=== PATIENT | male | born 1960 | race Caucasian/White ===

== ENCOUNTER → 2017-02-21 | Outpatient (CLI) | payer BC ==
[2017-02-24 18:04] LABS: Large VLDL Particle Number,NMR 1.8 nmol/L (<=2.7)
== END | disposition home or self-care (01) ==
LOC: LABWHC1 07:41
PROVIDERS: ATTEND Internal Medicine Cardiovascular Disease
DX: I10 Essential (primary) hypertension (principal)
CPT/HCPCS: 36415; 83704

== ENCOUNTER → 2017-04-23 | Outpatient (CLI) | payer BC ==
--- NOTE | 2017-04-23 10:12 | CT ---
EXAMINATION TYPE: CT abdomen pelvis w con DATE OF EXAM: 04/23/2017 COMPARISON: NONE HISTORY: 57-year-old male with full sensation, loss of appetite, wt loss TECHNIQUE: Contiguous axial scanning of the abdomen and pelvis following administration of 100 ml Omn ipaque 300 IV contrast. Delayed images through the kidneys and coronal/sagittal reconstructions perf ormed. CT DLP: 1859 mGycm Automated exposure control for dose reduction was used. FINDINGS: The heart is normal size without pericardial effusion. Visualized lung bases are clear without pleura l effusion. - There is paraesophageal lymphadenopathy measuring up to 2.8 cm. Some areas are difficult to delinea te from the distal esophagus. - Retrocrural lymphadenopathy measuring up to 1.2 cm on the right. - Gastrohepatic ligament lymph nodes measuring up to 1 cm. - Peripancreatic lymph nodes measuring up to 1.3 cm. Numerous are present. - Lymph nodes at the splenic hilum are conglomerate measuring up to 5.8 cm. - Portacaval lymph node measures up to 2.0 cm. - Retroperitoneal lymphadenopathy is present diffusely largest in the left periaortic region measurin g up to 4.7 x 2.6 cm. - Right mid abdominal mesenteric mass is conglomerate measuring up to 12.9 x 11.9 cm. There is focal wall thickening of the small bowel which shows focal dilatation along the third segmen t of the duodenum, axial image 43. Spleen enlarged measuring 16.3 cm craniocaudal with multiple hypodense lesions measuring up to 6.1 cm . Tiny subcentimeter hypodensities within the right liver lobe are nonspecific, probable cysts. 1.3 cm hypodensity posterior upper pole right kidney too small for accurate CT characterization but p robably representing a cyst. Gallbladder, adrenal glands, and left kidney within normal limits. No definite abnormality of the ball creas though there are multiple adjacent peripancreatic lymph nodes. There is otherwise no dilated small bowel or free air. Oral contrast has progressed to the proximal t ransverse colon. No significant stool burden. Sigmoid diverticulosis without pericolonic inflammatory change. Mild to moderate circumferential bladder wall thickening. Prostate gland mildly enlarged at 5.1 cm wi de with central calcifications. Trace pelvic free fluid is noted. No pelvic lymphadenopathy seen. Bones: Endplate spondylosis lower thoracic spine. No osseous destructive process. IMPRESSION: 1. LOWER PARAESOPHAGEAL, UPPER ABDOMINAL, MESENTERIC, AND RETROPERITONEAL LYMPHADENOPATHY. LARGEST CO NGLOMERATE SABAS MASS IS IN THE RIGHT MESENTERY MEASURING UP TO 12.9 CM AND LEFT PERIAORTIC LYMPH NOD E MEASURES UP TO 4.7 CM. 2. ADDITIONAL SPLENOMEGALY (16.3 CM) WITH NUMEROUS LESIONS MEASURING UP TO 6.1 CM. 3. FOCAL WALL THICKENING OF THE THIRD PORTION OF THE DUODENUM WHICH SHOWS SOME ANEURYSMAL DILATATION. 4. GIVEN THE ABOVE FINDINGS, LYMPHOMA IS FAVORED. METASTATIC DISEASE FROM AN UNKNOWN PRIMARY WOULD BE THE ALTERNATIVE CONSIDERATION. 5. SOME OF THE PARAESOPHAGEAL SOFT TISSUE IS DIFFICULT TO SEPARATE FROM THE ESOPHAGUS. WHILE AN ESOPH AGEAL MASS IS CONSIDERED LESS LIKELY, DIRECT VISUALIZATION CAN EXCLUDE THIS POSSIBILITY. 6. SIGMOID DIVERTICULOSIS. 7. CIRCUMFERENTIAL BLADDER WALL THICKENING COULD REPRESENT CYSTITIS OR CHRONIC BLADDER WALL HYPERTROP HY. CLINICALLY CORRELATE.
== END | disposition home or self-care (01) ==
LOC: RADCTMAIN 07:24
PROVIDERS: ATTEND Family Medicine
DX: R59.0 Localized enlarged lymph nodes (principal); K57.90 Diverticulosis of intestine, part unspecified, without perforation or abscess without bleeding; R16.1 Splenomegaly, not elsewhere classified; E07.89 Other specified disorders of thyroid; N32.89 Other specified disorders of bladder
CPT/HCPCS: 74177; Q9967

== ENCOUNTER 2017-05-07 12:08 | Day surgery (SDC) | payer BC ==
--- NOTE | 2017-05-07 13:59 | US ---
ULTRASOUND GUIDED CORE BIOPSY LEFT NECK LYMPHADENOPATHY: CLINICAL HISTORY: Left supraclavicular lymphadenopathy FINDINGS: The procedure was explained to the patient. The risks, complications, benefits and alternatives were discussed and any questions were answered. Informed consent was obtained. Patient was placed supin e on the ultrasound table and prepped and draped in the usual sterile fashion. Utilizing a 18-gauge core biopsy needle, four passes were made into the left neck mass. Patient was stable throughout the procedure. Pathology is pending. All elements of maximal barrier and sterile technique were utilized. IMPRESSION: 1. Successful ultrasound guided core biopsy left neck mass. Pathology pending.
[2017-05-07 23:27] VITALS: BP 141/73; PULSE 85; RESP 16; TEMP 97.3
== END 2017-05-07 13:25 | disposition home or self-care (01) ==
LOC: RADPROMAIN 12:08
PROVIDERS: ATTEND Internal Medicine Hematology & Oncology
DX: C83.31 Diffuse large B-cell lymphoma, lymph nodes of head, face, and neck (principal)
CPT/HCPCS: 20206; 76942; 88305; 88341; 88342

== ENCOUNTER → 2017-05-10 | Outpatient (CLI) | payer BC ==
--- NOTE | 2017-05-10 22:48 | PE ---
EXAMINATION TYPE: PET CT fusion skull to thigh DATE OF EXAM: 05/10/2017 COMPARISON: CT abdomen and pelvis April 23, 2017 HISTORY: Newly diagnosed lymphoma. TECHNIQUE: Following the intravenous administration of 14.49 mCi of F-18 FDG, whole body images are performed from the skull base to the midthigh. Images are reviewed on the computer in the coronal, a xial, and sagittal planes. Reconstructed rotating images are created on independent workstation and reviewed on the computer. A noncontrast CT is performed in conjunction with the PET scan. SCAN: Initial Scan FINDINGS: Average SUV of liver: 1.67 Average SUV of mediastinum: 0.83 SKULL BASE AND NECK: There is hypermetabolic 4 mm lymph node posterior left parotid gland on axial i mage 32. Corresponding to recent biopsy there are multiple hypermetabolic left supraclavicular lymph nodes bret r axial image 46 which have almost confluent appearance anteriorly, max SUV at this level is 17.58. T here is inferior and medial extension to the level of left thyroid gland noted. There are posterior supraclavicular hypermetabolic lymph nodes, for reference 10 x 9 mm lymph node an teriorly and medially to adjacent lymph node on axial image 46 has max SUV of 13.92. There are abnormal right supraclavicular lymph nodes with hypermetabolic uptake also identified near right thyroid lobe. CHEST, MEDIASTINUM, AND HILAR REGION: There is abnormal hypermetabolic left axillary lymph node measu ring 1.7 x 0.8 cm axial image 78 with max SUV of 11.88s. No suspicious right axillary adenopathy is p resent. There is large abnormal hypermetabolic subcarinal mass, this measures 5.7 x 3.0 cm axial image 92, ma x SUV is 25.19. Inferior to this there is abnormal hypermetabolic paraesophageal lymph node measuring 4.4 x 2.9 cm axial image 106 with max SUV of 19.8. There are additional multiple abnormal thoracic l ymph nodes prevascular region and paratracheal region, largest measures 1.6 x 1.5 cm axial image 78 w ith max SUV of 19.39. ABDOMEN AND PELVIS: There is marked splenomegaly with lobulation multifocal areas of hypermetabolic u ptake, measurement of lesions is difficult as they are fairly isodense on noncontrast study. Discrete lesions are seen better on recent contrast-enhanced CT. There is a central necrotic large lesion bret r axial image 120 with max SUV of. There is abnormal perisplenic and peripancreatic adenopathy in the upper abdomen near axial image 138 , confluent lymph node measures 4.3 x 4.2 cm, max SUV is 17.61. There are abnormal mesenteric and retroperitoneal lymph nodes, large right-sided confluent adenopathy felt to reflect mass of multiple lymph nodes is seen axial image 172 measuring 10 cm AP diameter by 12 cm transversely, max SUV is 27.76. Local mass effect is present. One of larger retroperitoneal lym ph nodes at the left para-aortic level posteriorly measuring 3.1 x 2.6 cm axial image 150, max SUV is 25.28. There is abnormal hypermetabolic right iliac lymph node measuring 2.3 x 1.0 cm axial image 207 with m ax SUV of 7.52. There are additional subcentimeter hypermetabolic distal right external iliac chain lymph nodes. Max SUV is 4.77. No definitive abnormal left pelvic or groin lymph nodes are seen bilaterally. OSSEOUS STRUCTURES: No abnormal hypermetabolic uptake is seen in osseous structures. OTHER CT: There is new fairly moderate to large size right pleural effusion. There is stable tiny pericardial effusion. There is stable irregular lesion with central gas in the posterior mid abdomen just anterior to the a wade just left of midline axial image 161 worrisome for large diverticulum or duodenal abscess. Corre late clinically. There is new inferior oval density axial image 165 could reflect ingested pill. Necr otic adenopathy is in differential. Sigmoid colonic diverticulosis is redemonstrated. Bladder wall thickness is felt upper limits of normal on current study. Some central zone calcificati ons in slightly enlarged prostate gland is redemonstrated. There is mild facet arthropathy lower lumbar levels. IMPRESSION: 1. There is lymphoma or neoplastic involvement above and below diaphragm as detailed above. 2. New moderate to large size right pleural effusion . 3. Persistent suspicious lesion anterior to distal third portion of duodenum could reflect intra-abdo frida abscess. Correlate clinically.
== END | disposition home or self-care (01) ==
LOC: RADPETMAIN 10:50
PROVIDERS: ATTEND Internal Medicine Hematology & Oncology
DX: C96.Z Other specified malignant neoplasms of lymphoid, hematopoietic and related tissue (principal); J90 Pleural effusion, not elsewhere classified
CPT/HCPCS: 78815; A9552

== ENCOUNTER 2017-05-14 10:02 | Day surgery (SDC) | payer BC ==
[2017-05-14 10:22] VITALS: TEMP 98.6
--- NOTE | 2017-05-14 10:42 | P.GSHP ---
History of Present Illness H&P Date: 05/14/17 Chief Complaint: Lymphoma Patient has been having complaints of pain in the upper abdomen. A CAT scan showed lymphadenopathy suspicious for lymphoma. A needle biopsy of a lymph node in the left neck took place confirming lymphoma. Patient is here today for Port-A-Cath placement. He is also going to have a bone marrow biopsy done simultaneously. Past Medical History Past Medical History: Hypertension Additional Past Medical History / Comment(s): being investigated for lymphoma History of Any Multi-Drug Resistant Organisms: None Reported Past Psychological History: No Psychological Hx Reported Smoking Status: Never smoker Past Alcohol Use History: Occasional Past Drug Use History: None Reported - Past Family History Father Family Medical History: Prostate Disorder Medications and Allergies Home Medications Medication Instructions Recorded Confirmed Type Aspirin [Adult Low Dose Aspirin EC] 81 mg PO DAILY 05/07/17 05/07/17 History Losartan/Hydrochlorothiazide 1 each PO DAILY 05/07/17 05/07/17 History [Losartan-Hctz 100-25 mg Tab] Metoprolol Succinate [Toprol XL] 50 mg PO DAILY 05/07/17 05/07/17 History Potassium Chloride [Klor-Con 10] 10 meq PO DAILY 05/07/17 05/07/17 History Tamsulosin HCl [Flomax] 0.4 mg PO DAILY 05/07/17 05/07/17 History amLODIPine [Norvasc] 10 mg PO DAILY 05/07/17 05/07/17 History Allergies Allergy/AdvReac Type Severity Reaction Status Date / Time No Known Allergies Allergy Verified 05/14/17 10:40 Surgical - Exam Vital Signs Temp Pulse Resp BP Pulse Ox 98.6 F 95 18 131/69 95 05/14/17 10:21 05/14/17 10:21 05/14/17 10:21 05/14/17 10:21 05/14/17 10:21 Physical exam: General: Well-developed, well-nourished HEENT: Normocephalic, sclerae nonicteric, left neck adenopathy Abdomen: Nontender, nondistended Extremities: No edema Neuro: Alert and oriented Assessment and Plan (1) Lymphoma Narrative/Plan: Will proceed with Port-A-Cath placement at this time. Risks of bleeding, infection, DVT, pneumothorax, catheter malfunction, anesthesia related complications were discussed. The patient understands and wishes to proceed. Current Visit: Yes Status: Acute Code(s): C85.90 - NON-HODGKIN LYMPHOMA, UNSPECIFIED, UNSPECIFIED SITE SNOMED Code(s): 816184221
[2017-05-14] MEDS ORDERED: LIDOCAINE 1% 20 ML VIAL (10MG/ML) FOR IV START INTRADERMA ONE (11:00)
[2017-05-14] MEDS ORDERED: LACTATED RINGERS 1,000 ML IV ONE (11:04)
[2017-05-14] MEDS ORDERED: MIDAZOLAM 2 MG/2 ML VIAL ONE (11:10)
[2017-05-14] MEDS ORDERED: GLYCOPYRROLATE 0.2 MG/ML 2 ML VIAL ONE (11:10)
[2017-05-14] MEDS ORDERED: PROPOFOL 10 MG/ML 20 ML VIAL IV ONE (11:10)
[2017-05-14] MEDS ORDERED: KETAMINE 10 MG/ML 20 ML VIAL ONE (11:10)
[2017-05-14] MEDS ORDERED: fentaNYL (PF) 50 MCG/ML 2 ML AMP ONE (11:10)
[2017-05-14] MEDS ORDERED: SODIUM CHLORIDE 0.9% 50 ML with ceFAZolin 2,000 MG IV ONE ×2 (11:30)
[2017-05-14] MEDS ORDERED: HEPARIN SODIUM,PORCINE 100 UNIT/ML 5 ML VIAL IV ONE (11:35)
[2017-05-14] MEDS ORDERED: LIDOCAINE (PF) 10 MG/ML 2 ML VIAL SQ ONE (11:36)
[2017-05-14] MEDS ORDERED: HYDROcodone/APAP 5-325MG 1 EACH TAB PO PRN (12:09)
[2017-05-14] MEDS ORDERED: NALOXONE 0.4 MG/ML 1 ML VIAL IV PRN (12:09)
--- NOTE | 2017-05-14 12:09 | P.OP ---
Date of Procedure: 05/14/17 Procedure(s) Performed: PREOPERATIVE DIAGNOSIS: Lymphoma POSTOPERATIVE DIAGNOSIS: Same PROCEDURE: Port-A-Cath placement SURGEON: Mary EBL: Minimal ANESTHESIA: Sedation COMPLICATIONS: None OPERATIVE PROCEDURE: Patient was brought and placed on the operative table in the supine position. The patient was sedated per anesthesia that time. The chest and neck were prepped and draped in usual sterile fashion. The ultrasound probe was used to identify the location of the right internal jugular vein. The skin was localized with lidocaine. The Seldinger needle was advanced into the IJ under ultrasound guidance. The wire was advanced through the needle under fluoroscopic guidance into the superior vena cava. A port pocket was created in the right infraclavicular location. The catheter was tunneled from the wire entrance site to the port pocket. The port was then connected to the catheter. The dilator introducer was threaded over the guidewire. The guidewire and dilator were then removed. The catheter was advanced through the introducer and introducer was then removed. The tip was seen to be in the right atrial junction. Port was flushed with both saline and a Hep-Lock solution. There was good flow both in and out of the port. The port was sutured in underlying tissues using 3-0 silk sutures. The subcutaneous tissues were reapproximated using 3-0 Vicryl sutures and the skin at both locations using 4-0 Monocryl sutures. Steri-Strips and sterile dressings then applied. DISPOSITION: Stable to recovery room
[2017-05-14] MEDS ORDERED: LIDOCAINE 2% (PF) 20 MG/ML 2 ML VIAL SQ ONE (12:12)
--- NOTE | 2017-05-14 12:15 | FL ---
Fluoroscopy History: Port-A-Cath insertion dr. oreilly supervised use of anastacio for the insert of a portacath. 33 secs fluoro and 1 paper image
[2017-05-14] MEDS ORDERED: DEXAMETHASONE SOD PHOSPHATE 10 MG/ML 1 ML VIAL IV ONE (12:39)
[2017-05-14] MEDS ORDERED: LACTATED RINGERS 1,000 ML IV SCH (12:39)
[2017-05-14] MEDS ORDERED: HYDROmorphone 0.5 MG/0.5 ML SYRINGE IVP PRN (12:39)
[2017-05-14] MEDS ORDERED: ONDANSETRON 4 MG/2 ML VIAL IVP ONE (12:39)
[2017-05-14 12:53] VITALS: RESP 16
--- NOTE | 2017-05-14 12:58 | XR ---
EXAMINATION TYPE: XR chest 1V DATE OF EXAM: 05/14/2017 HISTORY: Line placement COMPARISON: None TECHNIQUE: Single view of the chest is submitted. FINDINGS: Right-sided central venous line is noted with its distal tip overlying the SVC. There is no evidence for pneumothorax. Demonstrated are scattered senescent parenchymal change. Right basilar infiltrate and/or atelectasis identified. The heart is stable. Hilar and mediastinal structures are within normal limits. Degenerative changes are seen of the dorsal spine. IMPRESSION: 1. Right-sided central venous line as discussed.
[2017-05-14 13:20] VITALS: BP 112/74; PULSE 77
[2017-05-14 13:38] LABS: Basophils # (A) 0.1 k/uL (0-0.2); Basophils % (A) 1 %; Eosinophils # (A) 0.1 k/uL (0-0.7); Eosinophils % (A) 2 %; HCT 35.3 % (39.0-53.0); Lymphocytes # (A) 0.2 k/uL (1.0-4.8); Lymphocytes % (A) 5 %; MCH 26.4 pg (25.0-35.0); MCHC 31.2 g/dL (31.0-37.0); MCV 84.7 fL (80.0-100.0); Mean Platelet Volume 8.6; Monocytes # (A) 0.6 k/uL (0-1.0); Monocytes % (A) 12 %; Neutrophils # (A) 3.8 k/uL (1.3-7.7); Neutrophils % (A) 78 %; Platelet Count 213 k/uL (150-450); RBC 4.17 m/uL (4.30-5.90); RDW 13.9 % (11.5-15.5); WBC 4.9 k/uL (3.8-10.6)
--- NOTE | 2017-05-14 14:17 | PCN ---
PROCEDURE NOTE DATE OF PROCEDURE: May 14, 2017. PREOP DIAGNOSIS: Non-Hodgkin lymphoma. POSTOP DIAGNOSIS: Non-Hodgkin lymphoma. PROCEDURE: Bone marrow aspirate and biopsy SITE: Right iliac crest. ANESTHESIA: Local with IV systemic sedation. DETAILS: Utilizing sterile technique, the skin overlying the right iliac crest was prepared with Betadine and alcohol. After adequate sterile draping systemic sedation, local anesthesia with 1% lidocaine size 11 4 inch Jamshidi needle utilized to access the periosteum disease. A total of 15 mL of aspirate were obtained as well as 1 cm core biopsy. The patient tolerated the procedure well. There was no immediate procedure related complications. TOTAL BLOOD LOSS: Less than 1 mL. RESULTS: Pending. MMODL / IJN: [id number] /
== END 2017-05-14 13:35 | disposition home or self-care (01) ==
LOC: OR 10:02
PROVIDERS: ATTEND Surgery
DX: C85.81 Other specified types of non-Hodgkin lymphoma, lymph nodes of head, face, and neck (principal); I10 Essential (primary) hypertension; N42.9 Disorder of prostate, unspecified; Z79.82 Long term (current) use of aspirin; Z79.899 Other long term (current) drug therapy
CPT/HCPCS: 36561; 76937; 38222; 85025; 77001; 71045; C1788; J2250; J2001 ×2; J1642; J3010; J0690; J2704

== ENCOUNTER 2017-05-19 09:47 | Inpatient (IN) | payer BC ==
--- NOTE | 2017-05-19 10:36 | ED ---
General Adult HPI - General Chief complaint: Shortness of Breath Stated complaint: MERLENE, COUGH FOLLOWING SUHAIL PORT Time Seen by Provider: 05/19/17 10:00 Source: patient, RN notes reviewed Mode of arrival: ambulatory Limitations: no limitations - History of Present Illness Initial comments: This is a 57-year-old male who presents emergency Department with a recent diagnosis of lymphoma May 05. Patient had a port placed last Friday. Patient states over the last couple of days he's been short of breath and is finding it difficult to even walk from room to room. Patient denies any chest pain or palpitations. Patient states he does not have a fever or chills today but the other day he did have a temp of 100. Patient denies any significant abdominal pain patient denies nausea vomiting diarrhea. Denies any lightheadedness or dizziness. - Related Data Home Medications Medication Instructions Recorded Confirmed Losartan/Hydrochlorothiazide 1 tab PO DAILY 05/07/17 05/19/17 [Losartan-Hctz 100-25 mg Tab] Metoprolol Succinate [Toprol XL] 50 mg PO DAILY 05/07/17 05/19/17 Potassium Chloride [Klor-Con 10] 10 meq PO DAILY 05/07/17 05/19/17 Tamsulosin HCl [Flomax] 0.4 mg PO HS 05/07/17 05/19/17 amLODIPine [Norvasc] 10 mg PO HS 05/07/17 05/19/17 Allergies Allergy/AdvReac Type Severity Reaction Status Date / Time No Known Allergies Allergy Verified 05/19/17 10:34 Review of Systems ROS Statement: Those systems with pertinent positive or pertinent negative responses have been documented in the HPI. ROS Other: All systems not noted in ROS Statement are negative. Past Medical History Past Medical History: Cancer, Hypertension Additional Past Medical History / Comment(s): being investigated for lymphoma History of Any Multi-Drug Resistant Organisms: None Reported Additional Past Surgical History / Comment(s): port placement Past Psychological History: No Psychological Hx Reported Smoking Status: Never smoker Past Alcohol Use History: Occasional Past Drug Use History: None Reported - Past Family History Father Family Medical History: Prostate Disorder General Exam - General Exam Comments Initial Comments: GENERAL: Patient is well-developed and well-nourished. Patient is nontoxic and well- hydrated and is in mild distress. ENT: Neck is soft and supple. No significant lymphadenopathy is noted. Oropharynx is clear. Moist mucous membranes. Neck has full range of motion without eliciting any pain. EYES: The sclera were anicteric and conjunctiva were pink and moist. Extraocular movements were intact and pupils were equal round and reactive to light. Eyelids were unremarkable. PULMONARY: Lung sounds are very diminished along the right side. CARDIOVASCULAR: There is a regular rate and rhythm without any murmurs gallops or rubs. ABDOMEN: Soft and nontender with normal bowel sounds. No palpable organomegaly was noted. There is no palpable pulsatile mass. SKIN: Skin is clear with no lesions or rashes and otherwise unremarkable. NEUROLOGIC: Patient is alert and oriented x3. Cranial nerves II through XII are grossly intact. Motor and sensory are also intact. Normal speech, volume and content. Symmetrical smile. MUSCULOSKELETAL: Normal extremities with adequate strength and full range of motion. No edema bilaterally no calf pain bilaterally LYMPHATICS: No significant lymphadenopathy is noted PSYCHIATRIC: Normal psychiatric evaluation. Normal interpersonal interactions appears functionally intact in deals appropriately with others. No signs of depression. No signs of anxiety. Limitations: no limitations Course Vital Signs 05/19/17 05/19/17 05/19/17 10:01 10:15 12:55 Temperature 98.0 F Pulse Rate 99 90 Respiratory 18 26 H 18 Rate Blood Pressure 158/91 134/81 O2 Sat by Pulse 95 92 L Oximetry Medical Decision Making - Medical Decision Making EKG shows normal sinus rhythm at 93 bpm. It was 116 QRS is 86 QT interval 350 QTC is 435. Patient's EKG shows Q waves in leads 3 and aVF. - Lab Data Result diagrams: 05/19/17 10:30 05/19/17 10:30 Lab Results 05/19/17 05/19/17 05/19/17 Range/Units 10:30 10:30 10:30 WBC 6.5 (3.8-10.6) k/uL RBC 5.04 (4.30-5.90) m/uL Hgb 13.1 (13.0-17.5) gm/dL Hct 41.5 (39.0-53.0) % MCV 82.4 (80.0-100.0) fL MCH 26.0 (25.0-35.0) pg MCHC 31.6 (31.0-37.0) g/dL RDW 15.1 (11.5-15.5) % Plt Count 257 (150-450) k/uL Neutrophils % 80 % Lymphocytes % 4 % Monocytes % 10 % Eosinophils % 2 % Basophils % 1 % Neutrophils # 5.2 (1.3-7.7) k/uL Lymphocytes # 0.3 L (1.0-4.8) k/uL Monocytes # 0.7 (0-1.0) k/uL Eosinophils # 0.1 (0-0.7) k/uL Basophils # 0.1 (0-0.2) k/uL PT (9.0-12.0) sec INR (<1.2) APTT (22.0-30.0) sec D-Dimer (<0.60) mg/L FEU Sodium 142 (137-145) mmol/L Potassium 3.5 (3.5-5.1) mmol/L Chloride 103 (98-107) mmol/L Carbon Dioxide 27 (22-30) mmol/L Anion Gap 12 mmol/L BUN 20 (9-20) mg/dL Creatinine 1.01 (0.66-1.25) mg/dL Est GFR (MDRD) Af Amer >60 (>60 ml/min/1.73 sqM) Est GFR (MDRD) Non-Af >60 (>60 ml/min/1.73 sqM) Glucose 114 H (74-99) mg/dL Calcium 10.4 H (8.4-10.2) mg/dL Magnesium 2.0 (1.6-2.3) mg/dL Total Bilirubin 0.7 (0.2-1.3) mg/dL AST 46 (17-59) U/L ALT 26 (21-72) U/L Alkaline Phosphatase 59 (38-126) U/L Total Creatine Kinase 30 L (55-170) U/L CK-MB (CK-2) 0.6 (0.0-2.4) ng/mL CK-MB (CK-2) Rel Index 2.0 Troponin I <0.012 (0.000-0.034) ng/mL NT-Pro-B Natriuret Pep pg/mL Total Protein 6.7 (6.3-8.2) g/dL Albumin 4.0 (3.5-5.0) g/dL 05/19/17 05/19/17 Range/Units 10:30 10:30 WBC (3.8-10.6) k/uL RBC (4.30-5.90) m/uL Hgb (13.0-17.5) gm/dL Hct (39.0-53.0) % MCV (80.0-100.0) fL MCH (25.0-35.0) pg MCHC (31.0-37.0) g/dL RDW (11.5-15.5) % Plt Count (150-450) k/uL Neutrophils % % Lymphocytes % % Monocytes % % Eosinophils % % Basophils % % Neutrophils # (1.3-7.7) k/uL Lymphocytes # (1.0-4.8) k/uL Monocytes # (0-1.0) k/uL Eosinophils # (0-0.7) k/uL Basophils # (0-0.2) k/uL PT 10.8 (9.0-12.0) sec INR 1.1 (<1.2) APTT 23.3 (22.0-30.0) sec D-Dimer 4.41 H (<0.60) mg/L FEU Sodium (137-145) mmol/L Potassium (3.5-5.1) mmol/L Chloride (98-107) mmol/L Carbon Dioxide (22-30) mmol/L Anion Gap mmol/L BUN (9-20) mg/dL Creatinine (0.66-1.25) mg/dL Est GFR (MDRD) Af Amer (>60 ml/min/1.73 sqM) Est GFR (MDRD) Non-Af (>60 ml/min/1.73 sqM) Glucose (74-99) mg/dL Calcium (8.4-10.2) mg/dL Magnesium (1.6-2.3) mg/dL Total Bilirubin (0.2-1.3) mg/dL AST (17-59) U/L ALT (21-72) U/L Alkaline Phosphatase (38-126) U/L Total Creatine Kinase (55-170) U/L CK-MB (CK-2) (0.0-2.4) ng/mL CK-MB (CK-2) Rel Index Troponin I (0.000-0.034) ng/mL NT-Pro-B Natriuret Pep 243 pg/mL Total Protein (6.3-8.2) g/dL Albumin (3.5-5.0) g/dL Disposition Clinical Impression: Pleural effusion, Collapsed lung, History of lymphoma Disposition: ADMITTED IP TO THIS HOSP Referrals: Estee Trinh III, MD [Primary Care Provider] - 1-2 days Time of Disposition: 13:25
[2017-05-19 10:48] LABS: Basophils # (A) 0.1 k/uL (0-0.2); Basophils % (A) 1 %; Eosinophils # (A) 0.1 k/uL (0-0.7); Eosinophils % (A) 2 %; HCT 41.5 % (39.0-53.0); HGB 13.1 gm/dL (13.0-17.5); Lymphocytes # (A) 0.3 k/uL (1.0-4.8); Lymphocytes % (A) 4 %; MCHC 31.6 g/dL (31.0-37.0); MCV 82.4 fL (80.0-100.0); Mean Platelet Volume 8.2; Monocytes # (A) 0.7 k/uL (0-1.0); Monocytes % (A) 10 %; Neutrophils # (A) 5.2 k/uL (1.3-7.7); Neutrophils % (A) 80 %; Platelet Count 257 k/uL (150-450); RBC 5.04 m/uL (4.30-5.90); RDW 15.1 % (11.5-15.5); WBC 6.5 k/uL (3.8-10.6)
[2017-05-19 10:56] LABS: ALT 26 U/L (21-72); AST 46 U/L (17-59); Alkaline Phosphatase 59 U/L (38-126); Anion Gap 12 mmol/L; Blood Urea Nitrogen 20 mg/dL (9-20); Calcium 10.4 mg/dL (8.4-10.2); Carbon Dioxide 27 mmol/L (22-30); Chloride 103 mmol/L (98-107); Glucose 114 mg/dL (74-99); Potassium 3.5 mmol/L (3.5-5.1); Sodium 142 mmol/L (137-145); Total Bilirubin 0.7 mg/dL (0.2-1.3); Total Protein 6.7 g/dL (6.3-8.2)
[2017-05-19 11:09] LABS: D-Dimer 4.41 mg/L FEU (<0.60); INR 1.1 (<1.2); Partial Thromboplastin Time 23.3 sec (22.0-30.0); Prothrombin Time 10.8 sec (9.0-12.0)
--- NOTE | 2017-05-19 11:14 | XR ---
EXAMINATION TYPE: XR chest 2V DATE OF EXAM: 05/19/2017 COMPARISON: 05/14/2017 HISTORY: 57-year-old male difficulty breathing, shortness of breath for 3 days TECHNIQUE: PA and lateral views FINDINGS: Right heart margin obscured by new complete whiteout of the right hemithorax. The left hemithorax rem ains clear. Right-sided injection port with catheter tip at the lower SVC. IMPRESSION: Worsening right-sided pleural effusion now with complete white out of the right hemithorax.
[2017-05-19 11:15] LABS: Creatine Kinase 30 U/L (55-170)
[2017-05-19 11:28] LABS: Creatine Kinase MB 0.6 ng/mL (0.0-2.4); Troponin I <0.012 ng/mL (0.000-0.034)
[2017-05-19] MEDS ORDERED: RX INFO: IV CONTRAST WAS GIVEN 1 EACH MISC MISCELLANE PRN (11:59)
--- NOTE | 2017-05-19 12:49 | CT ---
EXAMINATION TYPE: CT chest angio for PE DATE OF EXAM: 05/19/2017 COMPARISON: 04/23/2017 HISTORY: Shortness of breath and cough CT DLP: 526 mGycm CONTRAST: CT chest with contrast and 3D reconstruction with MIP imaging is performed with IV Contrast, patient injected with 100 mL of Omnipaque 350. Contrast-enhanced CT of the chest was performed through the course of the pulmonary arteries with zabrina g and mediastinal window settings submitted. 3D reconstruction with MIP imaging was also performed. PULMONARY ARTERIES: The pulmonary arteries and their major tributaries are patent. I do not see ricci dence for sizable filling defect to suggest pulmonary embolic process. LUNGS: Interval development of complete collapse of the right lung with filling of the entire right h emithorax with fluid. Suspect central obstructing lesion. Left lung is hypoaerated without distinct n odule mass or infiltrate at this time. MEDIASTINUM: Mediastinal structures are displaced from right to left. Thoracic aorta is of normal ca liber . The heart is not enlarged. Soft tissue mass adjacent to the esophagus displacing it from righ t to left measures 4.4 cm and has been described previously. This mass may BE of esophageal origin or related to adenopathy. Right paratracheal adenopathy measures 1.8 cm. AP window adenopathy measures 1.8 cm. UPPER ABDOMEN: Upper abdominal adenopathy described previously. Multiple splenic lesions. IMPRESSION: 1. No evidence for Pulmonary embolism at this time. 2.Interval development of complete collapse of the right lung with filling of the entire right hemith orax with fluid. Suspect central obstructing lesion. 3. Soft tissue mass adjacent to the mid to distal esophagus as discussed above.
--- NOTE | 2017-05-19 17:07 | P.HPIM ---
History of Present Illness This is a 57-year-old male who presents emergency Department with a recent diagnosis of lymphoma May 05. Patient had a port placed last Friday. Patient states over the last couple of days he's been short of breath and is finding it difficult to even walk from room to room. Patient denies any chest pain or palpitations. Patient states he does not have a fever or chills today but the other day he did have a temp of 100. Patient denies any significant abdominal pain patient denies nausea vomiting diarrhea. Denies any lightheadedness or dizziness. Patient did get a CAT scan which showed A pleural effusion involving the whole entire right hemithorax. A low-grade fever although does not appear to have pneumonic process low-grade fever is probably related to lymphoma itself and patient had a recent right hemithorax port put in. Does have dry cough from pleural effusion. Pulmonology was consulted patient probably will need cardiac thoracic surgery consult as well discussed with the Dr. Hernandez who put in the Port-A-Cath Review of Systems REVIEW OF SYSTEMS: CONSTITUTIONAL: No fever, no malaise, no fatigue. HEENT: No recent visual problems or hearing problems. Denied any sore throat. CARDIOVASCULAR: No chest pain, orthopnea, PND, no palpitations, no syncope. PULMONARY: As mentioned above GASTROINTESTINAL: No diarrhea, no nausea, no vomiting, no abdominal pain. Normoactive bowel sounds. NEUROLOGICAL: No headaches, no weakness, no numbness. HEMATOLOGICAL: Denies any bleeding or petechiae. GENITOURINARY: Denies any burning micturition, frequency, or urgency. MUSCULOSKELETAL/RHEUMATOLOGICAL: Denies any joint pain, swelling, or any muscle pain. ENDOCRINE: Denies any polyuria or polydipsia. The rest of the 14-point review of systems is negative. Past Medical History Past Medical History: Cancer, Hypertension, Prostate Disorder Additional Past Medical History / Comment(s): Lymphoma recently diagonosed, BPH History of Any Multi-Drug Resistant Organisms: None Reported Additional Past Surgical History / Comment(s): port placement, BMA, 2013 colonoscopy, anal fissure repair. Past Anesthesia/Blood Transfusion Reactions: No Reported Reaction Smoking Status: Never smoker - Past Family History Father Family Medical History: Prostate Disorder Additional Family Medical History / Comment(s): Father had prostrate cancer. He had a mass in his chest. Mother Family Medical History: Hypertension Additional Family Medical History / Comment(s): Mother of a aortic aneurysm dissection. Medications and Allergies Home Medications Medication Instructions Recorded Confirmed Type Losartan/Hydrochlorothiazide 1 tab PO DAILY 05/07/17 05/19/17 History [Losartan-Hctz 100-25 mg Tab] Metoprolol Succinate [Toprol XL] 50 mg PO DAILY 05/07/17 05/19/17 History Potassium Chloride [Klor-Con 10] 10 meq PO DAILY 05/07/17 05/19/17 History Tamsulosin HCl [Flomax] 0.4 mg PO HS 05/07/17 05/19/17 History amLODIPine [Norvasc] 10 mg PO HS 05/07/17 05/19/17 History Allergies Allergy/AdvReac Type Severity Reaction Status Date / Time No Known Allergies Allergy Verified 05/19/17 10:34 Physical Exam Vitals: Vital Signs Temp Pulse Pulse Resp BP BP Pulse Ox 05/19/17 15:24 20 05/19/17 15:00 98.5 F 93 18 134/91 97 05/19/17 14:08 62 20 123/79 93 L 05/19/17 12:55 90 18 134/81 92 L 05/19/17 10:15 26 H 05/19/17 10:01 98.0 F 99 18 158/91 95 Intake and Output 05/19/17 05/19/17 05/19/17 06:59 14:59 22:59 Other: Voiding Method Toilet # Voids 1 Weight 99.79 kg Patient Weight 05/20/17 06:59 Weight 99.79 kg PHYSICAL EXAMINATION: GENERAL: The patient is alert and oriented x3, not in any acute distress. Well developed, well nourished. HEENT: Pupils are round and equally reacting to light. EOMI. No scleral icterus. No conjunctival pallor. Normocephalic, atraumatic. No pharyngeal erythema. No thyromegaly. CARDIOVASCULAR: S1 and S2 present. No murmurs, rubs, or gallops. PULMONARY: Decreased air entry into right lung cid and stony dullness on the right side ABDOMEN: Soft, nontender, nondistended, normoactive bowel sounds. No palpable organomegaly. MUSCULOSKELETAL: No joint swelling or deformity. EXTREMITIES: No cyanosis, clubbing, or pedal edema. NEUROLOGICAL: Gross neurological examination did not reveal any focal deficits. SKIN: No rashes. Results CBC & Chem 7: 05/19/17 10:30 05/19/17 10:30 Labs: Abnormal Lab Results - Last 24 Hours (Table) 05/19/17 05/19/17 05/19/17 Range/Units 10:30 10:30 10:30 Lymphocytes # 0.3 L (1.0-4.8) k/uL D-Dimer (<0.60) mg/L FEU Glucose 114 H (74-99) mg/dL Calcium 10.4 H (8.4-10.2) mg/dL Total Creatine Kinase 30 L (55-170) U/L 05/19/17 Range/Units 10:30 Lymphocytes # (1.0-4.8) k/uL D-Dimer 4.41 H (<0.60) mg/L FEU Glucose (74-99) mg/dL Calcium (8.4-10.2) mg/dL Total Creatine Kinase (55-170) U/L Thrombosis Risk Factor Assmnt - Choose All That Apply Any of the Below Risk Factors Present?: Yes Each Factor Represents 1 point: Age 41-60 years, Obesity (BMI >25) Other Risk Factors: Yes Each Risk Factor Represents 2 Points: Malignancy Other congenital or acquired thrombophilia - If yes, enter type in comment: No Thrombosis Risk Factor Assessment Total Risk Factor Score: 4 Thrombosis Risk Factor Assessment Level: Moderate Risk Assessment and Plan Plan: - shortness of breath: Secondary to right-sided pleural effusion there is no evidence of pneumonia at this point of time leave the decision of antibiotics to pulmonary patient although need will need a pleural tap will get pulmonology opinion regarding that. -Recently diagnosed lymphoma non-Hodgkin's -Cough secondary to right-sided pleural effusion -Hypertension patient blood pressures are essentially within normal lives with monitor tonight will not start him on any of his antitussive medications
--- NOTE | 2017-05-19 17:30 | US ---
EXAMINATION TYPE: US chest DATE OF EXAM: 05/19/2017 COMPARISON: NONE CLINICAL HISTORY: right pleural effusion. SOB, effusion EXAM MEASUREMENTS: Right Pleural Effusion fluid pocket: 13.3 cm Right skin to fluid thickness: 4.1 cm Right side marked for possible thoracentesis outside the dept. Pulmonologists are able to review the images in the patient?s EMR. IMPRESSIONS: The exam demonstrates a large right-sided pleural effusion.
[2017-05-19] MEDS: guaiFENesin SYRUP 100MG/5ML 200 MG/10 ML CUP PO PRN (19:31)
[2017-05-20] MEDS: guaiFENesin SYRUP 100MG/5ML 200 MG/10 ML CUP PO PRN ×3 (07:31→22:06)
--- NOTE | 2017-05-20 12:20 | XR ---
EXAMINATION TYPE: XR chest 1V portable DATE OF EXAM: 05/20/2017 COMPARISON: Prior chest x-ray dated 05/19/2017 HISTORY: Status post chest tube placement TECHNIQUE: Single frontal view of the chest is obtained. FINDINGS: Right-sided pigtail catheter has been placed in the posterior right chest. No other interv al change. IMPRESSION: No evident complication status post chest tube placement
--- NOTE | 2017-05-20 12:44 | P.CNPUL ---
History of Present Illness Consult date: 05/20/17 Requesting physician: Sonny Owusu Reason for consult: dyspnea, pleural effusion, abnormal CXR/CT Chief complaint: dyspnea, cough, large right pleural effusion History of present illness: John is a 57-year-old white male patient that follows with Dr. Bonilla for his recently diagnosed Non-Hodgkins lymphoma, that was discovered during evaluation of patient's loss of appetite, weight loss, abdominal discomfort, and full sensation with the CT of the abdomen and pelvis on 04/23/2017. This CT showed lower paraesophageal, upper abdominal, mesenteric and retroperitoneal lymphadenopathy, splenomegaly, and focal wall thickening of the duodenum. Patient had a ultrasound-guided core biopsy of the left neck lymphadenopathy on 05/07/2017. The results of the biopsy were positive for diffuse large B-cell lymphoma, germinal center type. Staging PET scan on 05/10/2017 shows lymphoma or neoplastic involvement above and below diaphragm, new moderate to large size right pleural effusion, and persistent suspicious lesion anterior to distal third portion of duodenum that could reflect intra-abdominal abscess. Patient presented to the emergency department on 05/19/2017 with complaints of increased shortness of breath, slight cough, severe limitation of activity related to his dyspnea, and orthopnea over the last couple of days. He denied any chest pain, fever or chills. Denied any chest wall tenderness or hemoptysis. He had a Port-a-Cath placed on 05/14/[address] Velazquez in his right upper chest. Chest x-ray post line placement showed no evidence of pneumothorax, but there was evidence of developing right-sided pleural effusion. Chest x-ray from 05/19/2017 taken in the ED, showed worsening right- sided pleural effusion with complete opacification consistent with right hemithorax. Chest CTA on 05/19/2017 showed no evidence for pulmonary embolism, but interval development of complete collapse of the right lung with filling of the entire right hemithorax with fluid. Soft tissue mass adjacent to the mid to distal esophagus. chest ultrasound from 05/19/2017 showed a right pleural effusion fluid pocket of 13.3 cm. Clinically patient continued on 2 L per nasal cannula with O2 sat between 94-97%. He is complaining of orthopnea, dyspnea. Cardiothoracic surgery was consulted and recommended placement of a pigtail catheter in the right pleural in view of rapid accumulation of fluid from 2017 to 05/19/2017 as evidenced on the radiographic studies, and in view of patient's underlying malignancy the likelihood of recurrency of the pleural fluid is high. Interventional radiology was consulted for placement of right pleural pigtail chest tube today. This was discussed with the patient, was in agreement with the plan. Review of Systems All systems: negative Constitutional: Denies chills, Denies fever Eyes: denies blurred vision, denies pain Ears, nose, mouth and throat: Denies headache, Denies sore throat Cardiovascular: Denies chest pain, Denies shortness of breath Respiratory: Denies cough Gastrointestinal: Denies abdominal pain, Denies diarrhea, Denies nausea, Denies vomiting Musculoskeletal: Denies myalgias Integumentary: Denies pruritus, Denies rash Neurological: Denies numbness, Denies weakness Psychiatric: Denies anxiety, Denies depression Endocrine: Denies fatigue, Denies weight change Past Medical History Past Medical History: Cancer, Hypertension, Prostate Disorder Additional Past Medical History / Comment(s): Lymphoma recently diagonosed, BPH History of Any Multi-Drug Resistant Organisms: None Reported Additional Past Surgical History / Comment(s): port placement, BMA, 2013 colonoscopy, anal fissure repair. Past Anesthesia/Blood Transfusion Reactions: No Reported Reaction Smoking Status: Never smoker - Past Family History Father Family Medical History: Prostate Disorder Additional Family Medical History / Comment(s): Father had prostrate cancer. He had a mass in his chest. Mother Family Medical History: Hypertension Additional Family Medical History / Comment(s): Mother of a aortic aneurysm dissection. Medications and Allergies Home Medications Medication Instructions Recorded Confirmed Type Losartan/Hydrochlorothiazide 1 tab PO DAILY 05/07/17 05/19/17 History [Losartan-Hctz 100-25 mg Tab] Metoprolol Succinate [Toprol XL] 50 mg PO DAILY 05/07/17 05/19/17 History Potassium Chloride [Klor-Con 10] 10 meq PO DAILY 05/07/17 05/19/17 History Tamsulosin HCl [Flomax] 0.4 mg PO HS 05/07/17 05/19/17 History amLODIPine [Norvasc] 10 mg PO HS 05/07/17 05/19/17 History Allergies Allergy/AdvReac Type Severity Reaction Status Date / Time No Known Allergies Allergy Verified 05/19/17 10:34 Physical Exam Vitals: Vital Signs Temp Pulse Pulse Resp BP BP Pulse Ox 05/20/17 11:54 101 H 16 125/78 94 L 05/20/17 11:29 106 H 16 96 05/20/17 07:35 20 05/20/17 07:00 97.8 F 98 20 141/83 97 05/19/17 22:17 98 F 102 H 17 132/82 96 05/19/17 15:24 20 05/19/17 15:00 98.5 F 93 18 134/91 97 05/19/17 14:08 62 20 123/79 93 L 05/19/17 12:55 90 18 134/81 92 L Intake and Output 05/19/17 05/20/17 05/20/17 22:59 06:59 14:59 Intake Total 1080 Output Total 240 Balance -240 1080 Intake: Oral 1080 Output: Urine 240 Other: Voiding Method Toilet Toilet Toilet # Voids 2 Weight 99.79 kg Patient Weight 05/21/17 06:59 Weight 99.79 kg GENERAL EXAM: Alert, pleasant, 57-year-old white male, slightly tachypneic, but in no acute distress HEAD: Normocephalic/atraumatic. EYES: Normal reaction of pupils, equal size. Conjunctiva pink, sclera white. NOSE: Clear with pink turbinates. THROAT: No erythema or exudates. NECK: No masses, no JVD, no thyroid enlargement, no adenopathy. CHEST: No chest wall deformity. Symmetrical expansion. LUNGS: Severely diminished lung sounds over right lung, clear on the left. CVS: Regular rate and rhythm, normal S1 and S2, no gallops, no murmurs, no rubs ABDOMEN: Soft, nontender. No hepatosplenomegaly, normal bowel sounds, no guarding or rigidity. EXTREMITIES: No clubbing, no edema, no cyanosis, 2+ pulses and upper and lower extremities. MUSCULOSKELETAL: Muscle strength and tone normal. SPINE: No scoliosis or deformity SKIN: No rashes CENTRAL NERVOUS SYSTEM: Alert and oriented -3. No focal deficits, tone is normal in all 4 extremities. PSYCHIATRIC: Alert and oriented -3. Appropriate affect. Intact judgment and insight. Results - Laboratory Findings CBC and BMP: 05/19/17 10:30 05/19/17 10:30 PT/INR, D-dimer PT 10.8 sec (9.0-12.0) 05/19/17 10:30 INR 1.1 (<1.2) 05/19/17 10:30 D-Dimer 4.41 mg/L FEU (<0.60) H 05/19/17 10:30 Abnormal lab findings: Abnormal Labs 05/19/17 05/19/17 05/19/17 10:30 10:30 10:30 Lymphocytes # 0.3 L D-Dimer Glucose 114 H Calcium 10.4 H Total Creatine Kinase 30 L 05/19/17 10:30 Lymphocytes # D-Dimer 4.41 H Glucose Calcium Total Creatine Kinase - Diagnostic Findings Chest x-ray: report reviewed CT scan - chest: report reviewed Additional studies: US chest reviewed Assessment and Plan Plan: Assessment: #1. Large right hemithorax, rapid progression from 05/14/2017 to 05/19/2017, on presentation chest x-ray on 05/19/2017 shows near complete opacification of the right lung due to the pleural effusion, with secondary dyspnea #2. Non-Hodgkin's lymphoma, recent diagnosis. Awaiting initiation of treatment this week #3. Elevated d-dimer, of 4.41, CTA chest negative for any evidence of pulmonary embolism. #3. Placement of Port-a-Cath in the right upper chest on 05/14/2017, with no complications #4. Essential hypertension Plan: Interventional radiology will be consulted for placement of a pigtail pleural chest tube. The patient is in agreement, and he scheduled to undergo the procedure today. No evidence of pneumonia on the chest x-ray or CTA. We'll restart patient's Toprol for his hypertension, to avoid rebound tachycardia or myocardial ischemia. We'll continue to follow closely. I performed a history & physical examination of the patient and discussed their management with my nurse practitioner, Nilsa Paredes. I reviewed the nurse practitioner's note and agree with the documented findings and plan of care. Lung sounds are diminished over right lung, clear on the left. The findings and the impression was discussed with the patient. I attest to the documentation by the nurse practitioner. Time with Patient: Greater than 30
--- NOTE | 2017-05-20 13:06 | P.GSCN ---
History of Present Illness Consult date: 05/20/17 Reason for Consult: Right pleural effusion History of present illness: Patient is known to our service. Recently diagnosed with Hodgkin's lymphoma. Underwent right IJ Port-A-Cath placement last Friday using ultrasound for guidance. His postoperative x-ray did reveal some effusion on the right. This appeared new when compared to the prior CAT scan. Over the last several days he has had increasing shortness of breath along with chronic cough. X-ray when he came to the hospital showed white out of the right chest. CT showed large right pleural effusion. Drain was placed today with chyle-appearing fluid. We were consulted because of the recent intervention. Review of Systems The patient denies any acute changes in vision or hearing, no dysphagia or odynophagia, no chest pain, no dysuria or hematuria, no headache, no runny nose , no rectal bleeding or melena, no unexplained weight loss Past Medical History Past Medical History: Cancer, Hypertension, Prostate Disorder Additional Past Medical History / Comment(s): Lymphoma recently diagonosed, BPH History of Any Multi-Drug Resistant Organisms: None Reported Additional Past Surgical History / Comment(s): port placement, BMA, 2013 colonoscopy, anal fissure repair. Past Anesthesia/Blood Transfusion Reactions: No Reported Reaction Smoking Status: Never smoker - Past Family History Father Family Medical History: Prostate Disorder Additional Family Medical History / Comment(s): Father had prostrate cancer. He had a mass in his chest. Mother Family Medical History: Hypertension Additional Family Medical History / Comment(s): Mother of a aortic aneurysm dissection. Medications and Allergies Home Medications Medication Instructions Recorded Confirmed Type Losartan/Hydrochlorothiazide 1 tab PO DAILY 05/07/17 05/19/17 History [Losartan-Hctz 100-25 mg Tab] Metoprolol Succinate [Toprol XL] 50 mg PO DAILY 05/07/17 05/19/17 History Potassium Chloride [Klor-Con 10] 10 meq PO DAILY 05/07/17 05/19/17 History Tamsulosin HCl [Flomax] 0.4 mg PO HS 05/07/17 05/19/17 History amLODIPine [Norvasc] 10 mg PO HS 05/07/17 05/19/17 History Allergies Allergy/AdvReac Type Severity Reaction Status Date / Time No Known Allergies Allergy Verified 05/19/17 10:34 Surgical - Exam Vital Signs Temp Pulse Resp BP Pulse Ox 98.0 F 99 18 158/91 95 05/19/17 10:01 05/19/17 10:01 05/19/17 10:01 05/19/17 10:01 05/19/17 10:01 Physical exam: General: Well-developed, well-nourished HEENT: Normocephalic, sclerae nonicteric, right sided Port-A-Cath clean and dry Abdomen: Nontender, nondistended Extremities: No edema Neuro: Alert and oriented Results - Labs 05/19/17 10:30 05/19/17 10:30 Microbiology - Last 24 Hours (Table) 05/19/17 10:30 Blood Culture - Preliminary Blood No Growth after 24 hours Assessment and Plan (1) Pleural effusion Narrative/Plan: Agree with plans for pleural drainage. Agree with cardiothoracic evaluation. Will follow. Current Visit: Yes Status: Acute Code(s): J90 - PLEURAL EFFUSION, NOT ELSEWHERE CLASSIFIED SNOMED Code(s): 28392707
--- NOTE | 2017-05-20 13:19 | US ---
EXAMINATION TYPE: US guided chest tube insertion DATE OF EXAM: 05/20/2017 HISTORY: pleural effusion FINDINGS: Maximal barrier technique was utilized. The skin overlying a suitable path to the pleural fluid in the posterior right chest was localized with ultrasound and the overlying skin prepped and d raped. Lidocaine was used for local anesthesia. A skin el made with a scalpel. Access was gained under direct ultrasound guidance to the fluid with a 21-gauge needle. Ultrasound was utilized using sterile technique. A 0.018 inch wire was advanced. Access site was dilated and an 8-Upper Sorbian catheter advanced into the pleural effusion. Cream-colored fluid returned. Specimen obtained for laboratory a nalysis. Catheter fixed to the skin. Hemostasis achieved. No immediate complication and the patient remained in stable condition. IMPRESSION: STATUS POST ULTRASOUND GUIDED PLEURAL DRAIN PLACEMENT, THIS PROCEDURE WAS PERFORMED BY Danielle STEELE.
--- NOTE | 2017-05-20 13:45 | P.GSCN ---
History of Present Illness Consult date: 05/20/17 Reason for Consult: Right pleural effusion. Requesting physician: Sonny Owusu History of present illness: This a 57-year-old gentleman who is followed by Dr. Lj Trinh on an outpatient basis. The patient has a recent diagnosis of non-Hodgkin's lymphoma. He underwent a right internal jugular Port-A-Cath placement on 2017 although has not started chemotherapy treatment to date. He presented to the emergency department here at [facility] with complaints of worsening shortness of breath over 2-3 day period. He also reports that he had a nagging dry cough. He denies any fevers, nausea, vomiting, diarrhea, chest pain, or diaphoresis. Subsequently a chest x-ray was completed in the emergency department showing a worsening right-sided pleural effusion and for follow-up a CT angiogram of his chest was completed which demonstrated an interval development of complete collapse of the right lung filling the entire right hemithorax. Dr. Maria Elena Jeronimo was consulted for further recommendations on evaluation and treatment for his right pleural effusion. Review of Systems A 14 point review of systems was completed and was negative except as mentioned in the HPI. Past Medical History Past Medical History: Cancer, Hyperlipidemia, Hypertension, Prostate Disorder, Respiratory Disorder (Right pleural effusion.) Additional Past Medical History / Comment(s): Lymphoma recently diagonosed, BPH History of Any Multi-Drug Resistant Organisms: None Reported Additional Past Surgical History / Comment(s): Right IJ Port-A-Cath placement on 05/14/2017, bone marrow aspirate on 05/14/2017, 2013 colonoscopy, anal fissure repair. Ultrasound-guided left neck lymph node biopsy on 05/07/2017 Past Anesthesia/Blood Transfusion Reactions: No Reported Reaction Past Psychological History: No Psychological Hx Reported Smoking Status: Never smoker Past Alcohol Use History: Rare Past Drug Use History: None Reported - Past Family History Father Family Medical History: Prostate Disorder Additional Family Medical History / Comment(s): Father had prostrate cancer. He had a mass in his chest. Mother Family Medical History: Hypertension, Vascular Disorder (Dissecting aortic aneurysm) Additional Family Medical History / Comment(s): Mother of a aortic aneurysm dissection. Sister(s) Family Medical History: Asthma, Diabetes Mellitus, Hypertension Additional Family Medical History / Comment(s): Morbidly obese Medications and Allergies Home Medications Medication Instructions Recorded Confirmed Type Losartan/Hydrochlorothiazide 1 tab PO DAILY 05/07/17 05/19/17 History [Losartan-Hctz 100-25 mg Tab] Metoprolol Succinate [Toprol XL] 50 mg PO DAILY 05/07/17 05/19/17 History Potassium Chloride [Klor-Con 10] 10 meq PO DAILY 05/07/17 05/19/17 History Tamsulosin HCl [Flomax] 0.4 mg PO HS 05/07/17 05/19/17 History amLODIPine [Norvasc] 10 mg PO HS 05/07/17 05/19/17 History Allergies Allergy/AdvReac Type Severity Reaction Status Date / Time No Known Allergies Allergy Verified 05/19/17 10:34 Surgical - Exam Vital Signs Temp Pulse Resp BP Pulse Ox 98.0 F 99 18 158/91 95 05/19/17 10:01 05/19/17 10:01 05/19/17 10:01 05/19/17 10:01 05/19/17 10:01 - General no distress, moderate pain (To his pigtail insertion site, right chest.), obese - Eyes Sclerae nonicteric PERRL, normal ocular movement - ENT normal pinna, normal nares, normal mucosa, no hearing loss, no congestion - Neck Lymphadenopathy present to his left neck and left supraclavicular. No JVD. no bruits (Postop) - Respiratory Lung sounds with few scattered crackles throughout, diminished to his right lobes. Respirations are symmetrical and nonlabored. Oxygen saturation 94% on 2 L nasal cannula. Right chest pigtail catheter in place draining milk colored drainage. - Cardiovascular Regular rhythm and rate. S1 and S2 present, negative for S3, gallop or murmur. No edema present. Peripheral pulses palpable. - Abdomen Abdomen is soft, nontender and nondistended. Active bowel sounds to all 4 abdominal quadrants. Passing flatus. Tolerating oral intake. - Genitourinary Deferred - Rectum Deferred - Integumentary no rash, no growths, no abnormal pigmentation - Neurologic normal coordination, normal sensation - Musculoskeletal normal gait, normal posture - Psychiatric oriented to time, oriented to person, oriented to place, speech is normal, memory intact Results - Labs 05/19/17 10:30 05/19/17 10:30 Microbiology - Last 24 Hours (Table) 05/19/17 10:30 Blood Culture - Preliminary Blood No Growth after 24 hours - Imaging Chest x-ray: report reviewed, image reviewed CT scan - chest: report reviewed, image reviewed Assessment and Plan (1) Pleural effusion, right Current Visit: Yes Status: Acute Code(s): J90 - PLEURAL EFFUSION, NOT ELSEWHERE CLASSIFIED SNOMED Code(s): 69407864 (2) Non Hodgkin's lymphoma Current Visit: Yes Status: Acute Code(s): C85.90 - NON-HODGKIN LYMPHOMA, UNSPECIFIED, UNSPECIFIED SITE SNOMED Code(s): 009908262 (3) Hypertension Current Visit: Yes Status: Acute Code(s): I10 - ESSENTIAL (PRIMARY) HYPERTENSION SNOMED Code(s): 24225856 (4) Hyperlipidemia Current Visit: Yes Status: Acute Code(s): E78.5 - HYPERLIPIDEMIA, UNSPECIFIED SNOMED Code(s): 72759755 (5) Obesity (BMI 30.0-34.9) Current Visit: Yes Status: Acute Code(s): E66.9 - OBESITY, UNSPECIFIED SNOMED Code(s): 589809096 (6) Weight loss, non-intentional Current Visit: Yes Status: Acute Code(s): R63.4 - ABNORMAL WEIGHT LOSS SNOMED Code(s): 903805831 (7) Prostate disorder Current Visit: Yes Status: Acute Code(s): N42.9 - DISORDER OF PROSTATE, UNSPECIFIED SNOMED Code(s): 35459902 Plan: The patient was seen and examined. His chart and diagnostics were reviewed. Dr. Jeronmio has seen and examined the patient. Plan was discussed with Dr. Nathan from pulmonary medicine and recommendations for pigtail placement was agreed. Dr. Jeronimo explained to the patient to us and the benefits of having a pigtail catheter placed. Drainage from the pigtail catheter will be sent for chylomicrons, results pending. Medical management per primary care service recommendations. Sequential compression devices ordered as well as subcu heparin for DVT prophylaxis. Incentive spirometry has been ordered and encouraged to use every hour while awake. Wean oxygen as tolerated. Dietitian has been consulted for possible chylothorax, recommendations on specific diet. Further recommendations to follow as patient progresses in his care. Oncology consult placed. Time with Patient: Greater than 30
[2017-05-20] MEDS: METOPROLOL SUCCINATE (ER) 50 MG TAB.ER.24H PO SCH (13:51)
[2017-05-20] MEDS ORDERED: riTUXimab 800 MG in SODIUM CHLORIDE 0.9% 500 ML IV NR (15:45)
[2017-05-20] MEDS ORDERED: ONDANSETRON 4 MG/2 ML VIAL IVP PRN (16:00)
[2017-05-20] MEDS: KETOROLAC 30 MG/ML 1 ML VIAL IVP SCH ×2 (16:54→23:10)
[2017-05-20] MEDS: HEPARIN SODIUM,PORCINE 5,000 UNIT/ML 1 ML VIAL SQ SCH ×2 (17:00→23:10)
--- NOTE | 2017-05-20 17:02 | P.PN ---
Subjective Progress Note Date: 05/20/17 Progress Note being dictated for Dr. Owusu Interval history:This is a 57-year-old male who presents emergency Department with a recent diagnosis of lymphoma May 05. Patient had a port placed last Friday. Patient states over the last couple of days he's been short of breath and is finding it difficult to even walk from room to room. Patient denies any chest pain or palpitations. Patient states he does not have a fever or chills today but the other day he did have a temp of 100. Patient denies any significant abdominal pain patient denies nausea vomiting diarrhea. Denies any lightheadedness or dizziness. Patient did get a CAT scan which showed A pleural effusion involving the whole entire right hemithorax. A low-grade fever although does not appear to have pneumonic process low-grade fever is probably related to lymphoma itself and patient had a recent right hemithorax port put in. Does have dry cough from pleural effusion. Pulmonology was consulted patient probably will need cardiac thoracic surgery consult as well discussed with the Dr. Hernandez who put in the Port-A-Cath Review of Systems REVIEW OF SYSTEMS: CONSTITUTIONAL: No fever, no malaise, no fatigue. HEENT: No recent visual problems or hearing problems. Denied any sore throat. CARDIOVASCULAR: No chest pain, orthopnea, PND, no palpitations, no syncope. PULMONARY: As mentioned above GASTROINTESTINAL: No diarrhea, no nausea, no vomiting, no abdominal pain. Normoactive bowel sounds. NEUROLOGICAL: No headaches, no weakness, no numbness. HEMATOLOGICAL: Denies any bleeding or petechiae. GENITOURINARY: Denies any burning micturition, frequency, or urgency. MUSCULOSKELETAL/RHEUMATOLOGICAL: Denies any joint pain, swelling, or any muscle pain. ENDOCRINE: Denies any polyuria or polydipsia. The rest of the 14-point review of systems is 05/20/17 mild tachypnea, maintaining O2 sats in the mid 90s on 2 L nasal cannula .scheduled for placement of right pleural pigtail drain today. Beta donell resumed. Afebrile. Objective - Vital Signs Vital signs: Vital Signs Temp 98 F 05/20/17 14:17 Pulse 108 H 05/20/17 14:17 Resp 18 05/20/17 14:17 BP 157/88 05/20/17 14:17 Pulse Ox 95 05/20/17 14:17 Intake & Output 05/19/17 05/20/17 05/20/17 18:59 06:59 18:59 Intake Total 1080 300 Output Total 240 2049 Balance 840 -1750 Weight 99.79 kg 99.79 kg Intake: Oral 1080 300 Output: Chest Tube Drainage 2049 Pleural Catheter Right 2049 Lower Posterior Chest Urine 240 Other: Voiding Method Toilet Toilet Toilet # Voids 1 2 2 - Exam GENERAL: The patient is alert and oriented x3, not in any acute distress. Well developed, well nourished. HEENT: Pupils are round and equally reacting to light. EOMI. No scleral icterus. No conjunctival pallor. Normocephalic, atraumatic. No pharyngeal erythema. No thyromegaly. CARDIOVASCULAR: S1 and S2 present. No murmurs, rubs, or gallops. PULMONARY: Decreased air entry into right lung cid and stony dullness on the right side, fine scattered crackles throughout ABDOMEN: Soft, nontender, nondistended, normoactive bowel sounds. No palpable organomegaly. MUSCULOSKELETAL: No joint swelling or deformity. EXTREMITIES: No cyanosis, clubbing, or pedal edema. NEUROLOGICAL: Gross neurological examination did not reveal any focal deficits. SKIN: No rashes. - Labs CBC & Chem 7: 05/19/17 10:30 05/19/17 10:30 Labs: Microbiology - Last 24 Hours (Table) 05/19/17 10:30 Blood Culture - Preliminary Blood No Growth after 24 hours Assessment and Plan Assessment: - shortness of breath: Secondary to right-sided pleural effusion there is no evidence of pneumonia, large right hemithorax, rapid progression with near opacification of right lung. -Recently diagnosed lymphoma non-Hodgkin's -Cough secondary to right-sided pleural effusion -Hypertension -Elevated d-dimer, chest CTA negative for PE Plan: Continue current medication regime ,monitoring and symptomatic treatment. Scheduled for pigtail catheter drain today with interventional radiology. Oncology consult in place, recommendations pending. Beta donell resumed. GI and DVT prophylaxis in place. Aggressive pulmonary toileting, incentive spirometer ordered, reinforced. The impression and plan of care has been dictated as directed. : I performed a history and examination of this patient, discussed the same with the dictator. I agree with the dictator's note ,documented as a scribe. Any additional findings or plans will be noted.
[2017-05-20] MEDS ORDERED: ACETAMINOPHEN IV (For NPO) 1,000 MG in EMPTY BAG 1 BAG IVPB PRN (17:29)
--- NOTE | 2017-05-20 18:29 | XR ---
EXAMINATION TYPE: XR chest 1V portable DATE OF EXAM: 05/20/2017 COMPARISON: 05/20/2017 HISTORY: Respiratory distress TECHNIQUE: Single frontal view of the chest is obtained. FINDINGS: There is patchy consolidation in the right lung. There is right central venous catheter wi th tip in the right atrium. There is no pneumothorax. There are chest leads. There is no gross heart failure. IMPRESSION: There is patchy consolidation in the right lung. There is significant improved aeration however of the right lung compared to exam earlier today at 12:00 PM which shows complete opacificati on of the right hemithorax. No gross heart failure.
[2017-05-21] MEDS: KETOROLAC 30 MG/ML 1 ML VIAL IVP SCH ×2 (06:35→13:16)
[2017-05-21 06:54] LABS: Basophils # (A) 0.1 k/uL (0-0.2); Basophils % (A) 1 %; Eosinophils # (A) 0.1 k/uL (0-0.7); Eosinophils % (A) 2 %; HCT 42.9 % (39.0-53.0); HGB 13.4 gm/dL (13.0-17.5); Lymphocytes # (A) 0.3 k/uL (1.0-4.8); Lymphocytes % (A) 3 %; MCH 26.1 pg (25.0-35.0); MCHC 31.2 g/dL (31.0-37.0); MCV 83.5 fL (80.0-100.0); Mean Platelet Volume 8.2; Monocytes # (A) 0.7 k/uL (0-1.0); Monocytes % (A) 9 %; Neutrophils # (A) 6.7 k/uL (1.3-7.7); Neutrophils % (A) 84 %; Platelet Count 249 k/uL (150-450); RBC 5.14 m/uL (4.30-5.90); RDW 15.3 % (11.5-15.5)
[2017-05-21 07:06] LABS: Potassium 4.4 mmol/L (3.5-5.1)
[2017-05-21 08:08] LABS: Phosphorus 5.3 mg/dL (2.5-4.5)
--- NOTE | 2017-05-21 08:17 | ECHOF ---
Referral Reason:assess LV function pre chemotherapy MEASUREMENTS -------- HEIGHT: 172.7 cm WEIGHT: 99.8 kg BP: 157/88 RVIDd: 2.8 cm (< 3.3) IVSd: 1.5 cm (0.6 - 1.1) LVIDd: 3.3 cm (3.9 - 5.3) LVPWd: 1.5 cm (0.6 - 1.1) IVSs: 1.9 cm LVIDs: 1.8 cm LVPWs: 2.1 cm Ao Diam: 2.7 cm (2.0 - 3.7) AV Cusp: 2.0 cm (1.5 - 2.6) LA Diam: 3.3 cm (2.7 - 3.8) MV E Juanjose: 0.89 m/s MV DecT: 151 ms MV A Juanjose: 0.99 m/s MV E/A Ratio: 0.90 RAP: 5.00 mmHg RVSP: 12.96 mmHg FINDINGS -------- Resting tachycardia (HR>100bpm). This was a technically difficult study with suboptimal views. The left ventricular size is normal. There is moderate concentric left ventricular hypertrophy. O verall left ventricular systolic function is normal with, an EF between 60 - 65 %. The right ventricle is normal in size and function. The left atrium is normal in size. The right atrium is normal in size. 1.5mg of Definity was utilized for enhancement of images The aortic valve was not well visualized. There is trace mitral regurgitation. Trace tricuspid regurgitation present. The right ventricular systolic pressure, as measured by Dopp ler, is 12.96mmHg. The pulmonic valve was not well visualized. The aortic root size is normal. There is a trivial pericardial effusion present. CONCLUSIONS -------- 1. Resting tachycardia (HR>100bpm). 2. This was a technically difficult study with suboptimal views. 3. The left ventricular size is normal. 4. There is moderate concentric left ventricular hypertrophy. 5. Overall left ventricular systolic function is normal with, an EF between 60 - 65 %. 6. The right ventricle is normal in size and function. 7. The left atrium is normal in size. 8. The right atrium is normal in size. 9. 1.5mg of Definity was utilized for enhancement of images 10. The aortic valve was not well visualized. 11. There is trace mitral regurgitation. 12. Trace tricuspid regurgitation present. 13. The right ventricular systolic pressure, as measured by Doppler, is 12.96mmHg. 14. The pulmonic valve was not well visualized. 15. The aortic root size is normal. 16. There is a trivial pericardial effusion present. MAINTENANCE DIRECTOR: Makayla Polanco RDCS
--- NOTE | 2017-05-21 08:34 | XR ---
EXAMINATION TYPE: XR chest 1V portable DATE OF EXAM: 05/21/2017 COMPARISON: 05/20/2018 HISTORY: Right pleural effusion TECHNIQUE: Single frontal view of the chest is obtained. FINDINGS: Small right pleural effusion and fluid in the minor fissure with central venous congestion and interstitial edema, mild, unchanged from the prior are all redemonstrated an mildly worsened in the interim. No pneumothorax. Cardiomediastinal silhouette is partially visualized but stable from th e prior. Right-sided Mediport terminates in the cavoatrial junction. IMPRESSION: Minimal worsening of the small right pleural effusion, right basilar airspace disease (l ikely atelectasis) and interfissural fluid in comparison to the prior with persistent mild pulmonary vascular congestion.
[2017-05-21] MEDS: HEPARIN SODIUM,PORCINE 5,000 UNIT/ML 1 ML VIAL SQ SCH ×3 (09:10→23:35)
[2017-05-21] MEDS: METOPROLOL SUCCINATE (ER) 50 MG TAB.ER.24H PO SCH (09:10)
[2017-05-21] MEDS: predniSONE 50 MG TAB PO SCH (09:26)
[2017-05-21] MEDS ORDERED: RASBURICASE 6 MG in SODIUM CHLORIDE 0.9% 46 ML IV ONE (11:00)
[2017-05-21] MEDS ORDERED: FAMOTIDINE 20 MG/2 ML VIAL IV ONE (11:00)
[2017-05-21] MEDS ORDERED: methylPREDNISolone SOD SUCCI 125 MG/2 ML VIAL IV ONE (11:00)
[2017-05-21] MEDS ORDERED: ONDANSETRON 16 MG in SODIUM CHLORIDE 0.9% 50 ML IVPB ONE (11:00)
[2017-05-21] MEDS ORDERED: diphenhydrAMINE 50 MG/ML 1 ML VIAL IVP ONE (11:00)
[2017-05-21] MEDS ORDERED: FOSAPREPITANT DIMEGLUMINE 150 MG in SODIUM CHLORIDE 0.9% 145 ML IV ONE (11:00)
--- NOTE | 2017-05-21 11:13 | P.PN ---
Progress Note - Text Progress Note Date: 05/21/17 Patient still complaining of a cough. Shortness of breath is improved. Beginning chemotherapy today. Studies from the pleural fluid still pending.
[2017-05-21] MEDS: SODIUM CHLORIDE 0.9% 1,000 ML IV SCH (11:29)
[2017-05-21] MEDS: MULTIVITAMINS, THERA 1 EACH TAB PO SCH (11:29)
[2017-05-21] MEDS ORDERED: SODIUM CHLORIDE 0.9% IV ONE (12:00)
[2017-05-21] MEDS ORDERED: CYCLOPHOSPHAMIDE IV ONE (12:00)
[2017-05-21] MEDS ORDERED: DOXORUBICIN HCL IV ONE (12:00)
[2017-05-21] MEDS ORDERED: riTUXimab 800 MG in SODIUM CHLORIDE 0.9% 500 ML IV ONE (12:00)
[2017-05-21] MEDS ORDERED: VANCOMYCIN IV PER PHARMACY 1 EACH MISC MISCELLANE PRN (13:24)
[2017-05-21] MEDS ORDERED: VANCOMYCIN 2,000 MG in SODIUM CHLORIDE 0.9% 500 ML IVPB ONE (14:00)
--- NOTE | 2017-05-21 14:39 | P.PN ---
Subjective Progress Note Date: 05/21/17 Principal diagnosis: Large right chylothorax, status post right pleural pigtail chest tube insertion. John is a 57-year-old white male patient that follows with Dr. Bonilla for his recently diagnosed Non-Hodgkins lymphoma, that was discovered during evaluation of patient's loss of appetite, weight loss, abdominal discomfort, and full sensation with the CT of the abdomen and pelvis on 04/23/2017. This CT showed lower paraesophageal, upper abdominal, mesenteric and retroperitoneal lymphadenopathy, splenomegaly, and focal wall thickening of the duodenum. Patient had a ultrasound-guided core biopsy of the left neck lymphadenopathy on 05/07/2017. The results of the biopsy were positive for diffuse large B-cell lymphoma, germinal center type. Staging PET scan on 05/10/2017 shows lymphoma or neoplastic involvement above and below diaphragm, new moderate to large size right pleural effusion, and persistent suspicious lesion anterior to distal third portion of duodenum that could reflect intra-abdominal abscess. Patient presented to the emergency department on 05/19/2017 with complaints of increased shortness of breath, slight cough, severe limitation of activity related to his dyspnea, and orthopnea over the last couple of days. He denied any chest pain, fever or chills. Denied any chest wall tenderness or hemoptysis. He had a Port-a-Cath placed on 05/14/[address] Velazquez in his right upper chest. Chest x-ray post line placement showed no evidence of pneumothorax, but there was evidence of developing right-sided pleural effusion. Chest x-ray from 05/19/2017 taken in the ED, showed worsening right- sided pleural effusion with complete opacification consistent with right hemithorax. Chest CTA on 05/19/2017 showed no evidence for pulmonary embolism, but interval development of complete collapse of the right lung with filling of the entire right hemithorax with fluid. Soft tissue mass adjacent to the mid to distal esophagus. chest ultrasound from 05/19/2017 showed a right pleural effusion fluid pocket of 13.3 cm. Clinically patient continued on 2 L per nasal cannula with O2 sat between 94-97%. He is complaining of orthopnea, dyspnea. Cardiothoracic surgery was consulted and recommended placement of a pigtail catheter in the right pleural in view of rapid accumulation of fluid from 2017 to 05/19/2017 as evidenced on the radiographic studies, and in view of patient's underlying malignancy the likelihood of recurrency of the pleural fluid is high. Interventional radiology was consulted for placement of right pleural pigtail chest tube today. This was discussed with the patient, was in agreement with the plan. On 05/21/2017 patient is status post right pleural pigtail catheter insertion, with drainage of large amount (2050 ML over the last 24 hours) of chyle, milky white yellow drainage, consistent with chylothorax. Patient was started on IV chemotherapy today, Cytoxan, Adriamycin, Emend, Elitek, Rituxan, Vincristine and high dose prednisone 100 mg daily for 5 days. Today he reports improvement in terms of dyspnea, currently on 4 L per nasal cannula with O2 sat at 96%. Did have a fever spike last night, temp of 102.6 at 1725 on 05/20/2017. This was also accompanied by increased shortness of breath, which has improved. Infectious disease was consulted, blood cultures were collected and sent, sputum culture was ordered, however patient is not producing any sputum at this time. Influenza screen was ordered. Patient was started on a combination of cefepime and vancomycin for empiric antibiotic coverage. Patient was placed on the fat-free diet. This morning he is doing better, his temp is normal at 97.0 F, he is hemodynamically stable, denies any shortness of breath at the moment, his chest x-ray from this morning shows minimal worsening of the small right pleural effusion, right basilar airspace disease, likely atelectasis and interstitial fluid in comparison to the prior with persistent mild pulmonary vascular congestion. Objective - Vital Signs Vital signs: Vital Signs Temp 97.0 F L 05/21/17 12:50 Pulse 79 05/21/17 13:50 Resp 20 05/21/17 13:50 BP 114/63 05/21/17 13:50 Pulse Ox 96 05/21/17 13:50 Intake & Output 05/20/17 05/21/17 05/21/17 18:59 06:59 18:59 Intake Total 300 540 78.333 Output Total 2049 Balance -1750 540 78.333 Weight 99.79 kg 99.819 kg Intake: Intake, IV Titration 78.333 Amount riTUXimab 800 mg In 78.333 Sodium Chloride 0.9% 500 ml @ Titrate IV .Q0M ONE Rx#:[id number] Oral 300 540 Output: Chest Tube Drainage 205 Pleural Catheter Right 2049 Lower Posterior Chest Other: Voiding Method Toilet Toilet # Voids 2 2 - Exam GENERAL EXAM: Alert, pleasant, 57-year-old white male, in no acute distress HEAD: Normocephalic/atraumatic. EYES: Normal reaction of pupils, equal size. Conjunctiva pink, sclera white. NOSE: Clear with pink turbinates. THROAT: No erythema or exudates. NECK: No masses, no JVD, no thyroid enlargement, no adenopathy. CHEST: No chest wall deformity. Symmetrical expansion. Right posterior pleural pigtail catheter connected to a drainage bag with milky whitish yellow output LUNGS: diminished lung sounds over right lung, bibasilar crackles at the left base. CVS: Regular rate and rhythm, normal S1 and S2, no gallops, no murmurs, no rubs ABDOMEN: Soft, nontender. No hepatosplenomegaly, normal bowel sounds, no guarding or rigidity. EXTREMITIES: No clubbing, no edema, no cyanosis, 2+ pulses and upper and lower extremities. MUSCULOSKELETAL: Muscle strength and tone normal. SPINE: No scoliosis or deformity SKIN: No rashes CENTRAL NERVOUS SYSTEM: Alert and oriented -3. No focal deficits, tone is normal in all 4 extremities. PSYCHIATRIC: Alert and oriented -3. Appropriate affect. Intact judgment and insight. - Labs CBC & Chem 7: 05/21/17 06:31 05/21/17 06:31 Labs: Abnormal Lab Results - Last 24 Hours (Table) 05/21/17 05/21/17 05/21/17 Range/Units 06:31 06:31 06:31 Lymphocytes # 0.3 L (1.0-4.8) k/uL Chloride 97 L (98-107) mmol/L Carbon Dioxide 31 H (22-30) mmol/L BUN 34 H (9-20) mg/dL Creatinine 1.72 H (0.66-1.25) mg/dL Glucose 102 H (74-99) mg/dL Phosphorus 5.3 H (2.5-4.5) mg/dL Microbiology - Last 24 Hours (Table) 05/19/17 10:30 Blood Culture - Preliminary Blood No Growth after 48 hours Assessment and Plan Plan: Assessment: #1. Large right chylothorax, rapid progression from 05/14/2017 to 05/19/2017, on presentation chest x-ray on 05/19/2017 shows near complete opacification of the right lung due to the pleural effusion, with secondary dyspnea. Patient is status post right pigtail chest tube placement on 05/20/2017 with drainage of a large (over 2 L in the 24 hours) milky white, yellowish pleural fluid, consistent with chyle #2. Non-Hodgkin's lymphoma, recent diagnosis. Patient has been initiated on chemotherapy per medical oncology today with a combination of Cytoxan, Adriamycin,Emend, Elitek, Rituxan and high dose steroids with prednisone 100 mg daily 5 days. #3. Febrile illness, rule out sepsis, patient was empirically started on cefepime and vancomycin, blood cultures were obtained and sent, will obtain sputum specimen, if able, patient is not producing any sputum. Influenza screen was ordered. #4. Acute kidney injury, unspecified. Possibly related to ATN, vancomycin, or chemotherapy #5. Elevated d-dimer, of 4.41, CTA chest negative for any evidence of pulmonary embolism. #6. Placement of Port-a-Cath in the right upper chest on 05/14/2017, with no complications #7. Essential hypertension Plan: Patient reports some improvement in terms of his dyspnea, did have a febrile episode last night, rule out sepsis. Lab work shows worsening renal function, possibly related to ATN, or medication induced. Blood cultures have been collected and sent, ID consult was placed. Patient is receiving IV hydration with 0.9 at 75 ML per hour. Continue monitoring renal function, electrolytes, vital signs. I performed a history & physical examination of the patient and discussed their management with my nurse practitioner, Nilsa Paredes. I reviewed the nurse practitioner's note and agree with the documented findings and plan of care. Lung sounds are diminished over right lung, a few crackles on the left. The findings and the impression was discussed with the patient. I attest to the documentation by the nurse practitioner. Time with Patient: Less than 30
[2017-05-21] MEDS: CEFEPIME 2 GM in SODIUM CHLORIDE 0.9% 50 ML IVPB SCH ×2 (15:25→23:35)
--- NOTE | 2017-05-21 16:46 | P.PN ---
Subjective Progress Note Date: 05/21/17 Principal diagnosis: Non-Hodgkin's lymphoma, large right chylothorax, hypertension, hyperlipidemia, obesity with a BMI of 33.5, prostate disorder, not intentional weight loss. This a 57-year-old gentleman who is followed by . this is a 57-year-old gentleman who is followed by Dr. Lj Trinh on an outpatient basis. Patient has a recent diagnosis of non-Hodgkin's lymphoma. On 05/14/2017 he underwent a placement of a right internal jugular Port-A-Cath in preparation for chemotherapy treatment. He presented to the emergency department here at [facility] on 05/20/2017 with complaints of progressive shortness of breath and a nagging dry cough. Subsequently he underwent a chest x-ray and CT angiogram of his chest which demonstrated interval development of complete collapse of the right lung filling the entire right hemithorax. A pigtail catheter was placed yesterday by interventional radiology and the pigtail catheter drained white yellowish drainage consistent with chylothorax. Chylomicrons and triglyceride levels of the pleural fluid are pending. The patient is in bed with his head elevated in no acute distress. He reports that he is breathing is much improved in the last 24 hours. He is currently on room air with oxygen saturation saturations of 96%. He rates his pain 0 out of 10 on the pain scale. Objective - Vital Signs Vital signs: Vital Signs Temp 98 F 05/21/17 15:38 Pulse 85 05/21/17 15:38 Resp 20 05/21/17 15:38 BP 124/68 05/21/17 15:38 Pulse Ox 96 05/21/17 15:38 Intake & Output 05/20/17 05/21/17 05/21/17 18:59 06:59 18:59 Intake Total 300 540 448.333 Output Total 2049 Balance -1749 540 448.333 Weight 99.79 kg 99.819 kg Intake: Intake, IV Titration 448.333 Amount Fosaprepitant Dimeglumine 145 150 mg In Sodium Chloride 0.9% 145 ml @ 300 mls/hr IV ONCE ONE Rx #:[id number] Ondansetron 16 mg In 50 Sodium Chloride 0.9% 50 ml @ 100 mls/hr IVPB ONCE ONE Rx#:[id number] riTUXimab 800 mg In 253.333 Sodium Chloride 0.9% 500 ml @ Titrate IV .Q0M ONE Rx#:[id number] Oral 300 540 Output: Chest Tube Drainage 2049 Pleural Catheter Right 2049 Lower Posterior Chest Other: Voiding Method Toilet Toilet # Voids 2 2 - Constitutional General appearance: Present: cooperative, no acute distress, obese - Neck Details: No JVD, enlarged lymph nodes to his left neck and left supraclavicular nodes. - Respiratory Details: Lung sounds are diminished to his right chest and absent to his right base, essentially clear to his left chest. Respirations are symmetrical and nonlabored oxygen saturation saturations are 96% on room air. Pigtail catheter to his right chest secured and intact and draining milky yellowish colored drainage. - Cardiovascular Details: Regular rhythm and rate. S1 and S2 present, negative for S3, gallop or murmur. No edema present. Peripheral pulses palpable. - Gastrointestinal Gastrointestinal Comment(s): Abdomen is soft, nontender and nondistended. No organomegaly. Tolerating oral intake. - Integumentary Integumentary Comment(s): Skin is clean dry and intact. No clubbing or cyanosis. - Neurologic Neurologic: Present: CNII-XII intact - Musculoskeletal Musculoskeletal: Present: gait normal, strength equal bilaterally - Psychiatric Psychiatric: Present: A&O x's 3, appropriate affect, intact judgment & insight - Allied health notes Allied health notes reviewed: nursing - Labs CBC & Chem 7: 05/21/17 06:31 05/21/17 06:31 Labs: Abnormal Lab Results - Last 24 Hours (Table) 05/21/17 05/21/17 05/21/17 Range/Units 06:31 06:31 06:31 Lymphocytes # 0.3 L (1.0-4.8) k/uL Chloride 97 L (98-107) mmol/L Carbon Dioxide 31 H (22-30) mmol/L BUN 34 H (9-20) mg/dL Creatinine 1.72 H (0.66-1.25) mg/dL Glucose 102 H (74-99) mg/dL Phosphorus 5.3 H (2.5-4.5) mg/dL Microbiology - Last 24 Hours (Table) 05/19/17 10:30 Blood Culture - Preliminary Blood No Growth after 48 hours - Imaging and Cardiology Chest x-ray: report reviewed, image reviewed Assessment and Plan (1) Pleural effusion, right Current Visit: Yes Status: Acute Code(s): J90 - PLEURAL EFFUSION, NOT ELSEWHERE CLASSIFIED SNOMED Code(s): 18593794 (2) Non Hodgkin's lymphoma Current Visit: Yes Status: Acute Code(s): C85.90 - NON-HODGKIN LYMPHOMA, UNSPECIFIED, UNSPECIFIED SITE SNOMED Code(s): 153379915 (3) Hypertension Current Visit: Yes Status: Acute Code(s): I10 - ESSENTIAL (PRIMARY) HYPERTENSION SNOMED Code(s): 80900123 (4) Hyperlipidemia Current Visit: Yes Status: Acute Code(s): E78.5 - HYPERLIPIDEMIA, UNSPECIFIED SNOMED Code(s): 41888280 (5) Obesity (BMI 30.0-34.9) Current Visit: Yes Status: Acute Code(s): E66.9 - OBESITY, UNSPECIFIED SNOMED Code(s): 103658684 (6) Weight loss, non-intentional Current Visit: Yes Status: Acute Code(s): R63.4 - ABNORMAL WEIGHT LOSS SNOMED Code(s): 921795536 (7) Prostate disorder Current Visit: Yes Status: Acute Code(s): N42.9 - DISORDER OF PROSTATE, UNSPECIFIED SNOMED Code(s): 49748550 Plan: 1. Send pleural fluid for triglyceride level. 2. Non-Hodgkin lymphoma management per oncology. 3. Pulmonary management per Dr. Nathan's recommendations. 4. Increase activity as tolerated. 5. Leave pigtail catheter unclamped today, we will repeat chest x-ray in a.m. 6. More recommendations to follow as patient progresses or care. Time with Patient: Greater than 30
--- NOTE | 2017-05-21 17:01 | P.PN ---
Subjective Progress Note Date: 05/21/17 Progress Note being dictated for Dr. Owusu Interval history:This is a 57-year-old male who presents emergency Department with a recent diagnosis of lymphoma May 05. Patient had a port placed last Friday. Patient states over the last couple of days he's been short of breath and is finding it difficult to even walk from room to room. Patient denies any chest pain or palpitations. Patient states he does not have a fever or chills today but the other day he did have a temp of 100. Patient denies any significant abdominal pain patient denies nausea vomiting diarrhea. Denies any lightheadedness or dizziness. Patient did get a CAT scan which showed A pleural effusion involving the whole entire right hemithorax. A low-grade fever although does not appear to have pneumonic process low-grade fever is probably related to lymphoma itself and patient had a recent right hemithorax port put in. Does have dry cough from pleural effusion. Pulmonology was consulted patient probably will need cardiac thoracic surgery consult as well discussed with the Dr. Hernandez who put in the Port-A-Cath Review of Systems REVIEW OF SYSTEMS: CONSTITUTIONAL: No fever, no malaise, no fatigue. HEENT: No recent visual problems or hearing problems. Denied any sore throat. CARDIOVASCULAR: No chest pain, orthopnea, PND, no palpitations, no syncope. PULMONARY: As mentioned above GASTROINTESTINAL: No diarrhea, no nausea, no vomiting, no abdominal pain. Normoactive bowel sounds. NEUROLOGICAL: No headaches, no weakness, no numbness. HEMATOLOGICAL: Denies any bleeding or petechiae. GENITOURINARY: Denies any burning micturition, frequency, or urgency. MUSCULOSKELETAL/RHEUMATOLOGICAL: Denies any joint pain, swelling, or any muscle pain. ENDOCRINE: Denies any polyuria or polydipsia. The rest of the 14-point review of systems is 05/20/17 mild tachypnea, maintaining O2 sats in the mid 90s on 2 L nasal cannula .scheduled for placement of right pleural pigtail drain today. Beta donell resumed. Afebrile. 05/21/2017 status post right pleural pigtail placement with large-volume drainage at greater than 2 L/24h. Drainage of whitish yellow, chylothorax suspected. States breathing and pain improved and high doses of steroids. Nonproductive cough. Earlier this morning patient was on 10 L which has been weaned down to 5 L, maintaining O2 sats in the high 90s. Chest x-ray reporting minimal worsening of small right pleural effusion, right basilar airspace disease/atelectasis and interfissural fluid fluid, persistent mild pulmonary vascular congestion. Echo suboptimal, reporting moderate concentric left ventricular hypertrophy, normal LV function, EF 60-65%. Chemotherapy initiated today. T-max 102.6,WBC WNL. blood cultures ordered, sputum culture ordered. Infectious disease consulted. Worsening renal function. Objective - Vital Signs Vital signs: Vital Signs Temp 98 F 05/21/17 15:38 Pulse 85 05/21/17 15:38 Resp 20 05/21/17 15:38 BP 124/68 05/21/17 15:38 Pulse Ox 96 05/21/17 15:38 Intake & Output 05/20/17 05/21/17 05/21/17 18:59 06:59 18:59 Intake Total 300 540 448.333 Output Total 2049 Balance -1750 540 448.333 Weight 99.79 kg 99.819 kg Intake: Intake, IV Titration 448.333 Amount Fosaprepitant Dimeglumine 145 150 mg In Sodium Chloride 0.9% 145 ml @ 300 mls/hr IV ONCE ONE Rx #:[id number] Ondansetron 16 mg In 50 Sodium Chloride 0.9% 50 ml @ 100 mls/hr IVPB ONCE ONE Rx#:[id number] riTUXimab 800 mg In 253.333 Sodium Chloride 0.9% 500 ml @ Titrate IV .Q0M ONE Rx#:[id number] Oral 300 540 Output: Chest Tube Drainage 2049 Pleural Catheter Right 2049 Lower Posterior Chest Other: Voiding Method Toilet Toilet # Voids 2 2 - Exam GENERAL: The patient is alert and oriented x3, sitting up at bedside, no acute distress. HEENT: Pupils are round and equally reacting to light. EOMI. No scleral icterus. No conjunctival pallor. Normocephalic, atraumatic. No pharyngeal erythema. No thyromegaly. CARDIOVASCULAR: S1 and S2 present. No murmurs, rubs, or gallops. PULMONARY: Right pigtail catheter present- whitish -yellow drainage. Diminished right lung, left basilar crackles ABDOMEN: Soft, nontender, nondistended, normoactive bowel sounds. No palpable organomegaly. MUSCULOSKELETAL: No joint swelling or deformity. EXTREMITIES: No cyanosis, clubbing, or pedal edema. NEUROLOGICAL: Gross neurological examination did not reveal any focal deficits. SKIN: No rashes. - Labs CBC & Chem 7: 05/21/17 06:31 05/21/17 06:31 Labs: Abnormal Lab Results - Last 24 Hours (Table) 05/21/17 05/21/17 05/21/17 Range/Units 06:31 06:31 06:31 Lymphocytes # 0.3 L (1.0-4.8) k/uL Chloride 97 L (98-107) mmol/L Carbon Dioxide 31 H (22-30) mmol/L BUN 34 H (9-20) mg/dL Creatinine 1.72 H (0.66-1.25) mg/dL Glucose 102 H (74-99) mg/dL Phosphorus 5.3 H (2.5-4.5) mg/dL Microbiology - Last 24 Hours (Table) 05/19/17 10:30 Blood Culture - Preliminary Blood No Growth after 48 hours Assessment and Plan Assessment: - shortness of breath: Secondary to right-sided pleural effusion,Chylothorax. 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 Status post right pigtail chest tube placement with Large volume drainage. -Recently diagnosed lymphoma non-Hodgkin's -Hypertension -Elevated d-dimer, chest CTA negative for PE -Fevers, possible sepsis -Acute renal failure, possibly med induced, possibly ATN Plan: Continue current medication regime ,monitoring and symptomatic treatment. Maintain IV fluid hydration, close monitoring of renal function, lytes with repeat labs ordered for a.m. Infectious disease consulted. Antibiotics as per infectious disease. Close monitoring Blood cultures. Increase ambulation as tolerated. Follow closely with multiple consults. The impression and plan of care has been dictated as directed. : I performed a history and examination of this patient, discussed the same with the dictator. I agree with the dictator's note ,documented as a scribe. Any additional findings or plans will be noted.
--- NOTE | 2017-05-21 19:46 | P.CONS ---
History of Present Illness - Reason for Consult Consult date: 05/21/17 DLBCL Requesting physician: Demian Gil - Chief Complaint SOB/MERLENE - History of Present Illness Dr. Morrow presented to his PCP Dr. Trinh in Apr 2017 with progressive, diffuse abdominal pain, had CT AP at [facility] on 04/23/17 that revealed diffuse lymphadenopathy, largest right mid abdomen where mesenteric conglomerate mass measuring 12X12 cm was identified, bx of left supraclavicular lymph node suggested lymphoma, it was sent to [facility] for review. Patient had B symptoms of severe night sweats and 20 pound weight loss in 1 month. Pt had port placed 05/14, bone marrow was done at the same time. On the he contacted the office with complaints of progressive shortness of breath. Patient was directed to go to the ER. On admit pt has been febrile, CT chest showed right complete right lung collapse, pleural space filled with fluid. Pt had drainage and pigtail insertion, he is being treated for chylothorax, his breathing is much better. He has been started on his chemo to begin treatment of the underlying cause. Pt has no other physical c/o on a 10 point ROS. Review of Systems 10 point ROS as stated in HPI Past Medical History Past Medical History: Cancer, Hyperlipidemia, Hypertension, Prostate Disorder, Respiratory Disorder (Right pleural effusion.) Additional Past Medical History / Comment(s): Lymphoma recently diagonosed, BPH History of Any Multi-Drug Resistant Organisms: None Reported Additional Past Surgical History / Comment(s): Right IJ Port-A-Cath placement on 05/14/2017, bone marrow aspirate on 05/14/2017, 2012 colonoscopy, anal fissure repair. Ultrasound-guided left neck lymph node biopsy on 05/07/2017 Past Anesthesia/Blood Transfusion Reactions: No Reported Reaction Past Psychological History: No Psychological Hx Reported Smoking Status: Never smoker Past Alcohol Use History: Rare Past Drug Use History: None Reported - Past Family History Father Family Medical History: Prostate Disorder Additional Family Medical History / Comment(s): Father had prostrate cancer. He had a mass in his chest. Mother Family Medical History: Hypertension, Vascular Disorder (Dissecting aortic aneurysm) Additional Family Medical History / Comment(s): Mother of a aortic aneurysm dissection. Sister(s) Family Medical History: Asthma, Diabetes Mellitus, Hypertension Additional Family Medical History / Comment(s): Morbidly obese Medications and Allergies Home Medications Medication Instructions Recorded Confirmed Type Losartan/Hydrochlorothiazide 1 tab PO DAILY 05/07/17 05/19/17 History [Losartan-Hctz 100-25 mg Tab] Metoprolol Succinate [Toprol XL] 50 mg PO DAILY 05/07/17 05/19/17 History Potassium Chloride [Klor-Con 10] 10 meq PO DAILY 05/07/17 05/19/17 History Tamsulosin HCl [Flomax] 0.4 mg PO HS 05/07/17 05/19/17 History amLODIPine [Norvasc] 10 mg PO HS 05/07/17 05/19/17 History Allergies Allergy/AdvReac Type Severity Reaction Status Date / Time No Known Allergies Allergy Verified 05/19/17 10:34 Physical Exam Vitals: Vital Signs Temp Pulse Pulse Resp BP Pulse Ox 05/21/17 15:50 66 113/65 93 L 05/21/17 15:38 98 F 85 20 124/68 96 05/21/17 15:35 75 116/66 91 L 05/21/17 15:20 73 122/64 92 L 05/21/17 15:05 81 123/71 96 05/21/17 14:50 85 20 124/68 97 05/21/17 14:35 78 20 117/67 96 05/21/17 14:20 78 124/63 96 05/21/17 14:05 89 20 116/65 96 05/21/17 13:50 79 20 114/63 96 05/21/17 13:35 82 20 118/65 96 05/21/17 13:20 77 20 121/69 96 05/21/17 13:05 87 20 116/78 98 05/21/17 12:50 97.0 F L 74 18 107/66 97 05/21/17 07:58 98.8 F 78 20 128/78 100 05/20/17 23:20 98.8 F 110 H 17 131/77 95 05/20/17 20:09 99.6 F Intake and Output 05/21/17 05/21/17 05/21/17 06:59 14:59 22:59 Intake Total 540 448.333 Output Total 995 Balance 540 448.333 -995 Intake: Intake, IV Titration 448.333 Amount Fosaprepitant Dimeglumine 145 150 mg In Sodium Chloride 0.9% 145 ml @ 300 mls/hr IV ONCE ONE Rx #:[id number] Ondansetron 16 mg In 50 Sodium Chloride 0.9% 50 ml @ 100 mls/hr IVPB ONCE ONE Rx#:[id number] riTUXimab 800 mg In 253.333 Sodium Chloride 0.9% 500 ml @ Titrate IV .Q0M ONE Rx#:[id number] Oral 540 Output: Chest Tube Drainage 995 Pleural Catheter Right 995 Lower Posterior Chest Other: Voiding Method Toilet # Voids 2 Weight 99.819 kg - Constitutional General appearance: average body habitus, cooperative, no acute distress - EENT Eyes: anicteric sclerae, EOMI, normal appearance ENT: normal oropharynx - Neck Neck: lymphadenopathy - Respiratory Respiratory: bilateral: CTA - Cardiovascular Rhythm: regular Heart sounds: normal: S1, S2 Abnormal Heart Sounds: systolic murmur, diastolic murmur, rub, S3 Gallop, S4 Gallop, click, other leg Peripheral Edema: bilateral: Trace - Gastrointestinal General gastrointestinal: no absent bowel sounds, no decreased bowel sounds, no distended, no hepatomegaly, no hyperactive bowel sounds, normal bowel sounds, no organomegaly, no rigid, no scaphoid, soft, no splenomegaly, no tenderness, no umbilical hernia, no ventral hernia - Integumentary Integumentary: normal - Neurologic Neurologic: CNII-XII intact - Musculoskeletal Musculoskeletal: strength equal bilaterally - Psychiatric Psychiatric: A&O x's 3, appropriate affect, intact judgment & insight Results CBC & Chem 7: 05/21/17 06:31 05/21/17 06:31 Labs: Abnormal Lab Results - Last 24 Hours (Table) 05/21/17 05/21/17 05/21/17 Range/Units 06:31 06:31 06:31 Lymphocytes # 0.3 L (1.0-4.8) k/uL Chloride 97 L (98-107) mmol/L Carbon Dioxide 31 H (22-30) mmol/L BUN 34 H (9-20) mg/dL Creatinine 1.72 H (0.66-1.25) mg/dL Glucose 102 H (74-99) mg/dL Phosphorus 5.3 H (2.5-4.5) mg/dL Microbiology - Last 24 Hours (Table) 05/19/17 10:30 Blood Culture - Preliminary Blood No Growth after 48 hours Chest x-ray: report reviewed CT scan - chest: report reviewed Assessment and Plan (1) Chylothorax on right Narrative/Plan: Patient has had pigtail placement in the right pleural space, draining milky fluid, this fluid has been sent for analysis to confirm chylothorax. Dr. Raymond did discuss the case with thoracic surgeon. Diet will be modified, dietitian was consulted. Oxygen for comfort Current Visit: Yes Status: Acute Priority: High Code(s): I89.8 - OTH NONINFECTIVE DISORDERS OF LYMPHATIC VESSELS AND NODES SNOMED Code(s): 69920192 (2) Non Hodgkin's lymphoma Narrative/Plan: R-CHOP started today. Orders reviewed, supportive meds ordered, labs to monitor for tumor lysis daily. Current Visit: Yes Status: Acute Priority: High Code(s): C85.90 - NON- HODGKIN LYMPHOMA, UNSPECIFIED, UNSPECIFIED SITE SNOMED Code(s): 797859080
[2017-05-22] MEDS: SODIUM CHLORIDE 0.9% 1,000 ML IV SCH ×3 (03:31→13:10)
--- NOTE | 2017-05-22 05:28 | CONS ---
CONSULTATION DATE OF SERVICE: 05/21/2017. REASON FOR CONSULTATION: Fever. HISTORY OF PRESENT ILLNESS: The patient is a 57 -year-old male who was recently evaluated in outpatient setting when the patient presented with abdominal pain. He did have a CT of the abdomen and pelvis which shows lymphadenopathy and subsequent biopsy of the cervical lymph node did shows non-Hodgkin lymphoma. The patient did have a jugular Port- A-Cath placed at about on 05/14/2017 for preparation for chemotherapy. The patient presented to the ER at [facility] on May 19 with the chief complaints of increasing shortness of breath. His breathing has been getting worse with for than a week now before he presented to hospital and started before the Port-A-Cath was placed and the patient did have a chest x-ray 05/14/2017 after placement of the catheter, which did show the right-sided central venous line is distant overlying the SVC. No evidence of pneumothorax, right basilar infiltrate atelectasis. However, a chest x-ray done on the the when he presented with increasing shortness of breath that shows worsening right-sided pleural effusion with complete whiteout of the right hemithorax. CT confirmed that and subsequently the patient did have an ultrasound guided pigtail catheter placement. Unfortunately, I do not see if the fluid was sent for any specific testing. The patient has been afebrile on admission did spike a fever of 100.9 and subsequently a fever 102.6 degrees Fahrenheit. I was asked to see the patient this morning for further recommendation regarding high-grade fever. He did have a normal white count of 15 as of this morning. The patient did mention that his breathing has much improved. He did have slight cough for the last 1 week mild intensity, but not bringing up any sputum. No chest pain. No nausea, no vomiting. No worsening abdominal pain. No diarrhea. No burning or frequency of urine. REVIEW OF SYSTEMS: Constitutional: Positive for weakness and fever. Eyes no complaint. ENT no complaint. Respiratory as per HPI. Cardiovascular: No complaint. Genitourinary no complaint. Chest: No complaint. Musculoskeletal: No complaint. Integumentary: No complaint. Psychological: No complaint. Endocrine: No complaint. Neurological: No complaint. PAST MEDICAL HISTORY: Significant for hypertension, hyperlipidemia, BPH, multiple skin lymphoma. PAST SURGICAL HISTORY: Right IJ Port-A-Cath placement on 05/14/2017. Bone marrow aspirate the same-day , colonoscopy and fistula repair. Ultrasound-guided neck lymph node biopsy. SOCIAL HISTORY: No history of smoking, drinking, or drug use. FAMILY HISTORY: Father with history of prostate cancer. Mother history of hypertension who from aortic aneurysm dissection. ALLERGIES: No known drug allergies. MEDICATIONS: Include the patient is currently on Robitussin, Toprol-XL, Theragran, Zofran, prednisone. EXAMINATION: Blood pressure is 130/65 with a pulse of 66, temperature of 98, T-max is 102. He is 93% on 4 L nasal cannula. General description is a middle aged male up in the bed, in no distress. No tachypnea or accessory muscles of respiration use. HEENT examination: No pallor or scleral icterus. Oral mucosa membranes is moist. No thrush or pharyngeal erythema. Neck trachea central. No thyromegaly. Lungs unlabored breathing with decreased breath sounds in the right base. No wheeze. HEART: S1, S2. Regular rate and rhythm. Abdomen soft, no tenderness. No guarding. No rigidity. EXTREMITIES: No edema of feet. Skin examination: No rashes or mass palpable. Neurological: Patient is awake, alert, oriented x3. Mood and affect normal. LABS: Hemoglobin 13.4, white count 8.0, BUN of 34, creatinine 1.72. Blood culture on admission has been negative so far. DIAGNOSTIC IMPRESSION AND PLAN: The patient with a fever in a patient admitted to the hospital with right-sided pleural effusion with recent diagnosis of non-Hodgkin lymphoma, and recent Port A Cath placement. However, the patient now getting chemotherapy. The patient did have a chest x-ray this morning which did show minimal worsening of the small pleural effusion and right basilar airspace disease could be the likely source of his fever as clinically no other clinical focus of infection. His abdomen is soft on clinical examination. No urinary symptoms. No evidence of any cellulitis or joint swelling. As patient has been recently admitted to the hospital. Need to cover for the resistant gram positive gram-negative pathogen and also need to rule out acute influenza. PLAN: 1. We will check a nasopharyngeal swab for influenza A. 2. Will obtain blood culture with sputum culture. 3. Subsequently the patient started on cefepime 2 g q.8 hours and vancomycin pharmacy to dose target trough of 15 and will need to monitor his kidney function Very closely 4. We will follow up on his clinical condition as well as cultures to further adjust medication if needed. Thank you for this consultation. Will follow this patient along with you. LYNNE / NASH: [id number] / POWER
[2017-05-22 07:20] LABS: Anion Gap 7 mmol/L; Blood Urea Nitrogen 34 mg/dL (9-20); Carbon Dioxide 26 mmol/L (22-30); Chloride 105 mmol/L (98-107); Glucose 136 mg/dL (74-99); Phosphorus 3.7 mg/dL (2.5-4.5); Sodium 138 mmol/L (137-145); Uric Acid 1.8 mg/dL (3.5-8.5)
--- NOTE | 2017-05-22 07:50 | XR ---
EXAMINATION TYPE: XR chest 1V portable DATE OF EXAM: 05/22/2017 Comparison: 05/21/2017 Clinical History: 57-year-old male Right pleural effusion. Findings: Right-sided tunneled catheter with tip at the lower SVC. Heart remains borderline enlarged. Increasing airspace opacity peripheral left base with similar smal l left effusion. The previous small right pleural effusion shows improvement in aeration in the right mid and lower lung is also partially improved. Mild prominence to the pulmonary vasculature. Impression: 1. Correlate for fluid overload and mild pulmonary vascular congestion. 2. Migratory infiltrates with improvement on the right and worsening at the left base. Findings sugge st etiology such as pulmonary edema. Clinically correlate. 3. Small right effusion shows improvement. There is small left effusion now.
[2017-05-22] MEDS ORDERED: VANCOMYCIN 1,750 MG in SODIUM CHLORIDE 0.9% 250 ML IVPB SCH (09:00)
[2017-05-22] MEDS: predniSONE 50 MG TAB PO SCH (09:52)
[2017-05-22] MEDS: METOPROLOL SUCCINATE (ER) 50 MG TAB.ER.24H PO SCH (09:53)
[2017-05-22] MEDS: HEPARIN SODIUM,PORCINE 5,000 UNIT/ML 1 ML VIAL SQ SCH ×2 (09:54→16:14)
[2017-05-22] MEDS: MULTIVITAMINS, THERA 1 EACH TAB PO SCH (11:43)
[2017-05-22] MEDS: SALT AND SODA MOUTHWASH 1,000 ML PO SCH ×3 (11:44→20:11)
[2017-05-22] MEDS: CEFEPIME 2 GM in SODIUM CHLORIDE 0.9% 50 ML IVPB SCH (12:09)
--- NOTE | 2017-05-22 13:41 | PN ---
PROGRESS NOTE DATE OF SERVICE: 05/22/2017 REASON FOR FOLLOWUP: Fever. INTERVAL HISTORY: The patient is afebrile. The patient is feeling much better, almost 90%. He has as been breathing comfortably. No chest pain. No cough. Still has some drainage in his catheter from the right chest. No nausea, no vomiting. No abdominal pain, no diarrhea. PHYSICAL EXAMINATION: On examination, blood pressure is 124/68 with a pulse of 73, temperature of 98. He is 98% on 2 L nasal cannula. General description is a middle aged male up in the bed, in no distress. RESPIRATORY SYSTEM: Unlabored breathing. Some decreased breath sounds at the bases. No wheeze. HEART: S1, S2. Regular rate and rhythm. ABDOMEN: Soft, no tenderness. LABS: No CBC was done today. His BUN of 34, creatinine is 1.13. Blood culture has been negative. Influenza was negative. Chest x-ray this morning fluid overload, mild pulmonary vascular congestion, small right effusion shows improvement. DIAGNOSTIC IMPRESSION AND PLAN: Patient with a fever in a patient with recent diagnosis of lymphoma admitted to the hospital with right-sided pleural effusion, status post drainage with question of possible chylothorax. The patient's fever has resolved, could have been related to his underlying malignancy as clinically does not behave like a bacterial infection, does not look Toxic.White count was normal. Culture negative so far. If the culture remains negative, antibiotic can be safely discontinued. MMODL / IJN: [id number] / MTDD
--- NOTE | 2017-05-22 14:22 | P.PN ---
Subjective Progress Note Date: 05/22/17 Principal diagnosis: Non-Hodgkin's lymphoma, large right chylothorax, hypertension, hyperlipidemia, obesity with a BMI of 33.5, prostate disorder, not intentional weight loss. This a 57-year-old gentleman who is followed by . this is a 57-year-old gentleman who is followed by Dr. Lj Trinh on an outpatient basis. Patient has a recent diagnosis of non-Hodgkin's lymphoma. On 05/14/2017 he underwent a placement of a right internal jugular Port-A-Cath in preparation for chemotherapy treatment. He presented to the emergency department here at [facility] on 05/20/2017 with complaints of progressive shortness of breath and a nagging dry cough. Subsequently he underwent a chest x-ray and CT angiogram of his chest which demonstrated interval development of complete collapse of the right lung filling the entire right hemithorax. A pigtail catheter was placed yesterday by interventional radiology and the pigtail catheter drained white yellowish drainage consistent with chylothorax. Chylomicrons and triglyceride levels of the pleural fluid are pending. The patient is sitting up to the bedside chair in no acute distress. He reports that he is breathing is much improved since having the pigtail catheter placed. He is currently on 2 L nasal cannula with oxygen saturations of 98%. He rates his pain 0 out of 10 on the pain scale. He reports that he has been ambulating in the hallway without assistance. Objective - Vital Signs Vital signs: Vital Signs Temp 98 F 05/22/17 11:00 Pulse 73 05/22/17 11:00 Resp 18 05/22/17 11:00 BP 124/68 05/22/17 11:00 Pulse Ox 98 05/22/17 11:00 Intake & Output 05/21/17 05/22/17 05/22/17 18:59 06:59 18:59 Intake Total 448.333 590 710 Output Total 995 1970 950 Balance -546.667 -1380 -240 Weight 99 kg Intake: Intake, IV Titration 448.333 710 Amount Cefepime 2 gm In Sodium 50 Chloride 0.9% 50 ml @ 100 mls/hr IVPB Q12HR@0000, 1200 [facility] Rx#:[id number] Fosaprepitant Dimeglumine 145 150 mg In Sodium Chloride 0.9% 145 ml @ 300 mls/hr IV ONCE ONE Rx #:[id number] Ondansetron 16 mg In 50 Sodium Chloride 0.9% 50 ml @ 100 mls/hr IVPB ONCE ONE Rx#:[id number] Sodium Chloride 0.9% 1, 410 000 ml @ 75 mls/hr IV . [id number] [facility] Rx#:[id number] Vancomycin 1,500 mg In 250 Sodium Chloride 0.9% 250 ml @ 125 mls/hr IVPB Q12HR [facility] Rx#:[id number] riTUXimab 800 mg In 253.333 Sodium Chloride 0.9% 500 ml @ Titrate IV .Q0M ONE Rx#:[id number] Oral 590 Output: Chest Tube Drainage 995 1350 950 Pleural Catheter Right 995 1350 950 Lower Posterior Chest Other 620 Other: Voiding Method Toilet Toilet - Constitutional General appearance: Present: cooperative, no acute distress, obese - EENT Eyes: Present: PERRLA ENT: Present: hearing grossly normal - Neck Details: No JVD, enlarged lymph nodes to his left neck and left supraclavicular nodes. - Respiratory Details: Lung sounds with few scattered crackles throughout, diminished to his bilateral bases left greater than right. Respirations are symmetrical and nonlabored. Oxygen saturation saturations are 98% on 2 L nasal cannula. He is achieving 1750 mL on his incentive spirometry. Pigtail catheter remains in place to his right posterior chest, secured dry and intact. Draining milky pink tinged color drainage. 1350 mL output in the last 8 hours, 2345 mL output in the last 24 hours. - Cardiovascular Details: Regular rhythm and rate. S1 and S2 present, negative for S3, gallop or murmur. No edema present. Peripheral pulses palpable. - Gastrointestinal Gastrointestinal Comment(s): Abdomen is soft, nontender and nondistended. No organomegaly. No guarding or rigidity. Tolerating oral intake. He remains on fat-free diet. - Genitourinary Genitourinary Comment(s): Adequate urine output. - Integumentary Integumentary Comment(s): Skin is warm dry and intact. No clubbing or cyanosis. Right chest pigtail catheter dressing clean dry and intact. - Neurologic Neurologic: Present: CNII-XII intact - Musculoskeletal Musculoskeletal: Present: gait normal, strength equal bilaterally - Psychiatric Psychiatric: Present: A&O x's 3, appropriate affect, intact judgment & insight - Allied health notes Allied health notes reviewed: nursing - Labs CBC & Chem 7: 05/21/17 06:31 05/22/17 06:53 Labs: Abnormal Lab Results - Last 24 Hours (Table) 05/22/17 Range/Units 06:53 BUN 34 H (9-20) mg/dL Glucose 136 H (74-99) mg/dL Uric Acid 1.8 L (3.5-8.5) mg/dL Microbiology - Last 24 Hours (Table) 05/19/17 10:30 Blood Culture - Preliminary Blood No Growth after 72 hours - Imaging and Cardiology Chest x-ray: report reviewed, image reviewed Assessment and Plan (1) Pleural effusion, right Current Visit: Yes Status: Acute Code(s): J90 - PLEURAL EFFUSION, NOT ELSEWHERE CLASSIFIED SNOMED Code(s): 48419690 (2) Non Hodgkin's lymphoma Current Visit: Yes Status: Acute Priority: High Code(s): C85.90 - NON- HODGKIN LYMPHOMA, UNSPECIFIED, UNSPECIFIED SITE SNOMED Code(s): 556427556 (3) Hypertension Current Visit: Yes Status: Acute Code(s): I10 - ESSENTIAL (PRIMARY) HYPERTENSION SNOMED Code(s): 75912015 (4) Hyperlipidemia Current Visit: Yes Status: Acute Code(s): E78.5 - HYPERLIPIDEMIA, UNSPECIFIED SNOMED Code(s): 59483686 (5) Obesity (BMI 30.0-34.9) Current Visit: Yes Status: Acute Code(s): E66.9 - OBESITY, UNSPECIFIED SNOMED Code(s): 249739344 (6) Weight loss, non-intentional Current Visit: Yes Status: Acute Code(s): R63.4 - ABNORMAL WEIGHT LOSS SNOMED Code(s): 547847645 (7) Prostate disorder Current Visit: Yes Status: Acute Code(s): N42.9 - DISORDER OF PROSTATE, UNSPECIFIED SNOMED Code(s): 46741265 Plan: 1. Pleural fluid results pending for chylomicrons and triglyceride levels. 2. Non-Hodgkin lymphoma management per oncology. 3. Pulmonary management per Dr. Nathan's recommendations. 4. Increase activity as tolerated. Ambulate in the hallway as tolerated. 5. Leave pigtail catheter unclamped today, we will repeat chest x-ray in a.m. 6. Maintain patient on strict fat-free diet. 7. More recommendations to follow as patient progresses or care. Time with Patient: Greater than 30
--- NOTE | 2017-05-22 14:57 | P.PN ---
Subjective Progress Note Date: 05/22/17 Principal diagnosis: Large right chylothorax, status post right pleural pigtail chest tube insertion. John is a 57-year-old white male patient that follows with Dr. Bonilla for his recently diagnosed Non-Hodgkins lymphoma, that was discovered during evaluation of patient's loss of appetite, weight loss, abdominal discomfort, and full sensation with the CT of the abdomen and pelvis on 04/23/2017. This CT showed lower paraesophageal, upper abdominal, mesenteric and retroperitoneal lymphadenopathy, splenomegaly, and focal wall thickening of the duodenum. Patient had a ultrasound-guided core biopsy of the left neck lymphadenopathy on 05/07/2017. The results of the biopsy were positive for diffuse large B-cell lymphoma, germinal center type. Staging PET scan on 05/10/2017 shows lymphoma or neoplastic involvement above and below diaphragm, new moderate to large size right pleural effusion, and persistent suspicious lesion anterior to distal third portion of duodenum that could reflect intra-abdominal abscess. Patient presented to the emergency department on 05/19/2017 with complaints of increased shortness of breath, slight cough, severe limitation of activity related to his dyspnea, and orthopnea over the last couple of days. He denied any chest pain, fever or chills. Denied any chest wall tenderness or hemoptysis. He had a Port-a-Cath placed on 05/14/[address] Velazquez in his right upper chest. Chest x-ray post line placement showed no evidence of pneumothorax, but there was evidence of developing right-sided pleural effusion. Chest x-ray from 05/19/2017 taken in the ED, showed worsening right- sided pleural effusion with complete opacification consistent with right hemithorax. Chest CTA on 05/19/2017 showed no evidence for pulmonary embolism, but interval development of complete collapse of the right lung with filling of the entire right hemithorax with fluid. Soft tissue mass adjacent to the mid to distal esophagus. chest ultrasound from 05/19/2017 showed a right pleural effusion fluid pocket of 13.3 cm. Clinically patient continued on 2 L per nasal cannula with O2 sat between 94-97%. He is complaining of orthopnea, dyspnea. Cardiothoracic surgery was consulted and recommended placement of a pigtail catheter in the right pleural in view of rapid accumulation of fluid from 2017 to 05/19/2017 as evidenced on the radiographic studies, and in view of patient's underlying malignancy the likelihood of recurrency of the pleural fluid is high. Interventional radiology was consulted for placement of right pleural pigtail chest tube today. This was discussed with the patient, was in agreement with the plan. On 05/21/2017 patient is status post right pleural pigtail catheter insertion, with drainage of large amount (2050 ML over the last 24 hours) of chyle, milky white yellow drainage, consistent with chylothorax. Patient was started on IV chemotherapy today, Cytoxan, Adriamycin, Emend, Elitek, Rituxan, Vincristine and high dose prednisone 100 mg daily for 5 days. Today he reports improvement in terms of dyspnea, currently on 4 L per nasal cannula with O2 sat at 96%. Did have a fever spike last night, temp of 102.6 at 1725 on 05/20/2017. This was also accompanied by increased shortness of breath, which has improved. Infectious disease was consulted, blood cultures were collected and sent, sputum culture was ordered, however patient is not producing any sputum at this time. Influenza screen was ordered. Patient was started on a combination of cefepime and vancomycin for empiric antibiotic coverage. Patient was placed on the fat-free diet. This morning he is doing better, his temp is normal at 97.0 F, he is hemodynamically stable, denies any shortness of breath at the moment, his chest x-ray from this morning shows minimal worsening of the small right pleural effusion, right basilar airspace disease, likely atelectasis and interstitial fluid in comparison to the prior with persistent mild pulmonary vascular congestion. On 05/22/2017 patient seen in follow-up on the oncology floor. He is resting comfortably in bed, denies any acute distress, denies any dyspnea. Currently on 2 L per nasal cannula with O2 sat 98%. No episodes of fever in the last 24 hours. His lung sounds remain diminished over right lower lobe, there are rales over left lower lobe. Patient is compliant with his incentive spirometer , able to achieve 1750 on it today. Has been ambulating, tolerating activity well. Right pigtail catheter drainage bag is with small amount of tannish, white colored fluid. Patient had 2345 mL output from his pigtail catheter in last 24 hours. He is receiving IV hydration with 0.9 at 75, continues on empiric antibiotics on cefepime and vancomycin. His blood cultures remain negative at 72 hour pastora. Influenza screen was negative. Patient does have night sweats, due to his non-Hodgkin's lymphoma. Otherwise continues to improve. From pulmonary standpoint he could considered for discharge home today. Objective - Vital Signs Vital signs: Vital Signs Temp 98 F 05/22/17 11:00 Pulse 73 05/22/17 11:00 Resp 18 05/22/17 11:00 BP 124/68 05/22/17 11:00 Pulse Ox 98 05/22/17 11:00 Intake & Output 05/21/17 05/22/17 05/22/17 18:59 06:59 18:59 Intake Total 448.333 590 710 Output Total 995 1970 950 Balance -546.667 -1380 -240 Weight 99 kg Intake: Intake, IV Titration 448.333 710 Amount Cefepime 2 gm In Sodium 50 Chloride 0.9% 50 ml @ 100 mls/hr IVPB Q12HR@0000, 1200 [facility] Rx#:[id number] Fosaprepitant Dimeglumine 145 150 mg In Sodium Chloride 0.9% 145 ml @ 300 mls/hr IV ONCE ONE Rx #:[id number] Ondansetron 16 mg In 50 Sodium Chloride 0.9% 50 ml @ 100 mls/hr IVPB ONCE ONE Rx#:[id number] Sodium Chloride 0.9% 1, 410 000 ml @ 75 mls/hr IV . [id number] [facility] Rx#:[id number] Vancomycin 1,500 mg In 250 Sodium Chloride 0.9% 250 ml @ 125 mls/hr IVPB Q12HR [facility] Rx#:[id number] riTUXimab 800 mg In 253.333 Sodium Chloride 0.9% 500 ml @ Titrate IV .Q0M ONE Rx#:[id number] Oral 590 Output: Chest Tube Drainage 995 1350 950 Pleural Catheter Right 995 1350 950 Lower Posterior Chest Other 620 Other: Voiding Method Toilet Toilet - Exam GENERAL EXAM: Alert, pleasant, 57-year-old white male, in no acute distress HEAD: Normocephalic/atraumatic. EYES: Normal reaction of pupils, equal size. Conjunctiva pink, sclera white. NOSE: Clear with pink turbinates. THROAT: No erythema or exudates. NECK: No masses, no JVD, no thyroid enlargement, no adenopathy. CHEST: No chest wall deformity. Symmetrical expansion. Right posterior pleural pigtail catheter connected to a drainage bag with milky whitish yellow output LUNGS: diminished lung sounds over right lung, bibasilar crackles at the left base. CVS: Regular rate and rhythm, normal S1 and S2, no gallops, no murmurs, no rubs ABDOMEN: Soft, nontender. No hepatosplenomegaly, normal bowel sounds, no guarding or rigidity. EXTREMITIES: No clubbing, no edema, no cyanosis, 2+ pulses and upper and lower extremities. MUSCULOSKELETAL: Muscle strength and tone normal. SPINE: No scoliosis or deformity SKIN: No rashes CENTRAL NERVOUS SYSTEM: Alert and oriented -3. No focal deficits, tone is normal in all 4 extremities. PSYCHIATRIC: Alert and oriented -3. Appropriate affect. Intact judgment and insight. - Labs CBC & Chem 7: 05/21/17 06:31 05/22/17 06:53 Labs: Abnormal Lab Results - Last 24 Hours (Table) 05/22/17 Range/Units 06:53 BUN 34 H (9-20) mg/dL Glucose 136 H (74-99) mg/dL Uric Acid 1.8 L (3.5-8.5) mg/dL Microbiology - Last 24 Hours (Table) 05/19/17 10:30 Blood Culture - Preliminary Blood No Growth after 72 hours Assessment and Plan Plan: Assessment: #1. Large right chylothorax, rapid progression from 05/14/2017 to 05/19/2017, on presentation chest x-ray on 05/19/2017 shows near complete opacification of the right lung due to the pleural effusion, with secondary dyspnea. Patient is status post right pigtail chest tube placement on 05/20/2017 with drainage of a large (over 2 L in the 24 hours) milky white, yellowish pleural fluid, consistent with chyle #2. Non-Hodgkin's lymphoma, recent diagnosis. Patient has been initiated on chemotherapy per medical oncology today with a combination of Cytoxan, Adriamycin,Emend, Elitek, Rituxan and high dose steroids with prednisone 100 mg daily 5 days. #3. Febrile illness, rule out sepsis, patient was empirically started on cefepime and vancomycin, blood cultures were obtained and sent, will obtain sputum specimen, if able, patient is not producing any sputum. Influenza screen was negative. Blood cultures are negative so far. No further episodes of fever. Patient does have nightly sweats, likely secondary to his diagnosis of non-Hodgkin's lymphoma. #4. Acute kidney injury, unspecified. Possibly related to ATN, vancomycin, or chemotherapy, improved with IV hydration. On 05/22/2017 his BUN is 34, and creatinine is 1.13. #5. Elevated d-dimer, of 4.41, CTA chest negative for any evidence of pulmonary embolism. #6. Placement of Port-a-Cath in the right upper chest on 05/14/2017, with no complications #7. Essential hypertension Plan: No further febrile episodes, he continues on empiric antibiotics cefepime and vancomycin. Clinically patient lobe looks nontoxic, reports feeling better, breathing easier. Was able to ambulate in the hallway without assistance, tolerated well. Doubt sepsis. Renal profile has improved with IV hydration. From pulmonary/critical care standpoint, patient can be discharged home today, pending clearance from other consultants. I performed a history & physical examination of the patient and discussed their management with my nurse practitioner, Nilsa Paredes. I reviewed the nurse practitioner's note and agree with the documented findings and plan of care. Lung sounds are diminished over right lung, a few crackles on the left. The findings and the impression was discussed with the patient. I attest to the documentation by the nurse practitioner. Time with Patient: Less than 30
--- NOTE | 2017-05-22 17:03 | P.PN ---
Subjective Progress Note Date: 05/22/17 Progress Note being dictated for Dr. Owusu Interval history:This is a 57-year-old male who presents emergency Department with a recent diagnosis of lymphoma May 05. Patient had a port placed last Friday. Patient states over the last couple of days he's been short of breath and is finding it difficult to even walk from room to room. Patient denies any chest pain or palpitations. Patient states he does not have a fever or chills today but the other day he did have a temp of 100. Patient denies any significant abdominal pain patient denies nausea vomiting diarrhea. Denies any lightheadedness or dizziness. Patient did get a CAT scan which showed A pleural effusion involving the whole entire right hemithorax. A low-grade fever although does not appear to have pneumonic process low-grade fever is probably related to lymphoma itself and patient had a recent right hemithorax port put in. Does have dry cough from pleural effusion. Pulmonology was consulted patient probably will need cardiac thoracic surgery consult as well discussed with the Dr. Hernandez who put in the Port-A-Cath Review of Systems REVIEW OF SYSTEMS: CONSTITUTIONAL: No fever, no malaise, no fatigue. HEENT: No recent visual problems or hearing problems. Denied any sore throat. CARDIOVASCULAR: No chest pain, orthopnea, PND, no palpitations, no syncope. PULMONARY: As mentioned above GASTROINTESTINAL: No diarrhea, no nausea, no vomiting, no abdominal pain. Normoactive bowel sounds. NEUROLOGICAL: No headaches, no weakness, no numbness. HEMATOLOGICAL: Denies any bleeding or petechiae. GENITOURINARY: Denies any burning micturition, frequency, or urgency. MUSCULOSKELETAL/RHEUMATOLOGICAL: Denies any joint pain, swelling, or any muscle pain. ENDOCRINE: Denies any polyuria or polydipsia. The rest of the 14-point review of systems is 05/20/17 mild tachypnea, maintaining O2 sats in the mid 90s on 2 L nasal cannula .scheduled for placement of right pleural pigtail drain today. Beta donell resumed. Afebrile. 05/21/2017 status post right pleural pigtail placement with large-volume drainage at greater than 2 L/24h. Drainage of whitish yellow, chylothorax suspected. States breathing and pain improved and high doses of steroids. Nonproductive cough. Earlier this morning patient was on 10 L which has been weaned down to 5 L, maintaining O2 sats in the high 90s. Chest x-ray reporting minimal worsening of small right pleural effusion, right basilar airspace disease/atelectasis and interfissural fluid fluid, persistent mild pulmonary vascular congestion. Echo suboptimal, reporting moderate concentric left ventricular hypertrophy, normal LV function, EF 60-65%. Chemotherapy initiated today. T-max 102.6,WBC WNL. blood cultures ordered, sputum culture ordered. Infectious disease consulted. Worsening renal function. 05/22/2017 maintained on IV fluid hydration, empiric antibiotics of vancomycin and cefepime. Afebrile. Preliminary blood cultures negative. Breathing improving, ambulating in hallway on room air maintaining O2 sats in the high 90s. Incentive spirometer up to 1750. Chest x-ray reporting mild pulmonary vascular congestion, migratory infiltrates with improvement on the right and worsening at left base/pulmonary edema, improvement in small right effusion, small left effusion now. States pain controlled.Good diet intake. Objective - Vital Signs Vital signs: Vital Signs Temp 98.2 F 05/22/17 15:00 Pulse 81 05/22/17 15:00 Resp 18 05/22/17 15:00 BP 134/74 05/22/17 15:00 Pulse Ox 95 05/22/17 15:00 Intake & Output 05/21/17 05/22/17 05/22/17 18:59 06:59 18:59 Intake Total 448.333 590 710 Output Total 995 1970 950 Balance -546.667 -1380 -240 Weight 99 kg Intake: Intake, IV Titration 448.333 710 Amount Cefepime 2 gm In Sodium 50 Chloride 0.9% 50 ml @ 100 mls/hr IVPB Q12HR@0000, 1200 [facility] Rx#:[id number] Fosaprepitant Dimeglumine 145 150 mg In Sodium Chloride 0.9% 145 ml @ 300 mls/hr IV ONCE ONE Rx #:[id number] Ondansetron 16 mg In 50 Sodium Chloride 0.9% 50 ml @ 100 mls/hr IVPB [facility] Rx#:[id number] Sodium Chloride 0.9% 1, 410 000 ml @ 75 mls/hr IV . [id number] [facility] Rx#:[id number] Vancomycin 1,500 mg In 250 Sodium Chloride 0.9% 250 ml @ 125 mls/hr IVPB Q12HR [facility] Rx#:[id number] riTUXimab 800 mg In 253.333 Sodium Chloride 0.9% 500 ml @ Titrate IV .Q0M ONE Rx#:[id number] Oral 590 Output: Chest Tube Drainage 995 1350 950 Pleural Catheter Right 995 1350 950 Lower Posterior Chest Other 620 Other: Voiding Method Toilet Toilet - Exam GENERAL: The patient is sitting up at side of bed, alert and oriented x3, no acute distress. HEENT: Pupils are round and equally reacting to light. EOMI. No scleral icterus. No conjunctival pallor. Normocephalic, atraumatic. No pharyngeal erythema. No thyromegaly. CARDIOVASCULAR: S1 and S2 present. No murmurs, rubs, or gallops. PULMONARY: Right pigtail catheter present- whitish -pink drainage. Occasional Scattered crackles throughout with left basilar crackles, diminished-improving right lung ABDOMEN: Soft, nontender, nondistended, normoactive bowel sounds. No palpable organomegaly. MUSCULOSKELETAL: No joint swelling or deformity. EXTREMITIES: No cyanosis, clubbing, or pedal edema. NEUROLOGICAL: Gross neurological examination did not reveal any focal deficits. SKIN: No rashes. Microbiology 05/21/17 14:38 Blood Blood Culture - Preliminary No Growth after 24 hours 05/21/17 14:06 Blood Blood Culture - Preliminary No Growth after 24 hours 05/19/17 10:30 Blood Blood Culture - Preliminary No Growth after 72 hours - Labs CBC & Chem 7: 05/21/17 06:31 05/22/17 06:53 Labs: Abnormal Lab Results - Last 24 Hours (Table) 05/22/17 Range/Units 06:53 BUN 34 H (9-20) mg/dL Glucose 136 H (74-99) mg/dL Uric Acid 1.8 L (3.5-8.5) mg/dL Microbiology - Last 24 Hours (Table) 05/21/17 14:38 Blood Culture - Preliminary Blood No Growth after 24 hours 05/21/17 14:06 Blood Culture - Preliminary Blood No Growth after 24 hours 05/19/17 10:30 Blood Culture - Preliminary Blood No Growth after 72 hours Assessment and Plan Assessment: - shortness of breath: Secondary to right-sided pleural effusion,Chylothorax. 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 Status post right pigtail chest tube placement with Large volume drainage. -Recently diagnosed lymphoma non-Hodgkin's -Hypertension -Elevated d-dimer, chest CTA negative for PE -Fevers, possible sepsis -Acute renal failure, possibly med induced, possibly ATN Plan: Continue current medication regime ,monitoring and symptomatic treatment. Maintain IV fluid hydration, close monitoring of renal function, lytes.Infectious disease recommendations noted. Pleural fluid results pending. Close monitoring Blood cultures. Increase ambulation as tolerated. Discharge planning in progress. Cleared for discharge by both pulmonary and infectious disease with no antibiotics recommended at discharge. Discharge clearance pending from oncology, cardiothoracic surgery. The impression and plan of care has been dictated as directed. : I performed a history and examination of this patient, discussed the same with the dictator. I agree with the dictator's note ,documented as a scribe. Any additional findings or plans will be noted.
--- NOTE | 2017-05-22 19:34 | P.PN ---
Subjective Progress Note Date: 05/22/17 The patient states that his respiratory status is stable. Since placement of the tube, he has not had recurrent fever or chest pain. He does have some shortness of breath on exertion Objective - Vital Signs Vital signs: Vital Signs Temp 98.2 F 05/22/17 15:00 Pulse 81 05/22/17 15:00 Resp 18 05/22/17 15:00 BP 134/74 05/22/17 15:00 Pulse Ox 95 05/22/17 15:00 Intake & Output 05/22/17 05/22/17 05/23/17 06:59 18:59 06:59 Intake Total 590 710 Output Total 1970 950 Balance -1380 -240 Weight 99 kg Intake: Intake, IV Titration 710 Amount Cefepime 2 gm In Sodium 50 Chloride 0.9% 50 ml @ 100 mls/hr IVPB Q12HR@0000, 1200 [facility] Rx#:[id number] Sodium Chloride 0.9% 1, 410 000 ml @ 75 mls/hr IV . [id number] [facility] Rx#:[id number] Vancomycin 1,500 mg In 250 Sodium Chloride 0.9% 250 ml @ 125 mls/hr IVPB Q12HR [facility] Rx#:[id number] Oral 590 Output: Chest Tube Drainage 1350 950 Pleural Catheter Right 1350 950 Lower Posterior Chest Other 620 Other: Voiding Method Toilet Toilet - Constitutional General appearance: Present: no acute distress - EENT Eyes: Present: EOMI, PERRLA ENT: Present: hearing grossly normal, normal oropharynx - Neck Thyroid: bilateral: normal size - Respiratory Respiratory: right: diminished (Pleurx catheter present on the right. Drainage bags containing mixed milky and sanguinous fluid) - Cardiovascular Rhythm: regular Heart sounds: normal: S1, S2 - Gastrointestinal General gastrointestinal: Present: normal bowel sounds, soft - Integumentary Integumentary: Present: normal - Neurologic Neurologic: Present: CNII-XII intact - Musculoskeletal Musculoskeletal: Present: generalized weakness, strength equal bilaterally - Psychiatric Psychiatric: Present: A&O x's 3, appropriate affect - Labs CBC & Chem 7: 05/21/17 06:31 05/22/17 06:53 Labs: Abnormal Lab Results - Last 24 Hours (Table) 05/22/17 Range/Units 06:53 BUN 34 H (9-20) mg/dL Glucose 136 H (74-99) mg/dL Uric Acid 1.8 L (3.5-8.5) mg/dL Microbiology - Last 24 Hours (Table) 05/21/17 14:38 Blood Culture - Preliminary Blood No Growth after 24 hours 05/21/17 14:06 Blood Culture - Preliminary Blood No Growth after 24 hours 05/19/17 10:30 Blood Culture - Preliminary Blood No Growth after 72 hours Assessment and Plan (1) 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 This could be due to mechanical obstruction from lymphoma, or direct injury to the thoracic duct or both. Chest x-ray shows no significant recommendation of fluids since placement of the chest tube. The patient is symptomatically quite comfortable since tube placement. More aggressive intervention at this time is not planned by thoracic surgery appropriately. The patient will be followed to assess his response, with lymphoma treatment Current Visit: Yes Status: Acute Priority: High Code(s): I89.8 - OTH NONINFECTIVE DISORDERS OF LYMPHATIC VESSELS AND NODES SNOMED Code(s): 78745458 (2) Lymphoma Narrative/Plan: The patient was started on cycle 1 with [facility], due to his aggressive clinical presentation. he received treatment yesterday. He appears to have tolerated treatment quite well without untoward side effects noted so far. He will be started on salt and soda mouthwashes. Current Visit: No Status: Acute Code(s): C85.90 - NON-HODGKIN LYMPHOMA, UNSPECIFIED, UNSPECIFIED SITE SNOMED Code(s): 682778591 Plan: From our standpoint, the patient can be discharged home whenever felt to be appropriate by the admitting service and other consultants. Continue prednisone 100 mg daily for 5 days for chemotherapy protocol. He'll also continuous organs or at home. The office was contacted to set up follow-up in one week.
[2017-05-22] MEDS: VANCOMYCIN 1,500 MG in SODIUM CHLORIDE 0.9% 250 ML IVPB SCH (20:11)
[2017-05-23] MEDS: CEFEPIME 2 GM in SODIUM CHLORIDE 0.9% 50 ML IVPB SCH ×2 (00:05→12:15)
[2017-05-23] MEDS: HEPARIN SODIUM,PORCINE 5,000 UNIT/ML 1 ML VIAL SQ SCH ×2 (00:05→08:55)
--- NOTE | 2017-05-23 07:19 | P.DS ---
Providers Date of admission: 05/19/17 13:25 Attending physician: Ml Belle Consults: 05/19/17 13:25 Consult Physician Urgent Consulting Provider: Augn Nathan Consult Reason/Comments: Pleural effusion Do you want consulting provider notified?: Yes 05/19/17 16:56 Consult Physician Urgent Consulting Provider: Deepak Hernandez Consult Reason/Comments: port a cath placement Do you want consulting provider notified?: Already Contacted 05/19/17 18:49 Consult Physician Urgent Consulting Provider: Maria Elena Jeronimo Consult Reason/Comments: right pleural effusion Do you want consulting provider notified?: Yes 05/20/17 12:55 Consult Physician Routine Consulting Provider: Clem Raymond Consult Reason/Comments: Lymphoma Do you want consulting provider notified?: Yes 05/21/17 12:31 Consult Physician Routine Consulting Provider: Ruchi Arias Consult Reason/Comments: fevers Do you want consulting provider notified?: Yes Primary care physician: [facility] Course: 57-year-old male who presents emergency Department with a recent diagnosis of lymphoma May 05. Patient had a port placed last Friday. Patient states over the last couple of days he's been short of breath and is finding it difficult to even walk from room to room. Patient denies any chest pain or palpitations. Patient states he does not have a fever or chills today but the other day he did have a temp of 100. Patient denies any significant abdominal pain patient denies nausea vomiting diarrhea. Denies any lightheadedness or dizziness. Patient did get a CAT scan which showed A pleural effusion involving the whole entire right hemithorax. A low-grade fever although does not appear to have pneumonic process low-grade fever is probably related to lymphoma itself and patient had a recent right hemithorax port put in. Does have dry cough from pleural effusion. Pulmonology was consulted patient probably will need cardiac thoracic surgery consult as well discussed with the Dr. Hernandez who put in the Port-A-Cath 05/23/2017 Patient is clinically doing well no significant output from a pigtail catheter repeat chest x-ray results are pending and patient will be discharged today once cleared by cardiothoracic surgery patient was cleared by oncology, pulmonology and infectious disease patient will not require any antibiotics at this time oncology is recommending 5 days of 100 mg prednisone which will be prescribed to the patient and discontinue hydrochlorothiazide and amlodipine and losartan and patient will be continued on metoprolol. PHYSICAL EXAMINATION: GENERAL: The patient is alert and oriented x3, not in any acute distress. Well developed, well nourished. HEENT: Pupils are round and equally reacting to light. EOMI. No scleral icterus. No conjunctival pallor. Normocephalic, atraumatic. No pharyngeal erythema. No thyromegaly. CARDIOVASCULAR: S1 and S2 present. No murmurs, rubs, or gallops. PULMONARY: Chest is clear to auscultation, no wheezing or crackles. Pigtail catheter is in place on the right side of the chest no significant drainage from that today ABDOMEN: Soft, nontender, nondistended, normoactive bowel sounds. No palpable organomegaly. MUSCULOSKELETAL: No joint swelling or deformity. EXTREMITIES: No cyanosis, clubbing, or pedal edema. NEUROLOGICAL: Gross neurological examination did not reveal any focal deficits. SKIN: No rashes. Assessment and Plan Assessment: - right-sided pleural effusion,Chylothorax. 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 Status post right pigtail chest tube placement with Large volume drainage. -Recently diagnosed lymphoma non-Hodgkin's -Hypertension -Elevated d-dimer, chest CTA negative for PE -Fevers, possible sepsis -Acute renal failure, possibly med induced, possibly ATN Plan - Discharge Summary Discharge Rx Participant: No New Discharge Prescriptions: New predniSONE 100 mg PO DAILY #5 tab Continue Tamsulosin HCl [Flomax] 0.4 mg PO HS Metoprolol Succinate [Toprol XL] 50 mg PO DAILY Potassium Chloride [Klor-Con 10] 10 meq PO DAILY Discontinued amLODIPine [Norvasc] 10 mg PO HS Losartan/Hydrochlorothiazide [Losartan-Hctz 100-25 mg Tab] 1 tab PO DAILY Discharge Medication List Metoprolol Succinate [Toprol XL] 50 mg PO DAILY 05/07/17 [History] Potassium Chloride [Klor-Con 10] 10 meq PO DAILY 05/07/17 [History] Tamsulosin HCl [Flomax] 0.4 mg PO HS 05/07/17 [History] predniSONE 100 mg PO DAILY #5 tab 05/23/17 [Rx] Follow up Appointment(s)/Referral(s): Fernie Bonilla MD [STAFF PHYSICIAN] - 05/28/17 7:30 am Estee Trinh III, MD [Primary Care Provider] - 3 Days Discharge Disposition: HOME SELF-CARE
[2017-05-23 07:25] VITALS: TEMP 97.8
[2017-05-23 07:45] LABS: Anion Gap 5 mmol/L; Blood Urea Nitrogen 35 mg/dL (9-20); Calcium 9.2 mg/dL (8.4-10.2); Carbon Dioxide 27 mmol/L (22-30); Chloride 107 mmol/L (98-107); Glucose 106 mg/dL (74-99); Phosphorus 3.2 mg/dL (2.5-4.5); Potassium 4.4 mmol/L (3.5-5.1); Sodium 139 mmol/L (137-145); Uric Acid 2.6 mg/dL (3.5-8.5)
--- NOTE | 2017-05-23 08:03 | XR ---
EXAMINATION TYPE: XR chest 1V portable DATE OF EXAM: 05/23/2017 COMPARISON: Prior chest x-ray 05/22/2017 HISTORY: Chest tube TECHNIQUE: Single frontal view of the chest is obtained. FINDINGS: Right-sided pleural drainage catheter is present. Port-A-Cath is noted. No evident pneumot horax. There is improvement in aeration within the lungs. Heart is stable. Overlying cardiac leads no lala. IMPRESSION: Improvement in aeration. Stable right pleural drainage catheter.
[2017-05-23] MEDS: VANCOMYCIN 1,500 MG in SODIUM CHLORIDE 0.9% 250 ML IVPB SCH (08:32)
[2017-05-23] MEDS: predniSONE 50 MG TAB PO SCH (08:54)
[2017-05-23] MEDS: METOPROLOL SUCCINATE (ER) 50 MG TAB.ER.24H PO SCH (08:54)
[2017-05-23] MEDS: SALT AND SODA MOUTHWASH 1,000 ML PO SCH ×2 (08:58→12:14)
[2017-05-23] MEDS: SODIUM CHLORIDE 0.9% 1,000 ML IV SCH (10:28)
[2017-05-23] MEDS: MULTIVITAMINS, THERA 1 EACH TAB PO SCH (12:15)
--- NOTE | 2017-05-23 13:11 | P.PN ---
Subjective Progress Note Date: 05/23/17 Principal diagnosis: Large right chylothorax, status post right pleural pigtail chest tube insertion. John is a 57-year-old white male patient that follows with Dr. Bonilla for his recently diagnosed Non-Hodgkins lymphoma, that was discovered during evaluation of patient's loss of appetite, weight loss, abdominal discomfort, and full sensation with the CT of the abdomen and pelvis on 04/23/2017. This CT showed lower paraesophageal, upper abdominal, mesenteric and retroperitoneal lymphadenopathy, splenomegaly, and focal wall thickening of the duodenum. Patient had a ultrasound-guided core biopsy of the left neck lymphadenopathy on 05/07/2017. The results of the biopsy were positive for diffuse large B-cell lymphoma, germinal center type. Staging PET scan on 05/10/2017 shows lymphoma or neoplastic involvement above and below diaphragm, new moderate to large size right pleural effusion, and persistent suspicious lesion anterior to distal third portion of duodenum that could reflect intra-abdominal abscess. Patient presented to the emergency department on 05/19/2017 with complaints of increased shortness of breath, slight cough, severe limitation of activity related to his dyspnea, and orthopnea over the last couple of days. He denied any chest pain, fever or chills. Denied any chest wall tenderness or hemoptysis. He had a Port-a-Cath placed on 05/14/[address] Velazquez in his right upper chest. Chest x-ray post line placement showed no evidence of pneumothorax, but there was evidence of developing right-sided pleural effusion. Chest x-ray from 05/19/2017 taken in the ED, showed worsening right- sided pleural effusion with complete opacification consistent with right hemithorax. Chest CTA on 05/19/2017 showed no evidence for pulmonary embolism, but interval development of complete collapse of the right lung with filling of the entire right hemithorax with fluid. Soft tissue mass adjacent to the mid to distal esophagus. chest ultrasound from 05/19/2017 showed a right pleural effusion fluid pocket of 13.3 cm. Clinically patient continued on 2 L per nasal cannula with O2 sat between 94-97%. He is complaining of orthopnea, dyspnea. Cardiothoracic surgery was consulted and recommended placement of a pigtail catheter in the right pleural in view of rapid accumulation of fluid from 2017 to 05/19/2017 as evidenced on the radiographic studies, and in view of patient's underlying malignancy the likelihood of recurrency of the pleural fluid is high. Interventional radiology was consulted for placement of right pleural pigtail chest tube today. This was discussed with the patient, was in agreement with the plan. On 05/21/2017 patient is status post right pleural pigtail catheter insertion, with drainage of large amount (2050 ML over the last 24 hours) of chyle, milky white yellow drainage, consistent with chylothorax. Patient was started on IV chemotherapy today, Cytoxan, Adriamycin, Emend, Elitek, Rituxan, Vincristine and high dose prednisone 100 mg daily for 5 days. Today he reports improvement in terms of dyspnea, currently on 4 L per nasal cannula with O2 sat at 96%. Did have a fever spike last night, temp of 102.6 at 1725 on 05/20/2017. This was also accompanied by increased shortness of breath, which has improved. Infectious disease was consulted, blood cultures were collected and sent, sputum culture was ordered, however patient is not producing any sputum at this time. Influenza screen was ordered. Patient was started on a combination of cefepime and vancomycin for empiric antibiotic coverage. Patient was placed on the fat-free diet. This morning he is doing better, his temp is normal at 97.0 F, he is hemodynamically stable, denies any shortness of breath at the moment, his chest x-ray from this morning shows minimal worsening of the small right pleural effusion, right basilar airspace disease, likely atelectasis and interstitial fluid in comparison to the prior with persistent mild pulmonary vascular congestion. On 05/22/2017 patient seen in follow-up on the oncology floor. He is resting comfortably in bed, denies any acute distress, denies any dyspnea. Currently on 2 L per nasal cannula with O2 sat 98%. No episodes of fever in the last 24 hours. His lung sounds remain diminished over right lower lobe, there are rales over left lower lobe. Patient is compliant with his incentive spirometer , able to achieve 1750 on it today. Has been ambulating, tolerating activity well. Right pigtail catheter drainage bag is with small amount of tannish, white colored fluid. Patient had 2345 mL output from his pigtail catheter in last 24 hours. He is receiving IV hydration with 0.9 at 75, continues on empiric antibiotics on cefepime and vancomycin. His blood cultures remain negative at 72 hour pastora. Influenza screen was negative. Patient does have night sweats, due to his non-Hodgkin's lymphoma. Otherwise continues to improve. From pulmonary standpoint he could considered for discharge home today. On 05/23/2017 patient seen in follow-up. Doing very well, denies any worsening dyspnea. He was able to sleep well last night. No febrile episodes in the last 24 hours, patient is on room air, with O2 sat 98%. Vital signs are stable. Lung sounds are diminished over right lower lobe posteriorly, clear over right middle and upper lobes. Clear on the left. Pigtail catheter is in place, the drainage is now transparent, lock-colored with small strands of fibrin in its. No acute abnormality on today's blood work, renal profile has completely recovered, his creatinine is 0.96. Patient has received IV hydration. His oral intake is good. He is stable for discharge home from pulmonary standpoint, we'll need follow-up appointment Dr. Nathan in the office in one week. Objective - Vital Signs Vital signs: Vital Signs Temp 97.8 F 05/23/17 07:24 Pulse 67 05/23/17 07:29 Resp 17 05/23/17 07:29 BP 119/69 05/23/17 07:24 Pulse Ox 98 05/23/17 07:24 Intake & Output 05/22/17 05/23/17 05/23/17 18:59 06:59 18:59 Intake Total 710 1590 Output Total 950 450 500 Balance -240 1140 -500 Intake: Intake, IV Titration 710 1000 Amount Cefepime 2 gm In Sodium 50 Chloride 0.9% 50 ml @ 100 mls/hr IVPB Q12HR@0000, 1200 [facility] Rx#:[id number] Sodium Chloride 0.9% 1, 410 750 000 ml @ 75 mls/hr IV . [id number] [facility] Rx#:[id number] Vancomycin 1,500 mg In 250 250 Sodium Chloride 0.9% 250 ml @ 125 mls/hr IVPB Q12HR [facility] Rx#:[id number] Oral 590 Output: Chest Tube Drainage 950 450 500 Pleural Catheter Right 950 450 500 Lower Posterior Chest Other: Voiding Method Toilet Toilet Toilet # Voids 2 - Exam GENERAL EXAM: Alert, pleasant, 57-year-old white male, in no acute distress HEAD: Normocephalic/atraumatic. EYES: Normal reaction of pupils, equal size. Conjunctiva pink, sclera white. NOSE: Clear with pink turbinates. THROAT: No erythema or exudates. NECK: No masses, no JVD, no thyroid enlargement, no adenopathy. CHEST: No chest wall deformity. Symmetrical expansion. Right posterior pleural pigtail catheter connected to a drainage bag with lock-colored transparent output with small strands of fibrin LUNGS: diminished lung sounds over right lung, bibasilar crackles at the left base. CVS: Regular rate and rhythm, normal S1 and S2, no gallops, no murmurs, no rubs ABDOMEN: Soft, nontender. No hepatosplenomegaly, normal bowel sounds, no guarding or rigidity. EXTREMITIES: No clubbing, no edema, no cyanosis, 2+ pulses and upper and lower extremities. MUSCULOSKELETAL: Muscle strength and tone normal. SPINE: No scoliosis or deformity SKIN: No rashes CENTRAL NERVOUS SYSTEM: Alert and oriented -3. No focal deficits, tone is normal in all 4 extremities. PSYCHIATRIC: Alert and oriented -3. Appropriate affect. Intact judgment and insight. - Labs CBC & Chem 7: 05/21/17 06:31 05/23/17 06:53 Labs: Abnormal Lab Results - Last 24 Hours (Table) 05/23/17 Range/Units 06:53 BUN 35 H (9-20) mg/dL Glucose 106 H (74-99) mg/dL Uric Acid 2.6 L (3.5-8.5) mg/dL Microbiology - Last 24 Hours (Table) 05/19/17 10:30 Blood Culture - Preliminary Blood No Growth after 96 hours 05/21/17 14:38 Blood Culture - Preliminary Blood No Growth after 24 hours 05/21/17 14:06 Blood Culture - Preliminary Blood No Growth after 24 hours Assessment and Plan Plan: Assessment: #1. Large right chylothorax, rapid progression from 05/14/2017 to 05/19/2017, on presentation chest x-ray on 05/19/2017 shows near complete opacification of the right lung due to the pleural effusion, with secondary dyspnea. Patient is status post right pigtail chest tube placement on 05/20/2017 with drainage of a large (over 2 L in the 24 hours) milky white, yellowish pleural fluid, consistent with chyle #2. Non-Hodgkin's lymphoma, recent diagnosis. Patient has been initiated on chemotherapy per medical oncology today with a combination of Cytoxan, Adriamycin,Emend, Elitek, Rituxan and high dose steroids with prednisone 100 mg daily 5 days. #3. Febrile illness, rule out sepsis, patient was empirically started on cefepime and vancomycin, blood cultures were obtained and sent, will obtain sputum specimen, if able, patient is not producing any sputum. Influenza screen was negative. Blood cultures are negative so far. No further episodes of fever. Patient does have nightly sweats, likely secondary to his diagnosis of non-Hodgkin's lymphoma. #4. Acute kidney injury. Possibly related to ATN, vancomycin, or chemotherapy, improved with IV hydration. On 05/22/2017 his BUN is 34, and creatinine is 1.13. Recovered, on 05/23/2017 BUN is 35, creatinine is 0.96. #5. Elevated d-dimer, of 4.41, CTA chest negative for any evidence of pulmonary embolism. #6. Placement of Port-a-Cath in the right upper chest on 05/14/2017, with no complications #7. Essential hypertension Plan: Patient is afebrile, vital signs are stable, blood cultures showed no growth. Clinically patient lobe looks nontoxic, reports feeling better, breathing easier. Was able to ambulate in the hallway, tolerated it well. Renal profile recovered with IV hydration. From pulmonary/critical care standpoint, patient can be discharged home today. Follow-up appointment with Dr. Nathan in one week I performed a history & physical examination of the patient and discussed their management with my nurse practitioner, Nilsa Paredes. I reviewed the nurse practitioner's note and agree with the documented findings and plan of care. Lung sounds are diminished over right lung, clear on the left. The findings and the impression was discussed with the patient. I attest to the documentation by the nurse practitioner. Time with Patient: Less than 30
[2017-05-23 13:25] VITALS: BMI 33.2
[2017-05-23 15:39] VITALS: BP 131/76; PULSE 70; RESP 16
--- NOTE | 2017-05-23 17:09 | PN ---
PROGRESS NOTE DATE OF SERVICE: 05/23/2017 REASON FOR FOLLOWUP: Fever. INTERVAL HISTORY: The patient is afebrile. He has been breathing comfortably on room air. No chest pain. No cough. No nausea or vomiting. No abdominal pain. Overall output in the drainage catheter has decreased. No diarrhea. PHYSICAL EXAMINATION: Blood pressure is 131/76 with a pulse of 70, temperature 97.8. He is 98% on room air. General description is a middle-aged male up in the bed in no distress. RESPIRATORY SYSTEM: Unlabored breathing. Some decreased breath sounds in the bases. No wheeze. HEART: S1, S2. Regular rate and rhythm. ABDOMEN: Soft. No tenderness. LABS: White count normal at 8.0 with a BUN of 35, creatinine 0.96. Culture has been negative. DIAGNOSTIC IMPRESSION AND PLAN: Patient with episode of fever with no clear focus of infection. All his cultures have been negative. The patient has no elevated white count. Questionably related to his underlying lymphoma. Antibiotic can be safely discontinued with close outpatient followup. MMODL / IJN: [id number] /
--- NOTE | 2017-05-23 17:32 | P.PN ---
Subjective Progress Note Date: 05/23/17 The patient continues to feel comfortable in terms of his breathing since the chest tube placement. So far he has not noted any significant side effects from the chemotherapy Objective - Vital Signs Vital signs: Vital Signs Temp 97.8 F 05/23/17 07:24 Pulse 70 05/23/17 11:00 Resp 16 05/23/17 11:00 BP 131/76 05/23/17 11:00 Pulse Ox 98 05/23/17 11:00 Intake & Output 05/22/17 05/23/17 05/23/17 18:59 06:59 18:59 Intake Total 710 1590 Output Total 950 450 500 Balance -240 1140 -500 Weight 99 kg Intake: Intake, IV Titration 710 1000 Amount Cefepime 2 gm In Sodium 50 Chloride 0.9% 50 ml @ 100 mls/hr IVPB Q12HR@0000, 1200 [facility] Rx#:[id number] Sodium Chloride 0.9% 1, 410 750 000 ml @ 75 mls/hr IV . [id number] [facility] Rx#:[id number] Vancomycin 1,500 mg In 250 250 Sodium Chloride 0.9% 250 ml @ 125 mls/hr IVPB Q12HR [facility] Rx#:[id number] Oral 590 Output: Chest Tube Drainage 950 450 500 Pleural Catheter Right 950 450 500 Lower Posterior Chest Other: Voiding Method Toilet Toilet Toilet # Voids 2 - Constitutional General appearance: Present: no acute distress - EENT Eyes: Present: PERRLA ENT: Present: normal oropharynx - Respiratory Respiratory: right: diminished - Cardiovascular Rhythm: regular Heart sounds: normal: S1, S2 - Gastrointestinal General gastrointestinal: Present: normal bowel sounds, soft - Integumentary Integumentary: Present: normal - Neurologic Neurologic: Present: CNII-XII intact - Musculoskeletal Musculoskeletal: Present: strength equal bilaterally - Psychiatric Psychiatric: Present: A&O x's 3, appropriate affect - Labs CBC & Chem 7: 05/21/17 06:31 05/23/17 06:53 Labs: Abnormal Lab Results - Last 24 Hours (Table) 05/23/17 Range/Units 06:53 BUN 35 H (9-20) mg/dL Glucose 106 H (74-99) mg/dL Uric Acid 2.6 L (3.5-8.5) mg/dL Microbiology - Last 24 Hours (Table) 05/21/17 14:38 Blood Culture - Preliminary Blood No Growth after 48 hours 05/21/17 14:06 Blood Culture - Preliminary Blood No Growth after 48 hours 05/19/17 10:30 Blood Culture - Preliminary Blood No Growth after 96 hours Assessment and Plan (1) Chylothorax on right Narrative/Plan: Physical exam it continues to be satisfactory. He he has not had recurrence of symptoms since chest tube placement. He will continue to drain as needed. Dietary recommendations have been made. Current Visit: Yes Status: Acute Priority: High Code(s): I89.8 - OTH NONINFECTIVE DISORDERS OF LYMPHATIC VESSELS AND NODES SNOMED Code(s): 74860380 (2) Lymphoma Narrative/Plan: The patient is a day 3 of cycle 1. So far he has not had any major side effects. Blood counts are satisfactory. No evidence of tumor lysis. From our standpoint patient can be discharged home. Possible side effects, precautions, and management in the outpatient setting were discussed in detail. He will follow up in the office next week. prescription for Zofran given Current Visit: No Status: Acute Code(s): C85.90 - NON-HODGKIN LYMPHOMA, UNSPECIFIED, UNSPECIFIED SITE SNOMED Code(s): 896886220
== END 2017-05-23 17:23 | disposition home or self-care (01) | DRG 186 ==
LOC: EC 09:47 → 5ONC 13:25
PROVIDERS: ADMIT Internal Medicine; ATTEND Internal Medicine
PROC: 0W9930Z Drainage of Right Pleural Cavity with Drainage Device, Percutaneous Approach (ICD-10-PCS; principal; 2017-05-20)
DX: J94.0 Chylous effusion (principal); N17.0 Acute kidney failure with tubular necrosis; A41.9 Sepsis, unspecified organism; C83.38 Diffuse large B-cell lymphoma, lymph nodes of multiple sites; J98.19 Other pulmonary collapse; I10 Essential (primary) hypertension; E66.9 Obesity, unspecified; E78.5 Hyperlipidemia, unspecified; N40.0 Benign prostatic hyperplasia without lower urinary tract symptoms; Z68.33 Body mass index [BMI] 33.0-33.9, adult; Z79.899 Other long term (current) drug therapy
CPT/HCPCS: 32551; 36415; 71045; 71046; 71275; 76604; 76942; 80048; 80053; 82550; 82553; 82664; 83735; 83880; 84100; 84478; 84484; 84550; 85025; 85379; 85610; 85730; 87040; 87502; 93005; 93306; 94760; 99285

== ENCOUNTER → 2017-05-30 | Outpatient (CLI) | payer BC ==
--- NOTE | 2017-05-30 11:46 | US ---
EXAMINATION TYPE: US venous doppler duplex LE RT DATE OF EXAM: 05/30/2017 10:52 AM COMPARISON: NONE CLINICAL HISTORY: pain and swelling right lower R22.91. SIDE PERFORMED: Right TECHNIQUE: The lower extremity deep venous system is examined utilizing real time linear array sonog lisa with graded compression, doppler sonography and color-flow sonography. VESSELS IMAGED: External Iliac Vein (EIV) Common Femoral Vein Deep Femoral Vein Greater Saphenous Vein * Femoral Vein Popliteal Vein Small Saphenous Vein * Proximal Calf Veins (* superficial vessels) Right Leg: Negative for DVT Preliminary results phoned to Carmita at Dr. Nathan's office immediately following test. Grayscale, color doppler, spectral doppler imaging performed of the deep veins of the right lower ext remity. There is normal flow, compressibility, vascular waveforms. IMPRESSION: No ultrasound evidence for acute DVT in the right lower extremity.
== END | disposition home or self-care (01) ==
LOC: RADUSWWP 10:18
PROVIDERS: ATTEND Internal Medicine Critical Care Medicine
DX: R22.41 Localized swelling, mass and lump, right lower limb (principal)

== ENCOUNTER → 2017-07-19 | Outpatient (CLI) | payer BC ==
--- NOTE | 2017-07-22 07:47 | PE ---
EXAMINATION TYPE: PET CT fusion skull to thigh DATE OF EXAM: 07/19/2017 COMPARISON: Prior PET/CT May 10, 2017 HISTORY: Lymphoma progress study, completed chemotherapy July 07, 2017 . Diagnosed on biopsy left n brooke May 07, 2017 TECHNIQUE: Following the intravenous administration of 11.943 mCi of F-18 FDG, whole body images are performed from the skull base to the midthigh. Images are reviewed on the computer in the coronal, axial, and sagittal planes. Reconstructed rotating images are created on independent workstation and reviewed on the computer. A noncontrast CT is performed in conjunction with the PET scan. SCAN: Subsequent Scan FINDINGS: SKULL BASE AND NECK: Marked interval improvement in size of lymph nodes without abnormal hypermetabo lic uptake identified currently. Persistent enlarged left supraclavicular lymph nodes are present but diminished in size. CHEST, MEDIASTINUM, AND HILAR REGION: There is new right internal jugular Mediport catheter with tip at cavoatrial junction. There is persistent tiny right pleural effusion in the base significantly imp roved from prior. Abnormal hypermetabolic thoracic and left axillary lymph nodes do not show suspicio us hypermetabolic uptake currently. There are markedly improved in size without definitive greater th an 1 cm lymph nodes identified on current study. ABDOMEN AND PELVIS: No suspicious hypermetabolic uptake is seen on current study. Some suspicious sli ghtly enlarged lymph nodes remain present between pancreas and left adrenal gland. There are persiste nt abnormal mesenteric lymph nodes, for reference anterior lymph node axial image 175 measures 2.4 x 1.7 cm markedly improved in size from prior study where massive adenopathy was present. OSSEOUS STRUCTURES: No suspicious focal increased hypermetabolic uptake is seen. Mild diffuse uptake is presumed posttreatment response. OTHER CT: Cardiomegaly is redemonstrated. There are small size fat umbilical hernia again seen. Sigmoid colonic diverticulosis is redemonstrated. Prostate gland is upper limits of normal in size with central zone calcification. Some facet arthropathy lower lumbar levels is redemonstrated. IMPRESSION: Positive treatment response without abnormal hypermetabolic uptake identified currently. Marked improvement in size of adenopathy with some persistent enlarged but significantly improved lef t neck/supraclavicular lymph nodes and abdominal lymph nodes remaining present. EORTC response criteria: Complete Metabolic Response (Max Suv <2.5) Primary Tumor Response WHO Category: IN - At least 30% Decrease in longest recordable dimension of tumor.
== END | disposition home or self-care (01) ==
LOC: RADPETMAIN 10:35
PROVIDERS: ATTEND Internal Medicine Hematology & Oncology
DX: C83.32 Diffuse large B-cell lymphoma, intrathoracic lymph nodes (principal)
CPT/HCPCS: 78815; A9552

== ENCOUNTER → 2017-10-09 | Outpatient (CLI) | payer BC ==
[2017-10-09 08:56] LABS: Anion Gap 12 mmol/L; Blood Urea Nitrogen 15 mg/dL (9-20); Carbon Dioxide 30 mmol/L (22-30); Chloride 105 mmol/L (98-107); Potassium 3.8 mmol/L (3.5-5.1); Sodium 147 mmol/L (137-145)
== END | disposition home or self-care (01) ==
LOC: LABWHC1 08:19
PROVIDERS: ATTEND Internal Medicine Interventional Cardiology
DX: I10 Essential (primary) hypertension (principal)
CPT/HCPCS: 36415; 80051; 82565; 84520

== ENCOUNTER → 2017-10-11 | Outpatient (CLI) | payer BC ==
--- NOTE | 2017-10-13 08:40 | PE ---
EXAMINATION TYPE: PET CT fusion skull to thigh DATE OF EXAM: 10/11/2017 COMPARISON: Chest CT June 02, 2017. CT abdomen and pelvis April 23, 2017. Prior PET/CT July and older PET/CT studies. HISTORY: Lymphoma right neck progress study completed chemotherapy September 08, 2017 , original biopsy Ja nuary 2017 TECHNIQUE: Following the intravenous administration of 13.96 mCi of F-18 FDG, whole body images are performed from the skull base to the midthigh. Images are reviewed on the computer in the coronal, a xial, and sagittal planes. Reconstructed rotating images are created on independent workstation and reviewed on the computer. A noncontrast CT is performed in conjunction with the PET scan. SCAN: Subsequent Scan FINDINGS: SKULL BASE AND NECK: No recurrent enlarged hypermetabolic lymph nodes are identified. CHEST, MEDIASTINUM, AND HILAR REGION: No recurrent enlarged hypermetabolic lymph nodes are seen. ABDOMEN AND PELVIS: No recurrent enlarged hypermetabolic lymph nodes are seen. Normal excretion colle cting systems and bladder is identified. Mesenteric fat stranding with prominent lymph nodes remains present few are abnormally enlarged, for reference 1 measures 1.7 x 1.6 cm axial image 165 and remain s a metabolic posteriorly and one anteriorly measures 2.3 x 1.6 cm axial image 163. No significant ch meghna in size from most recent PET/CT. OSSEOUS STRUCTURES: No new suspicious hypermetabolic uptake is present. OTHER CT: Large mucous retention cyst or polyp in inferior right maxillary sinus is redemonstrated. There is stable right internal jugular Mediport catheter. There is persistent cardiomegaly with tiny pericardial effusion. No recurrent pleural effusion is see n. Bilateral gynecomastia is redemonstrated. There are persistent prominent few enlarged mesenteric lymph nodes with surrounding fat stranding in the mid abdomen but not suspicious hypermetabolic uptake, no significant change from most recent PET/ CT. There is moderate-sized fat-containing umbilical hernia. Diverticula of the sigmoid colon are redemonstrated. Central zone calcifications are seen in prostate gland that remains upper limits of normal in size. Some facet arthropathy lower lumbar levels is redemonstrated. IMPRESSION: No recurrent enlarged hypermetabolic lymph nodes are identified to suggest lymphoma recur rence. EORTC response criteria: Complete Metabolic Response. MaxSUV < 2.5 or equivalent to background
== END | disposition home or self-care (01) ==
LOC: RADPETMAIN 09:25
PROVIDERS: ATTEND Internal Medicine Hematology & Oncology
DX: C83.32 Diffuse large B-cell lymphoma, intrathoracic lymph nodes (principal)
CPT/HCPCS: 78815; A9552

== ENCOUNTER → 2017-11-20 | Outpatient (CLI) | payer BC ==
[2017-11-20 09:47] LABS: Anion Gap 7 mmol/L; Blood Urea Nitrogen 15 mg/dL (9-20); Carbon Dioxide 35 mmol/L (22-30); Chloride 102 mmol/L (98-107); Potassium 3.6 mmol/L (3.5-5.1); Sodium 144 mmol/L (137-145)
== END | disposition home or self-care (01) ==
LOC: LABWHC1 08:15
PROVIDERS: ATTEND Internal Medicine Interventional Cardiology
DX: I10 Essential (primary) hypertension (principal)
CPT/HCPCS: 36415; 80051; 82565; 84520

== ENCOUNTER → 2018-03-06 | Outpatient (CLI) | payer BC ==
[2018-03-06 15:53] LABS: Anion Gap 7.4 mmol/L (4.00-12.00); Carbon Dioxide 30.6 mmol/L (21.6-31.8); Potassium 3.7 mmol/L (3.5-5.5)
== END ==
LOC: LABWHC1 09:31
PROVIDERS: ATTEND Internal Medicine Interventional Cardiology
DX: E87.6 Hypokalemia (principal)
CPT/HCPCS: 36415; 80051; 82565; 84520

== ENCOUNTER → 2018-04-11 | Outpatient (CLI) | payer BC ==
--- NOTE | 2018-04-12 14:50 | PE ---
Nuclear medicine PET/CT HISTORY: Lymphoma, subsequent Patient received 11.6 mCi F-18 FDG intravenously in delayed scanning was performed from the skull bas e to the mid thighs. Localization and attenuation correction CT scan was performed. Correlation to prior nuclear medicine PET/CT 10/11/2017 Neck and chest: Right-sided Port-A-Cath is present in the right pectoral region, catheter courses to the level of the right atrium, cavoatrial junction. There is no mediastinal, axillary, or hilar adeno fabio. No supraclavicular or cervical adenopathy. No suspicious hypermetabolic uptake. The lungs show no mass. Heart is enlarged, stable. Abdomen pelvis: Liver shows no mass. No retroperitoneal adenopathy, ascites, and the aorta shows norm al caliber. Ill-defined soft tissue within the mesentery is present with a focal borderline enlarged node present on axial image 170 which is decreased in size as compared to prior, the mesenteric soft tissue seen on prior is less conspicuous. No associated hypermetabolic uptake. There are prostate brittney cifications present. No pelvic adenopathy or free fluid. Osseous structures are within normal limits. IMPRESSION: Recurrence is not evident, there is improvement as described. Additional findings above.
== END | disposition home or self-care (01) ==
LOC: RADPETMAIN 07:38
PROVIDERS: ATTEND Internal Medicine Hematology & Oncology
DX: C83.32 Diffuse large B-cell lymphoma, intrathoracic lymph nodes (principal)
CPT/HCPCS: 78815; A9552

== ENCOUNTER → 2018-10-10 | Outpatient (CLI) | payer BC ==
--- NOTE | 2018-10-12 16:14 | PE ---
EXAMINATION TYPE: PET CT fusion skull to thigh DATE OF EXAM: 10/10/2018 COMPARISON: PET/CT dated 04/11/2018, 10/21/2017 and 07/19/2017. HISTORY: Lymphoma. Follow-up exam. Surveillance. Prior chemotherapy in September 2017. TECHNIQUE: Following the intravenous administration of 11.302 mCi of F-18 FDG, whole body images are performed from the skull base to the midthigh. Images are reviewed on the computer in the coronal, axial, and sagittal planes. Reconstructed rotating images are created on independent workstation and reviewed on the computer. A localization and attenuation correction CT is performed in conjunction with the PET scan. SCAN: Subsequent FINDINGS: Abdominal background: 3.1 Mediastinal background: 1.9 SKULL BASE AND NECK: Asymmetric uptake is seen within the right palatine tonsil with a maximum SUV o f 4.03. Small calculi are also seen within the tonsil. CHEST, MEDIASTINUM, AND HILAR REGION: No suspicious hypermetabolic uptake. ABDOMEN AND PELVIS: No suspicious hypermetabolic uptake. OSSEOUS STRUCTURES: No suspicious hypermetabolic uptake. OTHER CT: There has been interval worsening of the right maxillary paranasal sinus disease with moder ate mucosal thickening and approximately 2 cm mucosal retention cyst on the right. Mild mucosal thick ening is also seen of the ethmoid and left maxillary sinuses. Mastoid air cells are well aerated. Mil d degenerative disc disease of the cervical spine is seen. 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 Heart is mildly enlarged. No mediastinal adenopathy is seen. Small hiatal hernia is present. Mild degenerative changes of the thoracic and lumbar spine. Gallbladder is elonga lala without radiopaque calculi or right upper quadrant fat stranding. Stable low-density nodule the r ight adrenal gland measures 1.1 cm and has an average Hounsfield unit of 14, likely related to a lipi d rich adenoma. No nephrolithiasis. No dilated bowel. Heart is again heterogenous with central zone c alcifications. There is redemonstration of a hypermetabolic ill-defined area of central mesenteric fa t stranding surrounding mesenteric vessels and a single enlarged node that is stable measuring 1.4 cm in short axis marked on image 171. Fat stranding beginning on image 164 and extending to image 171. IMPRESSION: 1. Hypermetabolic central mesenteric lymph node with multiple surrounding nonenlarged central mesente annita lymph nodes and fat stranding that are unchanged from 04/11/2018. No active disease is seen at thi s time. No additional site of new adenopathy is seen within the chest, abdomen, or pelvis. No splenom egaly. 2. Asymmetric uptake within the right palatine tonsil. Lymphomatous involvement is not suspected hernández rachel correlate with direct visualization to evaluate for inflammatory process.
== END | disposition home or self-care (01) ==
LOC: RADPETMAIN 07:38
PROVIDERS: ATTEND Internal Medicine Hematology & Oncology
DX: C83.32 Diffuse large B-cell lymphoma, intrathoracic lymph nodes (principal); R94.8 Abnormal results of function studies of other organs and systems; Z92.21 Personal history of antineoplastic chemotherapy
CPT/HCPCS: 78815; A9552

== ENCOUNTER → 2018-11-18 | Outpatient (CLI) | payer BC ==
[2018-11-18 16:38] LABS: African American GFR (CKD) 97.1 (60.0-200.0); Albumin 4.3 g/dL (3.80-4.90); Albumin/Globulin Ratio 2.39 (1.60-3.17); Anion Gap 10.8 mmol/L (4.00-12.00); Calcium 9.7 mg/dL (8.7-10.3); Carbon Dioxide 30.2 mmol/L (21.6-31.8); Globulin 1.8 g/dL (1.6-3.3); LDL Cholesterol,Calculated 154.8 mg/dL (0.0-131.0); Potassium 3.3 mmol/L (3.5-5.5); Total Bilirubin 0.6 mg/dL (0.2-1.2); Total Protein 6.1 g/dL (6.2-8.2); VLDL Calculation 21.2 mg/dL (5.00-40.00)
== END | disposition home or self-care (01) ==
LOC: LABWHC1 08:39
PROVIDERS: ATTEND Internal Medicine Interventional Cardiology
DX: E78.2 Mixed hyperlipidemia (principal)
CPT/HCPCS: 36415; 80053; 80061

== ENCOUNTER → 2019-12-25 | Outpatient (CLI) | payer BC ==
--- NOTE | 2019-12-26 13:43 | PE ---
EXAMINATION TYPE: PET CT fusion skull to thigh DATE OF EXAM: 12/25/2019 COMPARISON: CT abdomen 04/23/2017 Prior PET/CT: 10/10/2018 HISTORY: Lymphoma TECHNIQUE: Following the intravenous administration of 9.62 mCi of F-18 FDG, whole body images are p erformed from the skull base to the midthigh. Images are reviewed on the computer in the coronal, ax ial, and sagittal planes. Reconstructed rotating images are created on independent workstation and r eviewed on the computer. A localization and attenuation correction CT is performed in conjunction w ith the PET scan. DLP: 515.65 mGycm SCAN: Subsequent Blood glucose: 116 mg/dL Average Mediastinum SUV: 1.75 Average Liver SUV: 2.3 FINDINGS: NECK: No suspicious uptake THORAX: No suspicious uptake ABDOMEN: No suspicious uptake. PELVIS: No suspicious uptake OSSEOUS STRUCTURES: No suspicious uptake LOCALIZATION CT: No suspicious adenopathy is evident. COMPARISON: Previous inflammatory changes in the mid mesentery are nearly resolved from comparison. S eries 3 image 170. Most prominent lymph node has a transverse dimension of 1.2 cm. Series 3 image 172 . SUV value 1.31. This is decreased from 1.4 cm. IMPRESSION: 1. No suspicious radiotracer uptake to suggest recurrent lymphoma. 2. Resolving inflammatory changes mid mesentery. A 1.2 cm lymph node is diminished in size from previ ous exam.
== END | disposition home or self-care (01) ==
LOC: RADPETMAIN 07:39
PROVIDERS: ATTEND Internal Medicine Hematology & Oncology
DX: K65.8 Other peritonitis (principal); C83.32 Diffuse large B-cell lymphoma, intrathoracic lymph nodes
CPT/HCPCS: 78815; A9552

== ENCOUNTER → 2020-02-25 | Outpatient (CLI) | payer BC | END | disposition home or self-care (01) | LOC: LABWHC1 07:58 | PROVIDERS: ATTEND Internal Medicine Interventional Cardiology | DX: I10 Essential (primary) hypertension (principal) | CPT/HCPCS: 36415; 84132 ==

== ENCOUNTER → 2020-12-22 | Outpatient (CLI) | payer BC ==
--- NOTE | 2020-12-22 12:08 | PE ---
EXAMINATION TYPE: PET CT fusion skull to thigh DATE OF EXAM: 12/22/2020 COMPARISON: Prior PET/CT December 05, 2019 HISTORY: Non-Hodgkin lymphoma originally diagnosed right neck biopsy in May 2017 . Results invo lvement above and below diaphragm. Patient completed chemotherapy October 2017 TECHNIQUE: Following the intravenous administration of 11.35 mCi of F-18 FDG, whole body images are performed from the skull base to the midthigh. Images are reviewed on the computer in the coronal, a xial, and sagittal planes. Reconstructed rotating images are created on independent workstation and reviewed on the computer. A localization and attenuation correction CT is performed in conjunction with the PET scan. Blood glucose level equals 164 SCAN: Subsequent Scan FINDINGS: MEAN SUV MEDIASTINUM: 0.8 MEAN SUV LIVER: 2.04 SKULL BASE AND NECK: No recurrent enlarged or hypermetabolic lymph nodes. CHEST, MEDIASTINUM, AND HILAR REGION: No recurrent enlarged or hypermetabolic lymph nodes. ABDOMEN AND PELVIS: Recurrent hypermetabolic prominent lymph nodes in the mid abdominal mesentery. Fo r reference there is 2.9 x 1.8 cm lymph node axial image 173 and some adjacent prominent and slightly enlarged mildly hypermetabolic lymph nodes with mild erlin mesentery appearance. This is new from mo st recent CT. Max SUV is 4.37 at this level . OSSEOUS STRUCTURES: No new areas of abnormal hypermetabolic uptake. OTHER CT: A mucous retention cyst or polyp in inferior right maxillary sinus is redemonstrated. There is persistent cardiomegaly with low lung volumes. No recurrent pleural effusion is seen. Bilate ral flame-shaped subareolar gynecomastia is redemonstrated. There is small size fat-containing umbilical hernia. There is diffuse fatty infiltration of liver is noted. Diverticula of the left and sigmoid colon are redemonstrated. Central zone calcifications are seen in prostate gland that remains upper limits of normal in size. Some facet arthropathy lower lumbar levels is redemonstrated. IMPRESSION: Local neoplastic recurrence mid abdominal mesentery felt present as detailed above.
== END | disposition home or self-care (01) ==
LOC: RADPETMAIN 08:07
PROVIDERS: ATTEND Internal Medicine Hematology & Oncology
DX: K42.9 Umbilical hernia without obstruction or gangrene (principal); K76.0 Fatty (change of) liver, not elsewhere classified; K57.30 Diverticulosis of large intestine without perforation or abscess without bleeding; N50.89 Other specified disorders of the male genital organs; Z85.72 Personal history of non-Hodgkin lymphomas
CPT/HCPCS: 78815; A9552

== ENCOUNTER → 2021-03-23 | Outpatient (CLI) | payer BC ==
--- NOTE | 2021-03-23 12:22 | PE ---
EXAMINATION TYPE: PET CT fusion skull to thigh DATE OF EXAM: 03/23/2021 COMPARISON: Prior PET/CT December 22, 2020 and older studies. 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 Yan espinosa completed chemotherapy October 2017. TECHNIQUE: Following the intravenous administration of 9.92 mCi of F-18 FDG, whole body images are p erformed from the skull base to the midthigh. Images are reviewed on the computer in the coronal, ax ial, and sagittal planes. Reconstructed rotating images are created on independent workstation and r eviewed on the computer. A localization and attenuation correction CT is performed in conjunction w ith the PET scan. Blood glucose level equals 166. SCAN: Subsequent Scan FINDINGS: MEAN SUV MEDIASTINUM: 1.04 MEAN SUV LIVER: 2.11 SKULL BASE AND NECK: No recurrent enlarged or hypermetabolic lymph nodes. CHEST, MEDIASTINUM, AND HILAR REGION: No recurrent enlarged or hypermetabolic lymph nodes. ABDOMEN AND PELVIS: Persistent hypermetabolic prominent lymph nodes in the mid abdominal mesentery. P rior visualized 2.9 x 1.8 cm lymph node axial image 173 with max SUV 4.37 post recent PET/CT is redem onstrated fairly stable measuring 2.9 x 2.0 cm axial image 170 with Max SUV 4.84 on the current study . Stable prominent mildly hypermetabolic adjacent lymph nodes. Remainder of abdomen and pelvis shows no new enlarged or hypermetabolic adenopathy. OSSEOUS STRUCTURES: No new areas of abnormal hypermetabolic uptake. OTHER CT: A mucous retention cyst or polyp in inferior right maxillary sinus is redemonstrated. There is persistent cardiomegaly with low lung volumes. No recurrent pleural effusion is seen. There is small size fat-containing umbilical hernia. There is diffuse fatty infiltration of liver is redemonstrated. A few Diverticula of the sigmoid colon are redemonstrated. Central zone calcifications are seen in prostate gland that remains mildly enlarged. Bladder poorly d istended with moderate to severe concentric wall thickening presumed related to outlet obstruction fr om BPH Some facet arthropathy lower lumbar levels is redemonstrated. IMPRESSION: Overall stable findings from most recent PET/CT; no interval progression or new areas of adenopathy.
== END ==
LOC: RADPETMAIN 07:31
PROVIDERS: ATTEND Internal Medicine Hematology & Oncology
DX: C83.32 Diffuse large B-cell lymphoma, intrathoracic lymph nodes (principal); Z92.21 Personal history of antineoplastic chemotherapy
CPT/HCPCS: 78815; A9552

== ENCOUNTER → 2021-08-10 | Outpatient (CLI) | payer BC ==
--- NOTE | 2021-08-12 20:52 | PE ---
EXAMINATION TYPE: PET CT fusion skull to thigh DATE OF EXAM: 08/10/2021 COMPARISON: Prior PET/CT March 23, 2021 and older studies HISTORY: Non-Hodgkin large B cell lymphoma originally diagnosed right neck biopsy in May 2017. Re currence in the mesentery 2020. TECHNIQUE: Following the intravenous administration of 9.83 mCi of F-18 FDG, whole body images are p erformed from the skull base to the midthigh. Images are reviewed on the computer in the coronal, ax ial, and sagittal planes. Reconstructed rotating images are created on independent workstation and r eviewed on the computer. A localization and attenuation correction CT is performed in conjunction w ith the PET scan. Blood glucose level equals 154 SCAN: Subsequent Scan FINDINGS: MEAN SUV MEDIASTINUM: 0.78 MEAN SUV LIVER: 2.16 SKULL BASE AND NECK: No recurrent enlarged or hypermetabolic lymph nodes. CHEST, MEDIASTINUM, AND HILAR REGION: No recurrent enlarged or hypermetabolic lymph nodes. ABDOMEN AND PELVIS: Persistent hypermetabolic prominent lymph nodes in the mid abdominal mesentery. T here is persistent stable 2.9 x 1.7 cm lymph node axial image 163 with max SUV 5.26 versus 4.84 on pr ior study. Adjacent slightly enlarged mildly hypermetabolic lymph nodes are grossly stable in size an d max SUV from most recent study. Remainder of abdomen and pelvis shows no new enlarged or hypermetabolic adenopathy. OSSEOUS STRUCTURES: No new areas of abnormal hypermetabolic uptake. OTHER CT: A mucous retention cyst or polyp in inferior right maxillary sinus is redemonstrated. There is persistent cardiomegaly with low lung volumes. No recurrent pleural effusion is seen. There is small size fat-containing umbilical hernia. There is diffuse fatty infiltration of liver re demonstrated. A few Diverticula of the sigmoid colon are redemonstrated. Central zone calcifications are seen in prostate gland that remain mildly enlarged. Bladder poorly di stended with moderate to severe concentric wall thickening presumed related to outlet obstruction fro m BPH. Some facet arthropathy lower lumbar levels is redemonstrated. IMPRESSION: Overall stable findings from most recent PET/CT; no interval progression or new areas of adenopathy.
== END | disposition home or self-care (01) ==
LOC: RADPETMAIN 07:40
PROVIDERS: ATTEND Internal Medicine Hematology & Oncology
DX: C83.32 Diffuse large B-cell lymphoma, intrathoracic lymph nodes (principal)
CPT/HCPCS: 78815; A9552

== ENCOUNTER → 2022-02-22 | Outpatient (CLI) | payer BC ==
--- NOTE | 2022-02-23 11:04 | PE ---
EXAMINATION TYPE: PET CT fusion skull to thigh DATE OF EXAM: 02/22/2022 CLINICAL INDICATION:Male, 61 years old with history of lymphoma; TECHNIQUE: Following the intravenous administration of 11.16 mCi of F-18 FDG, whole body images are performed from the skull base to the midthigh. Images are reviewed on the computer in the coronal, axial, and sagittal planes. Reconstructed rotating images are created on independent workstation and reviewed on the computer. A non-contrast CT is performed in conjunction with the PET scan. Glucose level 138 mg/dL COMPARISON: CT 06/02/2017, PET/CT 08/10/2021 and earlier, FINDINGS: Mediastinal SUV mean is 1.0. Hepatic parenchyma SUV mean is 1.8. SKULL BASE AND NECK: No suspicious FDG activity. CHEST, MEDIASTINUM, AND HILAR REGION: Right axillary lymph nodes with increased FDG activity with max SUV 2.6, previously 1.9. No additional suspicious activity. ABDOMEN AND PELVIS: Multiple soft tissue densities within the mesentery of the abdomen measuring up t o 2.5 x 1.4 cm, previously 2.9 x 1.7 cm and max SUV of 4.0, previously 5.8. OSSEOUS STRUCTURES: No suspicious FDG activity. OTHER CT: Atherosclerosis of the arterial vasculature including the carotid bifurcations. The heart i s moderately enlarged for size. Few scattered colonic diverticula present. An umbilical hernia is pre sent. IMPRESSION: 1. Decreased but persistent FDG activity and a decrease in size of the lymphadenopathy consistent w ith partial positive response to therapy. 2. Increased FDG activity within the right axilla lymph nodes comparing to prior. Correlate for exam ination attention on follow-up imaging.
== END | disposition home or self-care (01) ==
LOC: RADXRMAIN 06:44
PROVIDERS: ATTEND Internal Medicine Hematology & Oncology
DX: C83.32 Diffuse large B-cell lymphoma, intrathoracic lymph nodes (principal)
CPT/HCPCS: 78815; A9552

== ENCOUNTER 2022-04-02 07:34 | Day surgery (SDC) | payer BC ==
[2022-03-26 11:01] VITALS: BMI 34.9
[~2022-04-02 07:34] MED LIST: LACTATED RINGERS 1,000 ML IV SCH
[2022-04-02] MEDS ORDERED: PROPOFOL 10 MG/ML 20 ML VIAL IV ONE (08:24)
[2022-04-02 08:26] VITALS: RESP 16; TEMP 97.6
--- NOTE | 2022-04-02 08:27 | P.GSHP ---
History of Present Illness H&P Date: 04/02/22 Chief Complaint: Colon cancer screening 62-year-old male here today for colonoscopy. Patient is unsure when his last colonoscopy was. Likewise patient is unsure if there were polyps or not. No family history of colon cancer. Patient personal history of lymphoma. Here for screening colonoscopy. Past Medical History Past Medical History: Cancer, Diabetes Mellitus, GI Bleed, Hyperlipidemia, Hypertension, Prostate Disorder Additional Past Medical History / Comment(s): Hx Lymphoma 05/2017, hx collapsed lung from fluid build up and GI bleed due to antibiotic 2017. BPH. History of Any Multi-Drug Resistant Organisms: None Reported Additional Past Surgical History / Comment(s): Right IJ Port-A-Cath placement on 05/14/2017, bone marrow aspirate on 05/14/2017, 2012 colonoscopy, anal fissure repair, ultrasound-guided left neck lymph node biopsy on 05/07/2017, ultrasound- guided placement of right pigtail catheter 05/20/2017. Past Anesthesia/Blood Transfusion Reactions: No Reported Reaction Past Psychological History: No Psychological Hx Reported Smoking Status: Never smoker Past Alcohol Use History: None Reported Past Drug Use History: None Reported - Past Family History Father Family Medical History: Cancer, Prostate Disorder Additional Family Medical History / Comment(s): Father had prostrate cancer. He had a mass in his chest. Mother Family Medical History: Hypertension, Vascular Disorder Additional Family Medical History / Comment(s): Mother of a aortic aneurysm dissection. Sister(s) Family Medical History: Asthma, Diabetes Mellitus, Hypertension Additional Family Medical History / Comment(s): Morbidly obese. Medications and Allergies Home Medications Medication Instructions Recorded Confirmed Type Ezetimibe [Zetia] 10 mg PO DAILY 03/26/22 04/02/22 History Losartan/Hydrochlorothiazide 1 tab PO DAILY 04/02/22 04/02/22 History [Losartan-Hctz 100-25 mg Tab] Metoprolol Succinate (ER) [Toprol 25 mg PO HS 04/02/22 04/02/22 History Xl] Metoprolol Succinate (ER) [Toprol 50 mg PO DAILY 04/02/22 04/02/22 History Xl] Potassium Chloride ER [K-Dur 20] 20 meq PO BID 04/02/22 04/02/22 History amLODIPine BESYLATE 5 mg PO BID 04/02/22 04/02/22 History metFORMIN HCL ER [Glucophage XR] 500 mg PO HS 04/02/22 04/02/22 History Allergies Allergy/AdvReac Type Severity Reaction Status Date / Time No Known Allergies Allergy Verified 04/02/22 07:55 Surgical - Exam Vital Signs Temp Pulse Resp BP Pulse Ox 97.6 F 82 16 136/80 95 04/02/22 07:54 04/02/22 07:54 04/02/22 07:54 04/02/22 07:54 04/02/22 07:54 Physical exam: General: Well-developed, well-nourished HEENT: Normocephalic, sclerae nonicteric Abdomen: Nontender, nondistended Extremities: No edema Neuro: Alert and oriented Assessment and Plan Assessment: Will proceed with colonoscopy at this time.
[2022-04-02 08:29] LABS: Glucose,Whole Blood 132 mg/dL (70-110)
--- NOTE | 2022-04-02 08:43 | P.PCN ---
Date of Procedure: 04/02/22 Procedure(s) Performed: PREOPERATIVE DIAGNOSIS: Colon cancer screening POSTOPERATIVE DIAGNOSIS: Transverse colon polyp, diverticulosis PROCEDURE: Colonoscopy with snare polypectomy ANESTHESIA: MAC SURGEON: Deepak Hernandez M.D. SPECIMENS: Polyp ENDOSCOPIC PROCEDURE: The patient was placed on the endoscopy table in the left decubitus position. The Olympus colonoscope was inserted into the anus and passed under direct visualization to the base of the cecum. The appendiceal orifice was visualized. From that point the scope was slowly withdrawn inspecting all surfaces carefully. There were no neoplastic inflammatory or polypoid lesions throughout the cecum and ascending colon. In the transverse colon a small polyp was seen and removed using the snare with cautery technique. The remainder of the transverse descending sigmoid and rectum appeared normal. There was mild left-sided diverticulosis. Digital rectal examination was normal. The patient was taken to the recovery room in stable condition per anesthesia guidelines. RECOMMENDATIONS: Await biopsy results. Repeat colonoscopy 5 years
[2022-04-02 08:52] VITALS: BP 113/71; PULSE 79
== END 2022-04-02 09:22 | disposition home or self-care (01) ==
LOC: ORWHC2ENDO 07:34
PROVIDERS: ATTEND Surgery
DX: Z12.11 Encounter for screening for malignant neoplasm of colon (principal); D12.3 Benign neoplasm of transverse colon; E11.9 Type 2 diabetes mellitus without complications; E78.5 Hyperlipidemia, unspecified; I10 Essential (primary) hypertension; N40.0 Benign prostatic hyperplasia without lower urinary tract symptoms; Z82.49 Family history of ischemic heart disease and other diseases of the circulatory system; Z83.3 Family history of diabetes mellitus; Z85.72 Personal history of non-Hodgkin lymphomas
CPT/HCPCS: 88305; 45385; J2704

== ENCOUNTER → 2022-12-13 | Outpatient (CLI) | payer BC ==
[2022-12-13 16:05] LABS: Chol/HDL Ratio 4.55 Ratio; LDL Cholesterol,Calculated 120.6 mg/dL (0.0-131.0)
[2022-12-13 16:06] LABS: ALT 42 U/L (10-49); AST 26 U/L (14-35); Albumin 4.5 d/dL (3.8-4.9); Albumin/Globulin Ratio 1.96 Ratio (1.60-3.17); Alkaline Phosphatase 63 U/L (41-126); BUN/Creat Ratio 15.89 Ratio (12.00-20.00); Blood Urea Nitrogen 14.3 mg/dL (9.0-27.0); Calcium 9.9 mg/dL (8.7-10.3); Chloride 102 mmol/L (96-109); Globulin 2.3 d/dL (1.6-3.3); Glucose 141 mg/dL (70-110); Potassium 3.2 mmol/L (3.5-5.5); Sodium 143 mmol/L (135-145); Total Bilirubin 0.4 mg/dL (0.3-1.2); Total Protein 6.8 d/dL (6.2-8.2)
== END | disposition home or self-care (01) ==
LOC: LABWHC1 08:44
PROVIDERS: ATTEND Nurse Practitioner Adult Health
DX: I10 Essential (primary) hypertension (principal); E78.2 Mixed hyperlipidemia; E11.9 Type 2 diabetes mellitus without complications
CPT/HCPCS: 36415; 80053; 80061; 83036

== ENCOUNTER → 2023-02-27 | Outpatient (CLI) | payer BC ==
--- NOTE | 2023-02-27 10:02 | XR ---
EXAMINATION TYPE: XR foot complete LT DATE OF EXAM: 02/27/2023 9:45 AM INDICATION: Patient age:Male; 62 years old; Reason for study: M79.675; [facility]. COMPARISON: None TECHNIQUE: The left foot was examined in the AP, oblique, and lateral projections. FINDINGS: No evidence of any acute osseous pathology. No osseous erosions. No evidence of soft tissue swelling. Mild joint space narrowing with sclerosis involving the first MTP joint. No spurring. No radiopaque foreign body. IMPRESSION: 1. No evidence of acute fracture. 2. Minimal osteoarthritic change of the first MTP joint.
--- NOTE | 2023-02-27 10:52 | XR ---
EXAMINATION TYPE: XR hand complete RT, XR finger RT DATE OF EXAM: 02/27/2023 9:45 AM CLINICAL INDICATION:Male, 62 years old with history of M79.644 COMPARISON: None TECHNIQUE: XR hand complete RT, XR finger RT Frontal, lateral and oblique views were obtained. FINDINGS/IMPRESSION: 1. Scalloping of the second digit middle phalanx head could represent early gout changes. Otherwise no evidence for significant arthritis or gout. 2. The first digit does not demonstrate evidence for fracture or dislocation. There is minimal degen eration or evidence for gout.
[2023-02-27 16:54] LABS: Basophils # (A) 0.08 X 10*3/uL (0.00-0.10); Basophils % (A) 1.3 %; Eosinophils # (A) 0.22 X 10*3/uL (0.04-0.35); Eosinophils % (A) 3.6 %; HCT 45.2 % (39.6-50.0); HGB 15.1 d/dL (13.0-17.0); Lymphocytes # (A) 1.36 X 10*3/uL (0.90-5.00); Lymphocytes % (A) 22.2 %; MCH 28.8 pg (27.0-32.0); MCHC 33.4 d/dL (32.0-37.0); MCV 86.1 FL (80.0-97.0); Mean Platelet Volume 11.8 FL (9.5-12.2); Monocytes # (A) 0.68 X 10*3/uL (0.20-1.00); Monocytes % (A) 11.1 %; NRBC Per 100 WBC 0 X 10*3/uL (0.00-0.01); Neutrophils # (A) 3.73 X 10*3/uL (1.80-7.70); Neutrophils % (A) 60.8 %; Platelet Count 182 X 10*3/uL (140-440); RBC 5.25 X 10*6/uL (4.40-5.60); RDW 12.8 % (11.5-14.5); WBC 6.13 X 10*3/uL (4.50-10.00)
[2023-02-27 16:59] LABS: ALT 43 U/L (10-49); AST 30 U/L (14-35); Albumin 4.5 d/dL (3.8-4.9); Alkaline Phosphatase 64 U/L (41-126); BUN/Creat Ratio 12.33 Ratio (12.00-20.00); Blood Urea Nitrogen 11.1 mg/dL (9.0-27.0); Carbon Dioxide 30.8 mmol/L (21.6-31.8); Chloride 99 mmol/L (96-109); Chol/HDL Ratio 4.97 Ratio; Globulin 2.5 d/dL (1.6-3.3); Glucose 191 mg/dL (70-110); LDL Cholesterol,Calculated 134.3 mg/dL (0.0-131.0); Potassium 3.2 mmol/L (3.5-5.5); Sodium 145 mmol/L (135-145); Total Bilirubin 0.5 mg/dL (0.3-1.2); Uric Acid 5.4 mg/dL (3.7-8.7)
== END | disposition home or self-care (01) ==
LOC: LABWHC1 08:10
PROVIDERS: ATTEND Internal Medicine
DX: Z11.59 Encounter for screening for other viral diseases (principal); Z12.5 Encounter for screening for malignant neoplasm of prostate; I10 Essential (primary) hypertension; E11.9 Type 2 diabetes mellitus without complications; M79.675 Pain in left toe(s); M19.072 Primary osteoarthritis, left ankle and foot; M79.644 Pain in right finger(s); M19.041 Primary osteoarthritis, right hand; M10.9 Gout, unspecified
CPT/HCPCS: 86803; 80061; 80053; 84443; 84550; 85025; 82043; 82570; 83036; 73130; 73140; 73630; 36415; G0103

== ENCOUNTER → 2023-04-10 | Outpatient (CLI) | payer BC ==
--- NOTE | 2023-04-10 10:19 | PE ---
EXAMINATION TYPE: PET CT fusion skull to thigh DATE OF EXAM: 04/10/2023 CLINICAL INDICATION:Male, 63 years old with history of lymphoma; TECHNIQUE: Following the intravenous administration of 11.06 mCi of F-18 FDG, whole body images are performed from the skull base to the midthigh. Images are reviewed on the computer in the coronal, axial, and sagittal planes. Reconstructed rotating images are created on independent workstation and reviewed on the computer. A non-contrast CT is performed in conjunction with the PET scan. Glucose level 159 mg/dL CT DLP: 1011 mGycm, Automated exposure control for dose reduction was used. COMPARISON: CT None, PET/CT most recent 02/22/2022, FINDINGS: Mediastinal SUV mean is 2.4. Hepatic parenchyma SUV mean is 3.3. SKULL BASE AND NECK: No suspicious FDG activity. CHEST, MEDIASTINUM, AND HILAR REGION: * Interval increase in right axillary lymph nodes with increased FDG activity with max SUV 4.6, prev iously 2.6, 1.9 and the most FDG avid lymph node. There are now at least 4 more other lymph nodes wit h mild uptake within the right axilla. ABDOMEN AND PELVIS: * Multiple soft tissue densities within the mesentery of the abdomen there are stable measuring up to 2.1 x 2.1 cm 5.2, previously 1.8. * New left inguinal lymph nodes max SUV 6.6, previously not visualized. Measuring 10 mm in short axi s. There are at least 4 FDG avid lymph nodes in this region. * FDG avid left retroperitoneal lymph nodes max SUV 4.3 previously 1.7. OSSEOUS STRUCTURES: No suspicious FDG activity. OTHER CT: Atherosclerosis of the arterial vasculature including the carotid bifurcations. The heart i s moderately enlarged for size. Few scattered colonic diverticula present. An umbilical hernia is pre sent. IMPRESSION: Findings suggestive of progression of disease. Increasing FDG activity within the right axillary lymp h nodes, new left inguinal lymph nodes, increasing mesenteric lymph node FDG activity and retroperito uziel increasing metabolic activity.
== END | disposition home or self-care (01) ==
LOC: RADPETMAIN 07:06
PROVIDERS: ATTEND Internal Medicine Hematology & Oncology
DX: C83.32 Diffuse large B-cell lymphoma, intrathoracic lymph nodes (principal)
CPT/HCPCS: 78815; A9552

== ENCOUNTER → 2023-08-28 | Outpatient (CLI) | payer BC ==
--- NOTE | 2023-08-29 17:11 | PE ---
EXAMINATION TYPE: PET CT fusion skull to thigh DATE OF EXAM: 08/28/2023 COMPARISON: No recent pertinent CTs Prior PET/CT: 04/10/2023 HISTORY: Lymphoma TECHNIQUE: Following the intravenous administration of 11.34 mCi of F-18 FDG, whole body images are performed from the skull base to the midthigh. Images are reviewed on the computer in the coronal, a xial, and sagittal planes. Reconstructed rotating images are created on independent workstation and reviewed on the computer. A localization and attenuation correction CT is performed in conjunction with the PET scan. DLP: 806.15 mGycm SCAN: Subsequent Blood glucose: 120 mg/dL Average Mediastinum SUV: 2.15 Average Liver SUV: 2.74 FINDINGS: NECK: There is a punctate hyperintensity within a tiny lymph node posterior to the left sternocleido mastoid muscle, image 41, SUV 3.37. THORAX: There is mild uptake within the right axillary region. 3 sequential lymph nodes on image 65 u ptake measuring 1.62 medially, 1.29 made, and 1.74 laterally. These are nonspecific. Additional small lymph nodes are in the right axillary region. Within the inferior right there is a hyperintense lymph node, image 75, SUV 6.88. Previous SUV 4.54 An adjacent lymph node is hyperintense measuring 4.39, image 74. ABDOMEN: No abnormal uptake PELVIS: There is a punctate area of radiotracer within the left intraperitoneal inguinal region, imag e 213, SUV 4.72. Previous SUV 6.59. A hyperintense inguinal lymph nodes on image 231, SUV 7.48, previ ous SUV 4.61, and additional milder lymph node may be within the left inguinal region, image 2286 SUV 3.49 OSSEOUS STRUCTURES: No abnormal uptake LOCALIZATION CT: Small lymph nodes correspond to the areas of uptake on PET scan COMPARISON: Right axillary lymphadenopathy appears similar to prior IMPRESSION: 1. Distribution of lymphadenopathy within the right axillary region and left inguinal region was pres ent previously. SUV levels are changing with some increase seen in SUV from prior study. Couple lymph nodes are diminished from prior.
== END | disposition home or self-care (01) ==
LOC: RADPETMAIN 09:40
PROVIDERS: ATTEND Internal Medicine Hematology & Oncology
DX: C85.90 Non-Hodgkin lymphoma, unspecified, unspecified site (principal); C83.32 Diffuse large B-cell lymphoma, intrathoracic lymph nodes
CPT/HCPCS: 78815; A9552

== ENCOUNTER → 2024-03-11 | Outpatient (CLI) | payer BC ==
--- NOTE | 2024-03-14 20:06 | PE ---
EXAMINATION TYPE: PET CT fusion skull to thigh DATE OF EXAM: 03/11/2024 COMPARISON: No recent pertinent CT Prior PET/CT: 08/28/2023 HISTORY: Lymphoma TECHNIQUE: Following the intravenous administration of 10.94 mCi of F-18 FDG, whole body images are performed from the skull base to the midthigh. Images are reviewed on the computer in the coronal, a xial, and sagittal planes. Reconstructed rotating images are created on independent workstation and reviewed on the computer. A localization and attenuation correction CT is performed in conjunction with the PET scan. DLP: 916.02 mGycm SCAN: Subsequent Blood glucose: 118 mg/dL Average Mediastinum SUV: 2.2 Average Liver SUV: 3.24 FINDINGS: NECK: There is some mild uptake within the left neck lymphadenopathy, image 46, SUV 3.47 THORAX: There is intense uptake within a right axillary lymph node image 83, SUV 5.71. An additional right axillary lymph node measures SUV 4.42, image 96. ABDOMEN: No abnormal uptake PELVIS: There is intense uptake within a left inguinal lymph node image 234, measuring 6.66 SUV. [place] tional uptake is imaged to 39, SUV 6.14.. There is a focal area of uptake within a distal left iliac chain lymph node image 213, SUV 4.24 OSSEOUS STRUCTURES: No abnormal uptake LOCALIZATION CT: Small lymph nodes are noted bilaterally at the neck enlarged mediastinal or hilar ad enopathy is not identified. Axillary adenopathy is evident on the right left inguinal and iliac chain adenopathy is evident COMPARISON: Uptake within the left neck appears to be new. Uptake within the right axilla was present previously but appears to be increasing. Inguinal adenopathy was present previously but appears to b e slightly increased in SUV over the interval. IMPRESSION: 1. Persistent right axillary and left inguinal adenopathy with continued mild increase in SUV values. 2. New Identification of left neck adenopathy with increased uptake [facility], , 03/14/2024 8:04 PM
== END | disposition home or self-care (01) ==
LOC: RADPETMAIN 06:35
PROVIDERS: ATTEND Internal Medicine Hematology & Oncology
DX: C83.32 Diffuse large B-cell lymphoma, intrathoracic lymph nodes (principal); R59.0 Localized enlarged lymph nodes
CPT/HCPCS: 78815; A9552

== ENCOUNTER → 2024-08-19 | Outpatient (CLI) | payer BC ==
--- NOTE | 2024-08-26 13:47 | P.PCN ---
Description of Procedure: CLINICAL: A home sleep apnea test has been done for confirmation of possible obstructive sleep apnea-hypopnea syndrome. DESCRIPTION OF PROCEDURE: RESULTS: Recording time was 7 hours 30 minutes. Evaluation time was 7 hours 19 minutes. Evaluation time is sufficient for making conclusion about results of the test. Raw data of sleep recording has been reviewed and is adequate. Respiratory channel showed 53 apneas and 217 hypopneas. Apnea-hypopnea index was 36.9 per hour. Pulse rate in the range between minimum 56, maximum 213, average 68 by computer calculation. Lowest desaturation was 72%. IMPRESSION: 1. Severe Obstructive Sleep Apnea Hypopnea Syndrome with severe oxygen desaturation. Please see other impressions from consultation. PLAN: 1. The patient should have PAP titration for correction of respiratory abnormallities during sleep. 2. Sleep hygiene with regular time in bed for at least 8 hours. 3. Watching and losing weight. 4. No driving if feeling any sleepiness. Thank you very much for allowing me to participate in the management of your patient. Sincerely, Gabriel Alejandra MD, PhD, FAASM Diplomat of [employer] Sleep Medicine Board of [employer] of [facility] cc: Amor Muñoz DO
== END ==
LOC: 3 N SLEEP 16:49
PROVIDERS: ATTEND Internal Medicine
DX: G47.33 Obstructive sleep apnea (adult) (pediatric) (principal)

== ENCOUNTER → 2024-09-02 | Outpatient (CLI) | payer BC ==
--- NOTE | 2024-09-02 14:42 | PE ---
EXAMINATION TYPE: PET CT fusion skull to thigh DATE OF EXAM: 09/02/2024 COMPARISON: Prior PET/CT March 10, 2024 and older studies. HISTORY: Non-Hodgkin's lymphoma progress study. Completed chemotherapy 2018. TECHNIQUE: Following the intravenous administration of 9.88 mCi of F-18 FDG, whole body images are p erformed from the skull base to the midthigh. Images are reviewed on the computer in the coronal, ax ial, and sagittal planes. Reconstructed rotating images are created on independent workstation and r eviewed on the computer. A localization and attenuation correction CT is performed in conjunction w ith the PET scan. Blood glucose level equals 132. SCAN: Subsequent Scan FINDINGS: Mean SUV mediastinum: 1.08 Mean SUV liver: 2.83. SKULL BASE AND NECK: No new or increasing areas of suspicious abnormal hypermetabolic uptake. Stable slightly prominent left-sided neck lymph nodes with mild uptake. Max SUV is 3.54 versus 3.82 on prio r. CHEST, MEDIASTINUM, AND HILAR REGION: More prominent right axillary lymph node axial image 77 now presley suring 1.4 x 1.1 cm, Max SUV is 6.67 versus 4.17 on prior. Adjacent subcentimeter mildly hypermetabol ic lymph nodes are redemonstrated. No new areas of abnormal hypermetabolic uptake. ABDOMEN AND PELVIS: Distal left external iliac chain lymph node axial image 232 has max SUV of 3.84 v ersus 4.46 on prior. Stable in size elongated left groin lymph node axial image 250 with mild hyperme tabolic uptake, max SUV is 3.74 versus 6.66 on prior. Adjacent lymph node just medial to this shows s tability in size axial image 256 measuring near 9 mm, max SUV is 4.88 versus prior 7.39. No new areas of abnormal hypermetabolic uptake. OSSEOUS STRUCTURES: No new areas of abnormal hypermetabolic uptake. OTHER CT: No significant coronary artery calcification. Mild cardiomegaly redemonstrated. Liver is he terogeneously hypodense consistent with diffuse fatty infiltration. Sigmoid colonic diverticulosis is redemonstrated. Enlarged prostate consistent with BPH is again seen. IMPRESSION: Slightly more prominent right axillary lymph node is most concerning on current exam. Oth er findings stable or showing improvement in hypermetabolic uptake from most recent prior PET/CT. [facility], , 09/02/2024 2:39 PM
== END | disposition home or self-care (01) ==
LOC: RADPETMAIN 06:39
PROVIDERS: ATTEND Internal Medicine Hematology & Oncology
DX: C83.32 Diffuse large B-cell lymphoma, intrathoracic lymph nodes (principal)
CPT/HCPCS: 78815; A9552

== ENCOUNTER 2024-12-02 19:42 | Outpatient (CLI) | payer BC ==
--- NOTE | 2024-12-03 18:18 | P.PCN ---
Description of Procedure: CLINICAL: Titration with positive air pressure has been done for correction of respiratory abnormalities during sleep. DESCRIPTION OF PROCEDURE: The standard montage for clinical polysomnography included the electroencephalogram, the electrocardiogram, the mentalis surface electromyography and Lead II cardiography. The respiratory battery consisted of measurements of nasal /buccal air flow, pressure transducer measurements from the nose, thoracic and /or abdominal effort and intercostal surface electromyography. Video monitoring has been done to check for any parasomnia events. Nocturnal oxyhemoglobin saturations were obtained by finger oximetry. Step-gomes titration with positive airway pressure was utilized to control respiratory events. Raw data of sleep recording has been reviewed and is adequate. RESULTS: Sleep efficiency was significantly decreased to 65.9%. Latency to sleep onset was normal 19.5 minutes.]. Sleep architecture showed stage N1 was short 1.8%, Delta sleep was absent 0%, REM sleep was normal 23.9%. Heart rate was minimum 63 BPM, maximum 73 BPM, average 66 BPM. EMG showed 4.7 periodic limb movements per hour with 0.2 micriarousals per hour. PAP titration have been done with CPAP up to the pressure 12 cm H2O. The best results were at the pressure 7 cm H2O. Apnea hypopnea index reduced to 0. IMPRESSION: 1. Obstructive sleep apnea hypopnea syndrome on controle with PAP treatment. 2. No significant periodic limb movements have been documented. Please see other impressions from consultation. PLAN: 1. The patient will have treatment with positive air pressure equipment with the level of pressure AutoPAP 5-12 cm H2O and should use it every night for the whole night. 2. Watching and losing weight. 3. Sleep hygiene with regular time in bed for at least 8 hours. 4. No driving if feeling any sleepiness. 5. I will see the patient for follow up visit to explain the results of the test , recommendations, check compliance with treatment and make any necessary adjustment related to mask fitting, pressure and humidification. Thank you very much for allowing me to participate in the management of your patient. Sincerely, Gabriel Alejandra MD, PhD, FAASM Diplomat of [employer] Sleep Medicine Board of [place] [employer] [facility] cc: Amor Muñoz DO
== END 2024-12-03 05:40 | disposition home or self-care (01) ==
LOC: 3 N SLEEP 19:42
PROVIDERS: ATTEND Internal Medicine
DX: G47.33 Obstructive sleep apnea (adult) (pediatric) (principal)
CPT/HCPCS: 95811